=== PATIENT | male | born 1945 | race African-American/Black ===

== ENCOUNTER 2020-08-21 18:42 | Inpatient (IN) | payer MEDICARE, SELFPAY ==
[~2020-08-21] VITALS: Ht 188 cm; Wt 90.7 kg
[2020-08-21 18:42] VITALS: BP_SYST 164
[2020-08-21] MEDS ORDERED: ETOMIDATE 20 MG/ 10 ML VIAL (AMIDATE) IVP ONE (19:15)
[2020-08-21] MEDS ORDERED: INSULIN REGULAR, HUMAN 100 UNITS in NS 99 ML IV ONE ×2 (19:15)
[2020-08-21] MEDS ORDERED: SUCCINYLCHOLINE CHLORIDE 20 MG/ML(QUELICIN) IVP ONE (19:15)
[2020-08-21] MEDS ORDERED: VANCOMYCIN HCL 1,000 MG in NS 250 ML IV ONE (19:15)
[2020-08-21] MEDS ORDERED: PIPERACILLIN/TAZO 3.375 GM in NS 50 ML IV ONE (19:15)
[2020-08-21] MEDS ORDERED: NACL 0.9% 2,500 ML IV ONE (19:15)
[2020-08-21] MEDS ORDERED: PROPOFOL DRIP 100 ML IV ONE ×2 (19:45→23:05)
[2020-08-21] MEDS ORDERED: LORazepam 2 MG/ML VIAL ONE (20:21)
[2020-08-21] MEDS ORDERED: LORazepam 2 MG/ML VIAL IVP ONE (20:30)
[2020-08-21] MEDS ORDERED: INSULIN REGULAR, HUMAN 10 UNITS/0.1 ML INJ ONE (20:53)
[2020-08-21] MEDS ORDERED: PIPERACILLIN/TAZOBACTAM 3.375 GM/VIAL (ZOSYN) IV ONE (21:26)
[2020-08-21] MEDS ORDERED: VANCOMYCIN HCL 1000 MG/VIAL IV ONE (21:26)
[2020-08-21] MEDS ORDERED: PANTOPRAZOLE SODIUM 40 MG in NS 50 ML IV ONE (21:45)
[2020-08-21] MEDS ORDERED: PANTOPRAZOLE SODIUM 40 MG/VIAL (PROTONIX) ONE ×2 (22:02)
[2020-08-21 22:12] LABS: BASOPHILS # (AUTO) 0.1 K/uL (0.0-0.2); BASOPHILS % (AUTO) 0.3 % (0.0-2.0); HEMATOCRIT 28.6 % (36-54); HEMOGLOBIN 9.1 g/dL (14.0-18.0); LYMPHOCYTES # (AUTO) 0.4 K/uL (1.0-5.5); LYMPHOCYTES % (AUTO) 1.8 % (20.5-51.5); MEAN CORPUSCULAR HEMOGLOBIN 28 pg (27-31); MEAN CORPUSCULAR HGB CONC 32 % (32-36); MEAN CORPUSCULAR VOLUME 90 fL (79.0-98.0); MONOCYTES # (AUTO) 0.8 K/uL (0.0-1.0); MONOCYTES % (AUTO) 3.9 % (1.7-9.3); NEUTROPHILS # (AUTO) 20.5 K/uL (1.8-7.7); PLATELET COUNT (AUTO) 302 K/uL (130-430); RED CELL DISTRIBUTION WIDTH 15.1 % (9.0-15.0); WHITE BLOOD COUNT (AUTO) 21.8 K/uL (4.8-10.8)
[2020-08-21 22:25] LABS: C-REACTIVE PROTEIN QUANT 1.2 mg/dL (0-0.5)
[2020-08-21 22:27] LABS: ANION GAP 9 (5-15); CHLORIDE 101 mmol/L (98-107); CREATININE 4.62 mg/dL (0.55-1.30); POTASSIUM 5.2 mmol/L (3.5-5.1); SODIUM SERUM 132 mmol/L (136-145); UREA NITROGEN, BLOOD 64 mg/dL (8-21)
[2020-08-21 22:30] LABS: ALANINE AMINOTRANSFERASE 23 U/L (12-78); ALBUMIN 2.4 g/dL (3.4-4.8); ASPARTATE AMINOTRANSFERASE 15 U/L (10-37); TOTAL BILIRUBIN 0.2 mg/dL (0.0-1.0)
[2020-08-21 22:55] LABS: GLUCOSE 937 mg/dL (70-99)
[2020-08-21 23:23] LABS: ACETONE, SERUM SMALL (NEGATIVE)
[2020-08-21] MEDS ORDERED: INSU100V42 SQ (23:57)
[2020-08-22] VITALS (8 sets, daily range): BP systolic 120–141
[2020-08-22] MEDS ORDERED: MORPHINE 2 MG/ML INJ. SYRINGE IVP PRN (00:15)
[2020-08-22] MEDS ORDERED: PANTOPRAZOLE SODIUM 40 MG/VIAL (PROTONIX) IVP ONE (00:15)
[2020-08-22] MEDS ORDERED: LORazepam 2 MG/ML VIAL IVP PRN ×2 (00:15→07:45)
[2020-08-22 00:17] LABS: BILIRUBIN,URINE NEGATIVE (NEGATIVE); BLOOD, URINE 2+ (NEGATIVE); COLOR,URINE YELLOW (YELLOW); GLUCOSE,URINE 3+ (NEGATIVE); KETONES,URINE NEGATIVE (NEGATIVE); LEUKOCYTE ESTERASE ,URINE NEGATIVE (NEGATIVE); NITRITE, URINE NEGATIVE (NEGATIVE); PROTEIN URINE 3+ (NEGATIVE); UROBILINOGEN,URINE 0.2 (0.2-1.0)
[2020-08-22 00:22] LABS: CLARITY/URINE SLIGHTLY HAZY (CLEAR)
[2020-08-22] MEDS: NACL 0.9% 1,000 ML IV SCH ×2 (00:39→17:54)
[2020-08-22 00:54] LABS: BACTERIA,URINE FEW /HPF (None Seen); WBC,URINE 0-3 /HPF (0-3)
[2020-08-22 00:55] LABS: URINE AMORPHOUS URATE 1+ /HPF (None Seen)
[2020-08-22] MEDS ORDERED: PROPOFOL DRIP 100 ML IV ONE ×6 (00:59→15:12)
[2020-08-22 01:09] LABS: ACETONE, SERUM SMALL (NEGATIVE)
[2020-08-22] MEDS ORDERED: GLIP5TAB26 PO (01:31)
[2020-08-22] MEDS ORDERED: HYT1 PO (01:31)
[2020-08-22] MEDS ORDERED: FURO-150 PO (01:31)
[2020-08-22] MEDS ORDERED: CALC0.258 PO (01:31)
[2020-08-22 01:34] LABS: ALANINE AMINOTRANSFERASE 20 U/L (12-78); ALBUMIN 2.2 g/dL (3.4-4.8); ANION GAP 8 (5-15); ASPARTATE AMINOTRANSFERASE 14 U/L (10-37); CALCIUM 7.5 mg/dL (8.4-11.0); CHLORIDE 105 mmol/L (98-107); CREATININE 4.58 mg/dL (0.55-1.30); PHOSPHORUS 7.8 mg/dL (2.7-4.5); POTASSIUM 4.7 mmol/L (3.5-5.1); SODIUM SERUM 136 mmol/L (136-145); TOTAL BILIRUBIN 0.1 mg/dL (0.0-1.0); UREA NITROGEN, BLOOD 66 mg/dL (8-21)
[2020-08-22 01:35] LABS: GLUCOSE 730 mg/dL (70-99)
[2020-08-22] MEDS ORDERED: ASA81 PO (01:35)
[2020-08-22] MEDS ORDERED: ATOR10TA68 PO (01:35)
[2020-08-22] MEDS ORDERED: CLON0.1T PO (01:35)
[2020-08-22] MEDS ORDERED: FERR-69 PO (01:35)
[2020-08-22] MEDS ORDERED: TRAZ-250 PO (01:35)
[2020-08-22] MEDS ORDERED: INSU100V9 SQ (01:35)
[2020-08-22] MEDS ORDERED: METO200T3 PO (01:35)
[2020-08-22] MEDS ORDERED: HYDR100T25 PO (01:35)
[2020-08-22] MEDS ORDERED: DITXL5 PO (01:35)
[2020-08-22] MEDS ORDERED: ERGO500020 PO (01:35)
[2020-08-22] MEDS: INSULIN REGULAR, HUMAN 100 UNITS in NS 99 ML IV PRN ×2 (03:08)
[2020-08-22 07:57] LABS: BASOPHILS % (AUTO) 0.3 % (0.0-2.0); HEMOGLOBIN 8.3 g/dL (14.0-18.0); LYMPHOCYTES # (AUTO) 0.8 K/uL (1.0-5.5); LYMPHOCYTES % (AUTO) 5.6 % (20.5-51.5); MEAN CORPUSCULAR HEMOGLOBIN 28 pg (27-31); MEAN CORPUSCULAR HGB CONC 33 % (32-36); MEAN CORPUSCULAR VOLUME 86 fL (79.0-98.0); MONOCYTES # (AUTO) 0.8 K/uL (0.0-1.0); MONOCYTES % (AUTO) 5.1 % (1.7-9.3); NEUTROPHILS # (AUTO) 13.4 K/uL (1.8-7.7); PLATELET COUNT (AUTO) 224 K/uL (130-430); RED BLOOD CELL COUNT(AUTO) 2.92 MIL/uL (4.2-6.2); WHITE BLOOD COUNT (AUTO) 15.1 K/uL (4.8-10.8)
[2020-08-22 08:42] LABS: ANION GAP 11 (5-15); CALCIUM 7.8 mg/dL (8.4-11.0); CHLORIDE 107 mmol/L (98-107); CREATININE 4.47 mg/dL (0.55-1.30); POTASSIUM 4.4 mmol/L (3.5-5.1); SODIUM SERUM 139 mmol/L (136-145); UREA NITROGEN, BLOOD 65 mg/dL (8-21)
[2020-08-22 08:59] LABS: GLUCOSE 427 mg/dL (70-99)
[2020-08-22] MEDS ORDERED: FAMOTIDINE PF 20 MG/2 ML VIAL IVP SCH (09:00)
[2020-08-22] MEDS ORDERED: PIPERACILLIN/TAZO 3.375/DEX-IS 50 ML IV SCH (12:00)
[2020-08-22] MEDS ORDERED: SUCCINYLCHOLINE CHLORIDE 20 MG/ML(QUELICIN) IVP ONE (12:20)
[2020-08-22] MEDS ORDERED: ETOMIDATE 20 MG/ 10 ML VIAL (AMIDATE) IVP ONE (12:20)
[2020-08-22 12:21] LABS: ALANINE AMINOTRANSFERASE 20 U/L (12-78); ANION GAP 7 (5-15); ASPARTATE AMINOTRANSFERASE 20 U/L (10-37); CALCIUM 7.7 mg/dL (8.4-11.0); CHLORIDE 109 mmol/L (98-107); CREATININE 4.84 mg/dL (0.55-1.30); GLUCOSE 268 mg/dL (70-99); SODIUM SERUM 141 mmol/L (136-145); TOTAL BILIRUBIN 0.2 mg/dL (0.0-1.0); UREA NITROGEN, BLOOD 68 mg/dL (8-21)
[2020-08-22] MEDS: ALBUTEROL SULFATE 0.083% 2.5 MG/3 ML VIAL.NEB INH SCH (15:00)
[2020-08-22] MEDS: IPRATROPIUM BROM 0.5 MG/2.5 ML VIAL.NEB (ATROVENT) INH SCH (15:00)
[2020-08-22] MEDS: PROPOFOL DRIP 100 ML IV SCH (17:51)
[2020-08-22] MEDS: D5/0.45 NS 1,000 ML IV SCH (18:35)
[2020-08-22] MEDS: PANTOPRAZOLE SODIUM 40 MG/VIAL (PROTONIX) IVP SCH (21:31)
[2020-08-22] MEDS: levETIRAcetam 500 MG in NS 100 ML IV SCH (21:32)
[2020-08-23] VITALS (30 sets, daily range): BP systolic 111–221
[2020-08-23] MEDS: D5/0.45 NS 1,000 ML IV SCH ×2 (03:12→15:04)
[2020-08-23] MEDS ORDERED: hydrALAZINE HCL 20 MG/ML VIAL IVP PRN (03:30)
[2020-08-23] MEDS ORDERED: hydrALAZINE HCL 20 MG/ML VIAL ONE ×2 (03:39→09:27)
[2020-08-23] MEDS ORDERED: GLUCOSE (DEXTROSE) ORAL GEL -Adults PO PRN (03:45)
[2020-08-23] MEDS ORDERED: DEXTROSE 50% JECT 50 ML DISP.SYRIN IVP PRN (03:45)
[2020-08-23] MEDS ORDERED: D5W 1,000 ML IV PRN (03:45)
[2020-08-23] MEDS: PROPOFOL DRIP 100 ML IV SCH ×7 (03:50→22:04)
[2020-08-23] MEDS: hydrALAZINE HCL 20 MG/ML VIAL IVP PRN ×2 (03:51→09:29)
[2020-08-23] MEDS ORDERED: PROPOFOL DRIP 100 ML IV ONE ×2 (05:17→09:09)
[2020-08-23] MEDS: INSULIN REGULAR, HUMAN 100 UNITS/ML, 10 ML VIAL (humuLIN R) SUBCUT PRN ×4 (05:21→18:20)
[2020-08-23 06:49] LABS: ALANINE AMINOTRANSFERASE 20 U/L (12-78); ALBUMIN 2.1 g/dL (3.4-4.8); ANION GAP 12 (5-15); ASPARTATE AMINOTRANSFERASE 28 U/L (10-37); CHLORIDE 108 mmol/L (98-107); CREATININE 5.29 mg/dL (0.55-1.30); GLUCOSE 253 mg/dL (70-99); POTASSIUM 3.6 mmol/L (3.5-5.1); SODIUM SERUM 140 mmol/L (136-145); TOTAL BILIRUBIN 0.2 mg/dL (0.0-1.0); UREA NITROGEN, BLOOD 64 mg/dL (8-21)
[2020-08-23] MEDS: ALBUTEROL SULFATE 0.083% 2.5 MG/3 ML VIAL.NEB INH SCH ×3 (07:00→20:24)
[2020-08-23] MEDS: IPRATROPIUM BROM 0.5 MG/2.5 ML VIAL.NEB (ATROVENT) INH SCH ×3 (07:00→20:24)
[2020-08-23 07:51] LABS: BASOPHILS % (AUTO) 0.3 % (0.0-2.0); EOSINOPHILS % (AUTO) 0.1 % (0.0-4.0); HEMATOCRIT 25.7 % (36-54); HEMOGLOBIN 8.5 g/dL (14.0-18.0); LYMPHOCYTES # (AUTO) 1.2 K/uL (1.0-5.5); LYMPHOCYTES % (AUTO) 8.7 % (20.5-51.5); MEAN CORPUSCULAR HEMOGLOBIN 28 pg (27-31); MEAN CORPUSCULAR HGB CONC 33 % (32-36); MEAN CORPUSCULAR VOLUME 85 fL (79.0-98.0); MONOCYTES # (AUTO) 0.7 K/uL (0.0-1.0); MONOCYTES % (AUTO) 5.3 % (1.7-9.3); NEUTROPHILS # (AUTO) 11.6 K/uL (1.8-7.7); NEUTROPHILS % (AUTO) 85.6 % (40.0-70.0); PLATELET COUNT (AUTO) 236 K/uL (130-430); RED BLOOD CELL COUNT(AUTO) 3.01 MIL/uL (4.2-6.2); RED CELL DISTRIBUTION WIDTH 15.1 % (9.0-15.0); WHITE BLOOD COUNT (AUTO) 13.6 K/uL (4.8-10.8)
[2020-08-23 08:23] LABS: C-REACTIVE PROTEIN QUANT 14.5 mg/dL (0-0.5)
[2020-08-23] MEDS: levETIRAcetam 500 MG in NS 100 ML IV SCH ×2 (09:16→22:00)
[2020-08-23] MEDS: PANTOPRAZOLE SODIUM 40 MG/VIAL (PROTONIX) IVP SCH ×2 (09:17→22:00)
[2020-08-23 10:50] LABS: ERYTHROCYTE SEDIMENTATION RATE 72 MM/HR (0-15)
[2020-08-23 11:16] LABS: PROTHROMBIN TIME 9.8 SECS (9.5-12.5)
[2020-08-23] MEDS ORDERED: POTASSIUM CHLORIDE 40 MEQ in NS 250 ML IV ONE (14:30)
[2020-08-23] MEDS: METOPROLOL TARTRATE 5 MG/5 ML VIAL IVP SCH ×3 (15:04→23:49)
[2020-08-23] MEDS ORDERED: fentaNYL CITRATE/PF 100 MCG/2 ML AMP IVP PRN (18:15)
[2020-08-23] MEDS: MEROPENEM 500 MG in NS 50 ML IV SCH (22:00)
[2020-08-24] VITALS (28 sets, daily range): BP systolic 121–166
[2020-08-24] MEDS: IPRATROPIUM BROM 0.5 MG/2.5 ML VIAL.NEB (ATROVENT) INH SCH ×5 (00:07→19:00)
[2020-08-24] MEDS: ALBUTEROL SULFATE 0.083% 2.5 MG/3 ML VIAL.NEB INH SCH ×5 (00:07→19:00)
[2020-08-24] MEDS: D5/0.45 NS 1,000 ML IV SCH ×3 (01:24→20:30)
[2020-08-24] MEDS: INSULIN REGULAR, HUMAN 100 UNITS/ML, 10 ML VIAL (humuLIN R) SUBCUT PRN ×3 (01:25→19:10)
[2020-08-24] MEDS: PROPOFOL DRIP 100 ML IV SCH ×4 (03:54→19:51)
[2020-08-24] MEDS: METOPROLOL TARTRATE 5 MG/5 ML VIAL IVP SCH ×4 (05:48→23:45)
[2020-08-24 08:17] LABS: ALANINE AMINOTRANSFERASE 17 U/L (12-78); ALBUMIN 1.6 g/dL (3.4-4.8); ANION GAP 12 (5-15); CALCIUM 7.6 mg/dL (8.4-11.0); CHLORIDE 107 mmol/L (98-107); CREATININE 6.34 mg/dL (0.55-1.30); GLUCOSE 309 mg/dL (70-99); PHOSPHORUS 6.2 mg/dL (2.7-4.5); SODIUM SERUM 137 mmol/L (136-145); TOTAL BILIRUBIN 0.2 mg/dL (0.0-1.0); UREA NITROGEN, BLOOD 67 mg/dL (8-21)
[2020-08-24] MEDS: PANTOPRAZOLE SODIUM 40 MG/VIAL (PROTONIX) IVP SCH ×2 (08:49→21:00)
[2020-08-24] MEDS: levETIRAcetam 500 MG in NS 100 ML IV SCH ×2 (08:49→22:09)
[2020-08-24] MEDS: MEROPENEM 500 MG in NS 50 ML IV SCH ×2 (08:49→20:59)
[2020-08-24 09:07] LABS: HEMATOCRIT 23.8 % (36-54); MEAN CORPUSCULAR HEMOGLOBIN 29 pg (27-31); MEAN CORPUSCULAR HGB CONC 34 % (32-36); MEAN CORPUSCULAR VOLUME 86 fL (79.0-98.0); PLATELET COUNT (AUTO) 201 K/uL (130-430); RED BLOOD CELL COUNT(AUTO) 2.78 MIL/uL (4.2-6.2); RED CELL DISTRIBUTION WIDTH 16.1 % (9.0-15.0); WHITE BLOOD COUNT (AUTO) 8.8 K/uL (4.8-10.8)
[2020-08-24] MEDS ORDERED: PROPOFOL DRIP 100 ML IV ONE (09:52)
[2020-08-24 09:55] LABS: ASPARTATE AMINOTRANSFERASE 13 U/L (10-37)
[2020-08-24] MEDS ORDERED: HEPARIN SODIUM,PORCINE 5,000 UNITS/ML VIAL ONE (12:22)
[2020-08-24] MEDS ORDERED: HEPARIN SODIUM, PORCINE 10,000 UNITS/ 10 ML VIAL MC ONE (17:30)
[2020-08-25] VITALS (29 sets, daily range): BP systolic 122–169
[2020-08-25] MEDS: IPRATROPIUM BROM 0.5 MG/2.5 ML VIAL.NEB (ATROVENT) INH SCH ×7 (00:15→22:20)
[2020-08-25] MEDS: ALBUTEROL SULFATE 0.083% 2.5 MG/3 ML VIAL.NEB INH SCH ×7 (00:15→22:20)
[2020-08-25] MEDS: INSULIN REGULAR, HUMAN 100 UNITS/ML, 10 ML VIAL (humuLIN R) SUBCUT PRN ×4 (03:07→18:12)
[2020-08-25] MEDS: D5/0.45 NS 1,000 ML IV SCH (04:35)
[2020-08-25] MEDS: PROPOFOL DRIP 100 ML IV SCH ×4 (04:40→17:10)
[2020-08-25] MEDS: METOPROLOL TARTRATE 5 MG/5 ML VIAL IVP SCH ×3 (04:45→18:14)
[2020-08-25 07:00] LABS: BASOPHILS % (AUTO) 0.4 % (0.0-2.0); EOSINOPHILS # (AUTO) 0.3 K/uL (0.0-0.4); EOSINOPHILS % (AUTO) 3.5 % (0.0-4.0); LYMPHOCYTES # (AUTO) 0.8 K/uL (1.0-5.5); LYMPHOCYTES % (AUTO) 10.3 % (20.5-51.5); MEAN CORPUSCULAR HEMOGLOBIN 29 pg (27-31); MEAN CORPUSCULAR HGB CONC 34 % (32-36); MEAN CORPUSCULAR VOLUME 85 fL (79.0-98.0); MONOCYTES # (AUTO) 0.5 K/uL (0.0-1.0); NEUTROPHILS # (AUTO) 5.9 K/uL (1.8-7.7); NEUTROPHILS % (AUTO) 78.8 % (40.0-70.0); PLATELET COUNT (AUTO) 196 K/uL (130-430); RED CELL DISTRIBUTION WIDTH 15.4 % (9.0-15.0); WHITE BLOOD COUNT (AUTO) 7.5 K/uL (4.8-10.8)
[2020-08-25 07:09] LABS: ALANINE AMINOTRANSFERASE 17 U/L (12-78); ALBUMIN 1.7 g/dL (3.4-4.8); ANION GAP 12 (5-15); ASPARTATE AMINOTRANSFERASE 9 U/L (10-37); CALCIUM 7.3 mg/dL (8.4-11.0); CHLORIDE 102 mmol/L (98-107); CREATININE 5.35 mg/dL (0.55-1.30); GLUCOSE 383 mg/dL (70-99); PHOSPHORUS 6.3 mg/dL (2.7-4.5); POTASSIUM 3.8 mmol/L (3.5-5.1); SODIUM SERUM 136 mmol/L (136-145); TOTAL BILIRUBIN 0.2 mg/dL (0.0-1.0); UREA NITROGEN, BLOOD 48 mg/dL (8-21)
[2020-08-25 07:56] LABS: BAND % (MANUAL) 16 % (0-6)
[2020-08-25 07:57] LABS: BASOPHILS % (MANUAL) 0 % (0-2); EOSINOPHILS % (MANUAL) 4 % (0-7); LYMPHOCYTES % (MANUAL) 0 % (20-46); MONOCYTES % (MANUAL) 3 % (0-11)
[2020-08-25 08:05] LABS: C-REACTIVE PROTEIN QUANT 18.1 mg/dL (0-0.5)
[2020-08-25] MEDS: MEROPENEM 500 MG in NS 50 ML IV SCH ×2 (08:05→20:16)
[2020-08-25] MEDS: PANTOPRAZOLE SODIUM 40 MG/VIAL (PROTONIX) IVP SCH ×2 (08:05→20:16)
[2020-08-25] MEDS: levETIRAcetam 500 MG in NS 100 ML IV SCH ×2 (08:05→21:02)
[2020-08-25] MEDS: MORPHINE 4 MG/ML INJ. SYRINGE IVP PRN (08:20)
[2020-08-25] MEDS ORDERED: ACETAMINOPHEN 650 MG/20.3 ML UDC ONE (08:23)
[2020-08-25 09:54] LABS: HEMATOCRIT 21.2 % (36-54); HEMOGLOBIN 7.1 g/dL (14.0-18.0)
[2020-08-25 10:22] LABS: C-REACTIVE PROTEIN QUANT 21.6 mg/dL (0-0.5)
[2020-08-25 11:20] LABS: ERYTHROCYTE SEDIMENTATION RATE 90 MM/HR (0-15)
[2020-08-25] MEDS: ACETAMINOPHEN 650 MG/20.3 ML UDC GT PRN (11:48)
[2020-08-25] MEDS: 0.45% NACL 1,000 ML IV SCH (11:48)
[2020-08-25] MEDS ORDERED: INSULIN GLARGINE 100 UNITS/ML 10 ML VIAL SUBCUT ONE (12:00)
[2020-08-25] MEDS ORDERED: HEPARIN SODIUM,PORCINE 5,000 UNITS/ML VIAL ONE (14:22)
[2020-08-25] MEDS: DEXMEDETOMIDINE HCL 400 MCG in NS 96 ML IV PRN (20:18)
[2020-08-26] VITALS (20 sets, daily range): BP systolic 137–173
[2020-08-26] LABS: HEMOGLOBIN 7.3 g/dL (14.0-18.0)
[2020-08-26 00:02] LABS: HEMATOCRIT 21.6 % (36-54)
[2020-08-26] MEDS: METOPROLOL TARTRATE 5 MG/5 ML VIAL IVP SCH ×4 (00:05→17:45)
[2020-08-26] MEDS: INSULIN REGULAR, HUMAN 100 UNITS/ML, 10 ML VIAL (humuLIN R) SUBCUT PRN ×4 (00:24→18:32)
[2020-08-26] MEDS: ALBUTEROL SULFATE 0.083% 2.5 MG/3 ML VIAL.NEB INH SCH ×6 (02:20→23:00)
[2020-08-26] MEDS: IPRATROPIUM BROM 0.5 MG/2.5 ML VIAL.NEB (ATROVENT) INH SCH ×6 (02:20→23:00)
[2020-08-26] MEDS: MORPHINE 4 MG/ML INJ. SYRINGE IVP PRN ×2 (04:26→09:33)
[2020-08-26] MEDS: 0.45% NACL 1,000 ML IV SCH (05:47)
[2020-08-26 07:32] LABS: BASOPHILS # (AUTO) 0.1 K/uL (0.0-0.2); BASOPHILS % (AUTO) 0.6 % (0.0-2.0); EOSINOPHILS # (AUTO) 0.6 K/uL (0.0-0.4); EOSINOPHILS % (AUTO) 6.3 % (0.0-4.0); HEMATOCRIT 25.5 % (36-54); HEMOGLOBIN 8.6 g/dL (14.0-18.0); LYMPHOCYTES # (AUTO) 0.7 K/uL (1.0-5.5); LYMPHOCYTES % (AUTO) 8.5 % (20.5-51.5); MEAN CORPUSCULAR HEMOGLOBIN 29 pg (27-31); MEAN CORPUSCULAR HGB CONC 34 % (32-36); MEAN CORPUSCULAR VOLUME 85 fL (79.0-98.0); MONOCYTES # (AUTO) 0.7 K/uL (0.0-1.0); MONOCYTES % (AUTO) 7.6 % (1.7-9.3); NEUTROPHILS # (AUTO) 6.8 K/uL (1.8-7.7); PLATELET COUNT (AUTO) 201 K/uL (130-430); RED CELL DISTRIBUTION WIDTH 15.5 % (9.0-15.0); WHITE BLOOD COUNT (AUTO) 8.9 K/uL (4.8-10.8)
[2020-08-26 08:46] LABS: ERYTHROCYTE SEDIMENTATION RATE 92 MM/HR (0-15)
[2020-08-26] MEDS ORDERED: INSULIN GLARGINE 100 UNITS/ML 10 ML VIAL SUBCUT SCH (09:00)
[2020-08-26 09:02] LABS: ANION GAP 11 (5-15); CALCIUM 7.9 mg/dL (8.4-11.0); CHLORIDE 102 mmol/L (98-107); GLUCOSE 285 mg/dL (70-99); PHOSPHORUS 6.6 mg/dL (2.7-4.5); POTASSIUM 4.2 mmol/L (3.5-5.1); SODIUM SERUM 139 mmol/L (136-145); UREA NITROGEN, BLOOD 39 mg/dL (8-21)
[2020-08-26] MEDS: MEROPENEM 500 MG in NS 50 ML IV SCH ×3 (09:27→21:59)
[2020-08-26] MEDS: PANTOPRAZOLE SODIUM 40 MG/VIAL (PROTONIX) IVP SCH ×2 (09:27→21:59)
[2020-08-26] MEDS: levETIRAcetam 500 MG in NS 100 ML IV SCH ×2 (09:28→21:59)
[2020-08-26] MEDS: ACETAMINOPHEN 650 MG/20.3 ML UDC GT PRN (10:40)
[2020-08-26] MEDS ORDERED: OFLOXACIN 0.3% OPHTHALMIC DROPS 5 ML OP ONE (13:45)
[2020-08-26] MEDS ORDERED: DOCUSATE SODIUM 250 MG CAPSULE PO ONE (14:00)
[2020-08-26] MEDS ORDERED: POLYETHYLENE GLYCOL 3350, 17 GM/ POWD.PACK PO ONE (14:00)
[2020-08-26] MEDS ORDERED: SENNA 8.8 MG/5 ML UDC GT SCH ×2 (14:15→21:00)
[2020-08-26 14:19] LABS: C-REACTIVE PROTEIN QUANT 15.8 mg/dL (0-0.5)
[2020-08-26] MEDS ORDERED: SENNOSIDES 8.6 MG TABLET ONE (14:50)
[2020-08-26] MEDS ORDERED: FUROSEMIDE 40 MG/4 ML VIAL IVP ONE (15:00)
[2020-08-26] MEDS: SENNA 8.8 MG/5 ML UDC GT SCH (15:30)
[2020-08-26] MEDS ORDERED: INSULIN GLARGINE 100 UNITS/ML 10 ML VIAL SUBCUT ONE (16:30)
[2020-08-26] MEDS: OFLOXACIN 0.3% OPHTHALMIC DROPS 5 ML OP SCH ×2 (17:00→21:00)
[2020-08-26 18:10] LABS: BARBITURATE, URINE NEGATIVE (NEG <=200); METHAMPHETAMINES SCREEN,URINE NEGATIVE (NEG <=500); URINE AMPHETAMINE NEGATIVE (NEG <=500); URINE METHADONE NEGATIVE (NEG <=200)
[2020-08-26 18:11] LABS: BENZODIAZEPINE, URINE POSITIVE (NEG <=150); CANNABINOID, URINE NEGATIVE (NEG <=50); COCAINE, URINE NEGATIVE (NEG <=150); OPIATE, URINE POSITIVE (NEG <=100); PHENCYCLIDINE SCREEN,URINE NEGATIVE (NEG <=25); UR TRICYCLIC ANTIDEPRESSANTS NEGATIVE (NEG <=300); URINE OXYCODONE SCREEN NEGATIVE (NEG <=100); URINE PROPOXYPHENE SCREEN NEGATIVE (NEG <=300)
[2020-08-26] MEDS: DOCUSATE SODIUM 100 MG/10 ML UDC PO SCH (21:00)
[2020-08-26] MEDS ORDERED: DOCUSATE SODIUM 250 MG CAPSULE PO SCH (21:00)
[2020-08-26] MEDS: DEXMEDETOMIDINE HCL 400 MCG in NS 96 ML IV PRN (22:13)
[2020-08-27] VITALS (31 sets, daily range): BP systolic 123–188
[2020-08-27] MEDS: METOPROLOL TARTRATE 5 MG/5 ML VIAL IVP SCH ×5 (00:17→23:14)
[2020-08-27] MEDS: INSULIN REGULAR, HUMAN 100 UNITS/ML, 10 ML VIAL (humuLIN R) SUBCUT PRN ×5 (00:18→23:32)
[2020-08-27] MEDS: IPRATROPIUM BROM 0.5 MG/2.5 ML VIAL.NEB (ATROVENT) INH SCH ×6 (03:51→23:56)
[2020-08-27] MEDS: ALBUTEROL SULFATE 0.083% 2.5 MG/3 ML VIAL.NEB INH SCH ×6 (03:51→23:56)
[2020-08-27] MEDS ORDERED: METOPROLOL TARTRATE 5 MG/5 ML VIAL ONE (05:12)
[2020-08-27 06:44] LABS: BASOPHILS % (AUTO) 0.4 % (0.0-2.0); EOSINOPHILS # (AUTO) 0.6 K/uL (0.0-0.4); EOSINOPHILS % (AUTO) 7.2 % (0.0-4.0); HEMOGLOBIN 7.8 g/dL (14.0-18.0); LYMPHOCYTES # (AUTO) 0.8 K/uL (1.0-5.5); LYMPHOCYTES % (AUTO) 10.1 % (20.5-51.5); MEAN CORPUSCULAR HEMOGLOBIN 29 pg (27-31); MEAN CORPUSCULAR HGB CONC 34 % (32-36); MEAN CORPUSCULAR VOLUME 85 fL (79.0-98.0); MONOCYTES # (AUTO) 0.7 K/uL (0.0-1.0); MONOCYTES % (AUTO) 9.3 % (1.7-9.3); NEUTROPHILS # (AUTO) 5.6 K/uL (1.8-7.7); PLATELET COUNT (AUTO) 218 K/uL (130-430); RED BLOOD CELL COUNT(AUTO) 2.71 MIL/uL (4.2-6.2); RED CELL DISTRIBUTION WIDTH 15.2 % (9.0-15.0); WHITE BLOOD COUNT (AUTO) 7.7 K/uL (4.8-10.8)
[2020-08-27 07:40] LABS: ALANINE AMINOTRANSFERASE 18 U/L (12-78); ALBUMIN 1.7 g/dL (3.4-4.8); ASPARTATE AMINOTRANSFERASE 13 U/L (10-37); CALCIUM 8.3 mg/dL (8.4-11.0); CHLORIDE 103 mmol/L (98-107); CREATININE 5.62 mg/dL (0.55-1.30); GLUCOSE 193 mg/dL (70-99); PHOSPHORUS 7.8 mg/dL (2.7-4.5); POTASSIUM 4.7 mmol/L (3.5-5.1); SODIUM SERUM 139 mmol/L (136-145); TOTAL BILIRUBIN 0.3 mg/dL (0.0-1.0); UREA NITROGEN, BLOOD 56 mg/dL (8-21)
[2020-08-27] MEDS: PANTOPRAZOLE SODIUM 40 MG/VIAL (PROTONIX) IVP SCH ×2 (08:07→21:36)
[2020-08-27] MEDS: POLYETHYLENE GLYCOL 3350, 17 GM/ POWD.PACK PO SCH (08:07)
[2020-08-27] MEDS: DOCUSATE SODIUM 100 MG/10 ML UDC PO SCH ×2 (08:07→21:43)
[2020-08-27] MEDS: OFLOXACIN 0.3% OPHTHALMIC DROPS 5 ML OP SCH ×2 (08:07→09:00)
[2020-08-27] MEDS: MORPHINE 4 MG/ML INJ. SYRINGE IVP PRN ×2 (08:08→13:00)
[2020-08-27 08:10] LABS: ANION GAP 11 (5-15)
[2020-08-27 08:31] LABS: ERYTHROCYTE SEDIMENTATION RATE 95 MM/HR (0-15)
[2020-08-27] MEDS: SENNA 8.8 MG/5 ML UDC GT SCH (08:51)
[2020-08-27] MEDS: levETIRAcetam 500 MG in NS 100 ML IV SCH ×2 (08:52→21:36)
[2020-08-27] MEDS: INSULIN GLARGINE 100 UNITS/ML 10 ML VIAL SUBCUT SCH (08:53)
[2020-08-27] MEDS ORDERED: SENNOSIDES 8.6 MG TABLET PO SCH (09:00)
[2020-08-27] MEDS ORDERED: SENNA 8.8 MG/5 ML UDC GT SCH (09:00)
[2020-08-27] MEDS: MEROPENEM 500 MG in NS 50 ML IV SCH (09:00)
[2020-08-27] MEDS: CEFEPIME 1 GM in D5W 50 ML IV SCH (11:00)
[2020-08-27] MEDS: SULFACETAMIDE SODIUM 10% EYE DROPS 15 ML OP SCH ×4 (11:00→20:00)
[2020-08-27 11:52] LABS: C-REACTIVE PROTEIN QUANT 14.8 mg/dL (0-0.5)
[2020-08-27] MEDS: ACETAMINOPHEN 650 MG/20.3 ML UDC GT PRN ×2 (12:24→16:30)
[2020-08-27] MEDS: DEXMEDETOMIDINE HCL 400 MCG in NS 96 ML IV PRN (19:52)
[2020-08-28] VITALS (30 sets, daily range): BP systolic 132–210
[2020-08-28] MEDS: ALBUTEROL SULFATE 0.083% 2.5 MG/3 ML VIAL.NEB INH SCH ×5 (03:34→23:45)
[2020-08-28] MEDS: IPRATROPIUM BROM 0.5 MG/2.5 ML VIAL.NEB (ATROVENT) INH SCH ×5 (03:34→23:45)
[2020-08-28] MEDS: METOPROLOL TARTRATE 5 MG/5 ML VIAL IVP SCH ×4 (06:58→23:10)
[2020-08-28 07:29] LABS: EOSINOPHILS # (AUTO) 0.4 K/uL (0.0-0.4); HEMOGLOBIN 8.7 g/dL (14.0-18.0); LYMPHOCYTES # (AUTO) 1.1 K/uL (1.0-5.5); MONOCYTES # (AUTO) 1.1 K/uL (0.0-1.0); MONOCYTES % (AUTO) 12.5 % (1.7-9.3)
[2020-08-28 07:37] LABS: BASOPHILS % (AUTO) 0.5 % (0.0-2.0); EOSINOPHILS % (AUTO) 4.3 % (0.0-4.0); HEMATOCRIT 25.7 % (36-54); LYMPHOCYTES % (AUTO) 12.6 % (20.5-51.5); MEAN CORPUSCULAR HEMOGLOBIN 29 pg (27-31); MEAN CORPUSCULAR HGB CONC 34 % (32-36); MEAN CORPUSCULAR VOLUME 85 fL (79.0-98.0); NEUTROPHILS # (AUTO) 6.1 K/uL (1.8-7.7); NEUTROPHILS % (AUTO) 70.1 % (40.0-70.0); PLATELET COUNT (AUTO) 249 K/uL (130-430); RED CELL DISTRIBUTION WIDTH 15.2 % (9.0-15.0); WHITE BLOOD COUNT (AUTO) 8.7 K/uL (4.8-10.8)
[2020-08-28] MEDS: DEXMEDETOMIDINE HCL 400 MCG in NS 96 ML IV PRN (08:01)
[2020-08-28] MEDS: levETIRAcetam 500 MG in NS 100 ML IV SCH ×2 (08:25→21:11)
[2020-08-28] MEDS: POLYETHYLENE GLYCOL 3350, 17 GM/ POWD.PACK PO SCH (08:25)
[2020-08-28] MEDS: SENNA 8.8 MG/5 ML UDC GT SCH (08:25)
[2020-08-28] MEDS: PANTOPRAZOLE SODIUM 40 MG/VIAL (PROTONIX) IVP SCH ×2 (08:26→21:11)
[2020-08-28] MEDS: SULFACETAMIDE SODIUM 10% EYE DROPS 15 ML OP SCH ×5 (08:27→21:12)
[2020-08-28] MEDS: INSULIN GLARGINE 100 UNITS/ML 10 ML VIAL SUBCUT SCH (08:29)
[2020-08-28] MEDS: DOCUSATE SODIUM 100 MG/10 ML UDC PO SCH ×2 (09:02→21:11)
[2020-08-28] MEDS ORDERED: hydrALAZINE HCL 20 MG/ML VIAL ONE ×2 (09:11→18:57)
[2020-08-28] MEDS: hydrALAZINE HCL 20 MG/ML VIAL IVP PRN ×2 (09:13→19:00)
[2020-08-28 10:23] LABS: ANION GAP 16 (5-15); CALCIUM 8.9 mg/dL (8.4-11.0); CHLORIDE 104 mmol/L (98-107); CREATININE 6.64 mg/dL (0.55-1.30); GLUCOSE 136 mg/dL (70-99); SODIUM SERUM 141 mmol/L (136-145); UREA NITROGEN, BLOOD 72 mg/dL (8-21)
[2020-08-28] MEDS: CEFEPIME 1 GM in D5W 50 ML IV SCH (11:00)
[2020-08-28] MEDS ORDERED: METOPROLOL TARTRATE 50 MG TABLET PO ONE (11:45)
[2020-08-28] MEDS: INSULIN REGULAR, HUMAN 100 UNITS/ML, 10 ML VIAL (humuLIN R) SUBCUT PRN ×2 (12:27→23:17)
[2020-08-28 12:30] LABS: ERYTHROCYTE SEDIMENTATION RATE 112 MM/HR (0-15)
[2020-08-28] MEDS ORDERED: HEPARIN SODIUM,PORCINE 5,000 UNITS/ML VIAL ONE (13:14)
[2020-08-28 13:20] LABS: C-REACTIVE PROTEIN QUANT 15.7 mg/dL (0-0.5)
[2020-08-28] MEDS ORDERED: DEXMEDETOMIDINE HCL 400 MCG in NS 96 ML IV PRN (16:15)
[2020-08-28] MEDS: METOPROLOL TARTRATE 50 MG TABLET PO SCH (21:12)
[2020-08-29] VITALS (21 sets, daily range): BP systolic 130–189
[2020-08-29] MEDS: IPRATROPIUM BROM 0.5 MG/2.5 ML VIAL.NEB (ATROVENT) INH SCH ×6 (04:22→23:32)
[2020-08-29] MEDS: ALBUTEROL SULFATE 0.083% 2.5 MG/3 ML VIAL.NEB INH SCH ×6 (04:22→23:32)
[2020-08-29] MEDS ORDERED: hydrALAZINE HCL 20 MG/ML VIAL ONE ×2 (04:50→12:11)
[2020-08-29] MEDS: hydrALAZINE HCL 20 MG/ML VIAL IVP PRN ×2 (04:54→12:12)
[2020-08-29] MEDS: METOPROLOL TARTRATE 5 MG/5 ML VIAL IVP SCH ×3 (05:41→17:59)
[2020-08-29 06:34] LABS: BASOPHILS % (AUTO) 0.5 % (0.0-2.0); EOSINOPHILS # (AUTO) 0.1 K/uL (0.0-0.4); EOSINOPHILS % (AUTO) 0.8 % (0.0-4.0); HEMATOCRIT 23.9 % (36-54); HEMOGLOBIN 8.1 g/dL (14.0-18.0); LYMPHOCYTES # (AUTO) 0.8 K/uL (1.0-5.5); LYMPHOCYTES % (AUTO) 10.2 % (20.5-51.5); MEAN CORPUSCULAR HEMOGLOBIN 29 pg (27-31); MEAN CORPUSCULAR HGB CONC 34 % (32-36); MEAN CORPUSCULAR VOLUME 85 fL (79.0-98.0); MONOCYTES # (AUTO) 1.1 K/uL (0.0-1.0); MONOCYTES % (AUTO) 13.7 % (1.7-9.3); NEUTROPHILS # (AUTO) 6.2 K/uL (1.8-7.7); NEUTROPHILS % (AUTO) 74.8 % (40.0-70.0); PLATELET COUNT (AUTO) 257 K/uL (130-430); RED BLOOD CELL COUNT(AUTO) 2.81 MIL/uL (4.2-6.2); RED CELL DISTRIBUTION WIDTH 15.1 % (9.0-15.0); WHITE BLOOD COUNT (AUTO) 8.3 K/uL (4.8-10.8)
[2020-08-29 07:25] LABS: ALANINE AMINOTRANSFERASE 18 U/L (12-78); ALBUMIN 1.8 g/dL (3.4-4.8); ANION GAP 12 (5-15); CALCIUM 8.6 mg/dL (8.4-11.0); CHLORIDE 102 mmol/L (98-107); GLUCOSE 127 mg/dL (70-99); PHOSPHORUS 7.5 mg/dL (2.7-4.5); POTASSIUM 3.5 mmol/L (3.5-5.1); SODIUM SERUM 143 mmol/L (136-145); TOTAL BILIRUBIN 0.2 mg/dL (0.0-1.0); UREA NITROGEN, BLOOD 53 mg/dL (8-21)
[2020-08-29 08:09] LABS: ASPARTATE AMINOTRANSFERASE 22 U/L (10-37)
[2020-08-29 08:59] LABS: ERYTHROCYTE SEDIMENTATION RATE 115 MM/HR (0-15)
[2020-08-29] MEDS: POLYETHYLENE GLYCOL 3350, 17 GM/ POWD.PACK PO SCH (09:29)
[2020-08-29] MEDS: PANTOPRAZOLE SODIUM 40 MG/VIAL (PROTONIX) IVP SCH ×2 (09:30→20:10)
[2020-08-29] MEDS: INSULIN GLARGINE 100 UNITS/ML 10 ML VIAL SUBCUT SCH (09:30)
[2020-08-29] MEDS: METOPROLOL TARTRATE 50 MG TABLET PO SCH ×2 (09:32→20:11)
[2020-08-29] MEDS: levETIRAcetam 500 MG in NS 100 ML IV SCH (09:34)
[2020-08-29] MEDS: SENNA 8.8 MG/5 ML UDC GT SCH (09:34)
[2020-08-29] MEDS: SULFACETAMIDE SODIUM 10% EYE DROPS 15 ML OP SCH ×5 (09:35→20:41)
[2020-08-29] MEDS: DOCUSATE SODIUM 100 MG/10 ML UDC PO SCH ×2 (10:06→20:10)
[2020-08-29] MEDS: CEFEPIME 1 GM in D5W 50 ML IV SCH (10:07)
[2020-08-29 10:42] LABS: C-REACTIVE PROTEIN QUANT 19.8 mg/dL (0-0.5)
[2020-08-29] MEDS: INSULIN REGULAR, HUMAN 100 UNITS/ML, 10 ML VIAL (humuLIN R) SUBCUT PRN (18:07)
[2020-08-29] MEDS: TERAZOSIN HCL 1 MG CAPSULE (HYTRIN) PO SCH (20:10)
[2020-08-29] MEDS: traZODone HCL 50 MG TABLET (DESYREL) PO SCH (20:10)
[2020-08-29] MEDS: hydrALAZINE HCL 25 MG TABLET PO SCH (20:11)
[2020-08-30] VITALS: BP_SYST 157
[2020-08-30] MEDS: INSULIN REGULAR, HUMAN 100 UNITS/ML, 10 ML VIAL (humuLIN R) SUBCUT PRN ×2 (00:57→13:04)
[2020-08-30] MEDS: ALBUTEROL SULFATE 0.083% 2.5 MG/3 ML VIAL.NEB INH SCH ×6 (04:29→23:54)
[2020-08-30] MEDS: IPRATROPIUM BROM 0.5 MG/2.5 ML VIAL.NEB (ATROVENT) INH SCH ×6 (04:29→23:54)
[2020-08-30] MEDS ORDERED: NS IV ONE (06:00)
[2020-08-30] MEDS ORDERED: DAPTOMYCIN IV ONE (06:00)
[2020-08-30] MEDS: INSULIN GLARGINE 100 UNITS/ML 10 ML VIAL SQ SCH (06:44)
[2020-08-30 07:56] LABS: BASOPHILS # (AUTO) 0.1 K/uL (0.0-0.2); BASOPHILS % (AUTO) 0.8 % (0.0-2.0); EOSINOPHILS # (AUTO) 0.3 K/uL (0.0-0.4); EOSINOPHILS % (AUTO) 3.5 % (0.0-4.0); HEMATOCRIT 23.7 % (36-54); HEMOGLOBIN 7.9 g/dL (14.0-18.0); LYMPHOCYTES # (AUTO) 1.3 K/uL (1.0-5.5); LYMPHOCYTES % (AUTO) 14.9 % (20.5-51.5); MEAN CORPUSCULAR HEMOGLOBIN 29 pg (27-31); MEAN CORPUSCULAR HGB CONC 34 % (32-36); MEAN CORPUSCULAR VOLUME 85 fL (79.0-98.0); MONOCYTES # (AUTO) 0.8 K/uL (0.0-1.0); MONOCYTES % (AUTO) 9.3 % (1.7-9.3); NEUTROPHILS # (AUTO) 6.1 K/uL (1.8-7.7); NEUTROPHILS % (AUTO) 71.5 % (40.0-70.0); PLATELET COUNT (AUTO) 289 K/uL (130-430); RED BLOOD CELL COUNT(AUTO) 2.78 MIL/uL (4.2-6.2); RED CELL DISTRIBUTION WIDTH 14.5 % (9.0-15.0); WHITE BLOOD COUNT (AUTO) 8.6 K/uL (4.8-10.8)
[2020-08-30 08:00] VITALS: BP_SYST 146
[2020-08-30 08:27] LABS: ANION GAP 11 (5-15); CALCIUM 8.6 mg/dL (8.4-11.0); CHLORIDE 103 mmol/L (98-107); GLUCOSE 110 mg/dL (70-99); PHOSPHORUS 8.1 mg/dL (2.7-4.5); POTASSIUM 3.6 mmol/L (3.5-5.1); SODIUM SERUM 143 mmol/L (136-145); UREA NITROGEN, BLOOD 65 mg/dL (8-21)
[2020-08-30] MEDS: hydrALAZINE HCL 25 MG TABLET PO SCH ×2 (09:00→22:06)
[2020-08-30] MEDS: OXYBUTYNIN CHLORIDE 5 MG TABLET PO SCH ×2 (09:00→21:00)
[2020-08-30 09:36] LABS: C-REACTIVE PROTEIN QUANT 23.5 mg/dL (0-0.5)
[2020-08-30] MEDS ORDERED: HEPARIN SODIUM,PORCINE 5,000 UNITS/ML VIAL SUBCUT ONE ×3 (10:00→13:00)
[2020-08-30] MEDS: FERROUS SULFATE 325 MG TABLET.DR PO SCH (10:12)
[2020-08-30] MEDS: glipiZIDE XL 5 MG TAB ( GLUCOTROL XL) PO SCH (10:12)
[2020-08-30] MEDS: DOCUSATE SODIUM 100 MG/10 ML UDC PO SCH ×2 (10:12→22:05)
[2020-08-30] MEDS: POLYETHYLENE GLYCOL 3350, 17 GM/ POWD.PACK PO SCH (10:12)
[2020-08-30] MEDS: PANTOPRAZOLE SODIUM 40 MG/VIAL (PROTONIX) IVP SCH ×2 (10:12→22:07)
[2020-08-30] MEDS: SENNA 8.8 MG/5 ML UDC GT SCH (10:20)
[2020-08-30] MEDS: calcitrioL 0.25 MCG CAPSULE PO SCH (10:39)
[2020-08-30] MEDS: ATORVASTATIN 10 MG TABLET PO SCH (10:39)
[2020-08-30 11:47] LABS: ERYTHROCYTE SEDIMENTATION RATE 119 MM/HR (0-15)
[2020-08-30 12:15] VITALS: BP_SYST 165
[2020-08-30] MEDS: SULFACETAMIDE SODIUM 10% EYE DROPS 15 ML OP SCH ×4 (12:56→22:07)
[2020-08-30] MEDS: METOPROLOL SUCCINATE 50 MG TAB.SR.24H (TOPROL XL) PO SCH (14:54)
[2020-08-30 16:18] VITALS: BP_SYST 159
[2020-08-30] MEDS: CEFEPIME 1 GM in D5W 50 ML IV SCH (17:07)
[2020-08-30] MEDS: DAPTOmycin 600 MG in NS 50 ML IV SCH (17:50)
[2020-08-30 19:30] VITALS: BP_SYST 184
[2020-08-30] MEDS: TERAZOSIN HCL 1 MG CAPSULE (HYTRIN) PO SCH (22:06)
[2020-08-30] MEDS: traZODone HCL 50 MG TABLET (DESYREL) PO SCH (22:06)
[2020-08-30] MEDS: HEPARIN SODIUM,PORCINE 5,000 UNITS/ML VIAL SUBCUT SCH (22:15)
[2020-08-30 23:59] VITALS: BP_SYST 150
[2020-08-31] MEDS: INSULIN GLARGINE 100 UNITS/ML 10 ML VIAL SQ SCH (06:26)
[2020-08-31 08:00] VITALS: BP_SYST 130
[2020-08-31 08:22] LABS: BASOPHILS % (AUTO) 0.5 % (0.0-2.0); EOSINOPHILS # (AUTO) 0.4 K/uL (0.0-0.4); EOSINOPHILS % (AUTO) 5.5 % (0.0-4.0); HEMATOCRIT 22.9 % (36-54); HEMOGLOBIN 7.6 g/dL (14.0-18.0); LYMPHOCYTES # (AUTO) 1.3 K/uL (1.0-5.5); LYMPHOCYTES % (AUTO) 16.8 % (20.5-51.5); MEAN CORPUSCULAR HEMOGLOBIN 28 pg (27-31); MEAN CORPUSCULAR HGB CONC 33 % (32-36); MEAN CORPUSCULAR VOLUME 85 fL (79.0-98.0); MONOCYTES # (AUTO) 0.7 K/uL (0.0-1.0); MONOCYTES % (AUTO) 9.9 % (1.7-9.3); NEUTROPHILS % (AUTO) 67.3 % (40.0-70.0); PLATELET COUNT (AUTO) 311 K/uL (130-430); RED CELL DISTRIBUTION WIDTH 14.2 % (9.0-15.0); WHITE BLOOD COUNT (AUTO) 7.4 K/uL (4.8-10.8)
[2020-08-31 08:36] LABS: ALANINE AMINOTRANSFERASE 25 U/L (12-78); ALBUMIN 1.9 g/dL (3.4-4.8); ANION GAP 10 (5-15); ASPARTATE AMINOTRANSFERASE 27 U/L (10-37); CALCIUM 8.3 mg/dL (8.4-11.0); CHLORIDE 102 mmol/L (98-107); GLUCOSE 99 mg/dL (70-99); PHOSPHORUS 5.3 mg/dL (2.7-4.5); POTASSIUM 3.4 mmol/L (3.5-5.1); SODIUM SERUM 140 mmol/L (136-145); TOTAL BILIRUBIN 0.3 mg/dL (0.0-1.0); UREA NITROGEN, BLOOD 50 mg/dL (8-21)
[2020-08-31] MEDS: SULFACETAMIDE SODIUM 10% EYE DROPS 15 ML OP SCH ×5 (08:44→21:25)
[2020-08-31] MEDS: SENNA 8.8 MG/5 ML UDC GT SCH (08:45)
[2020-08-31] MEDS: calcitrioL 0.25 MCG CAPSULE PO SCH (08:45)
[2020-08-31] MEDS: METOPROLOL SUCCINATE 50 MG TAB.SR.24H (TOPROL XL) PO SCH (08:46)
[2020-08-31] MEDS: OXYBUTYNIN CHLORIDE 5 MG TABLET PO SCH ×2 (08:46→21:00)
[2020-08-31] MEDS: FERROUS SULFATE 325 MG TABLET.DR PO SCH (08:47)
[2020-08-31] MEDS: hydrALAZINE HCL 25 MG TABLET PO SCH ×2 (08:47→21:34)
[2020-08-31] MEDS: ATORVASTATIN 10 MG TABLET PO SCH (08:48)
[2020-08-31] MEDS: glipiZIDE XL 5 MG TAB ( GLUCOTROL XL) PO SCH (08:48)
[2020-08-31] MEDS: POLYETHYLENE GLYCOL 3350, 17 GM/ POWD.PACK PO SCH (08:48)
[2020-08-31] MEDS: DOCUSATE SODIUM 100 MG/10 ML UDC PO SCH ×2 (08:48→21:24)
[2020-08-31] MEDS: HEPARIN SODIUM,PORCINE 5,000 UNITS/ML VIAL SUBCUT SCH ×2 (08:50→21:43)
[2020-08-31] MEDS: PANTOPRAZOLE SODIUM 40 MG/VIAL (PROTONIX) IVP SCH ×2 (08:52→21:25)
[2020-08-31 09:35] LABS: C-REACTIVE PROTEIN QUANT 18.1 mg/dL (0-0.5)
[2020-08-31 10:09] LABS: ERYTHROCYTE SEDIMENTATION RATE 119 MM/HR (0-15)
[2020-08-31] MEDS: ALBUTEROL SULFATE 0.083% 2.5 MG/3 ML VIAL.NEB INH SCH ×5 (11:00→23:30)
[2020-08-31] MEDS: IPRATROPIUM BROM 0.5 MG/2.5 ML VIAL.NEB (ATROVENT) INH SCH ×5 (11:00→23:31)
[2020-08-31 11:26] VITALS: BP_SYST 135
[2020-08-31 11:54] VITALS: BP_SYST 135
[2020-08-31 16:15] VITALS: BP_SYST 148
[2020-08-31] MEDS: CEFEPIME 1 GM in D5W 50 ML IV SCH (16:21)
[2020-08-31] MEDS: DEXTROSE 50% JECT 50 ML DISP.SYRIN IVP PRN (17:28)
[2020-08-31] MEDS: traZODone HCL 50 MG TABLET (DESYREL) PO SCH (21:25)
[2020-08-31] MEDS: TERAZOSIN HCL 1 MG CAPSULE (HYTRIN) PO SCH (21:52)
[2020-09-01 00:58] VITALS: BP_SYST 161
[2020-09-01] MEDS: DEXTROSE 50% JECT 50 ML DISP.SYRIN IVP PRN ×2 (01:05→06:39)
[2020-09-01] MEDS: ALBUTEROL SULFATE 0.083% 2.5 MG/3 ML VIAL.NEB INH SCH ×6 (03:00→23:51)
[2020-09-01] MEDS: IPRATROPIUM BROM 0.5 MG/2.5 ML VIAL.NEB (ATROVENT) INH SCH ×6 (03:00→23:51)
[2020-09-01] MEDS: INSULIN GLARGINE 100 UNITS/ML 10 ML VIAL SQ SCH (06:38)
[2020-09-01] MEDS: D5NS 1,000 ML IV SCH ×2 (07:02→17:59)
[2020-09-01 08:00] VITALS: BP_SYST 164
[2020-09-01] MEDS: SULFACETAMIDE SODIUM 10% EYE DROPS 15 ML OP SCH ×5 (08:00→21:12)
[2020-09-01 10:23] LABS: BASOPHILS % (AUTO) 0.6 % (0.0-2.0); EOSINOPHILS # (AUTO) 0.4 K/uL (0.0-0.4); EOSINOPHILS % (AUTO) 5.7 % (0.0-4.0); HEMATOCRIT 23.4 % (36-54); HEMOGLOBIN 7.8 g/dL (14.0-18.0); LYMPHOCYTES % (AUTO) 14.5 % (20.5-51.5); MEAN CORPUSCULAR HEMOGLOBIN 28 pg (27-31); MEAN CORPUSCULAR HGB CONC 33 % (32-36); MEAN CORPUSCULAR VOLUME 84 fL (79.0-98.0); MONOCYTES # (AUTO) 0.4 K/uL (0.0-1.0); MONOCYTES % (AUTO) 5.6 % (1.7-9.3); NEUTROPHILS % (AUTO) 73.6 % (40.0-70.0); PLATELET COUNT (AUTO) 355 K/uL (130-430); RED BLOOD CELL COUNT(AUTO) 2.77 MIL/uL (4.2-6.2); RED CELL DISTRIBUTION WIDTH 14.5 % (9.0-15.0); WHITE BLOOD COUNT (AUTO) 6.9 K/uL (4.8-10.8)
[2020-09-01 10:46] LABS: ANION GAP 12 (5-15); CALCIUM 8.4 mg/dL (8.4-11.0); CHLORIDE 100 mmol/L (98-107); CREATININE 7.25 mg/dL (0.55-1.30); GLUCOSE 142 mg/dL (70-99); PHOSPHORUS 7.1 mg/dL (2.7-4.5); POTASSIUM 3.7 mmol/L (3.5-5.1); SODIUM SERUM 138 mmol/L (136-145); UREA NITROGEN, BLOOD 62 mg/dL (8-21)
[2020-09-01] MEDS: SENNA 8.8 MG/5 ML UDC GT SCH (11:00)
[2020-09-01 11:16] LABS: ERYTHROCYTE SEDIMENTATION RATE 123 MM/HR (0-15)
[2020-09-01 11:40] LABS: TOTAL IRON BIND. CAPACITY 160 ug/dL (250-450)
[2020-09-01 11:46] LABS: C-REACTIVE PROTEIN QUANT 20.6 mg/dL (0-0.5)
[2020-09-01] MEDS: POLYETHYLENE GLYCOL 3350, 17 GM/ POWD.PACK PO SCH (12:03)
[2020-09-01] MEDS: DOCUSATE SODIUM 100 MG/10 ML UDC PO SCH ×2 (12:03→21:14)
[2020-09-01] MEDS: PANTOPRAZOLE SODIUM 40 MG/VIAL (PROTONIX) IVP SCH ×2 (12:04→21:12)
[2020-09-01] MEDS: glipiZIDE XL 5 MG TAB ( GLUCOTROL XL) PO SCH (12:04)
[2020-09-01] MEDS: ATORVASTATIN 10 MG TABLET PO SCH (12:05)
[2020-09-01] MEDS: FERROUS SULFATE 325 MG TABLET.DR PO SCH (12:06)
[2020-09-01] MEDS ORDERED: HEPARIN SODIUM,PORCINE 5,000 UNITS/ML VIAL ONE (12:45)
[2020-09-01] MEDS: HEPARIN SODIUM,PORCINE 5,000 UNITS/ML VIAL SUBCUT SCH ×2 (12:52→21:52)
[2020-09-01] MEDS: hydrALAZINE HCL 25 MG TABLET PO SCH ×2 (12:55→21:13)
[2020-09-01] MEDS: METOPROLOL SUCCINATE 50 MG TAB.SR.24H (TOPROL XL) PO SCH (12:56)
[2020-09-01] MEDS: OXYBUTYNIN CHLORIDE 5 MG TABLET PO SCH ×2 (16:00→21:00)
[2020-09-01] MEDS: calcitrioL 0.25 MCG CAPSULE PO SCH (16:00)
[2020-09-01] MEDS: CEFEPIME 1 GM in D5W 50 ML IV SCH (17:53)
[2020-09-01] MEDS: DAPTOmycin 600 MG in NS 50 ML IV SCH (17:54)
[2020-09-01] MEDS: INSULIN REGULAR, HUMAN 100 UNITS/ML, 10 ML VIAL (humuLIN R) SUBCUT PRN (17:58)
[2020-09-01 20:30] VITALS: BP_SYST 183
[2020-09-01] MEDS: traZODone HCL 50 MG TABLET (DESYREL) PO SCH (21:14)
[2020-09-01] MEDS: TERAZOSIN HCL 1 MG CAPSULE (HYTRIN) PO SCH (21:46)
[2020-09-02 00:13] VITALS: BP_SYST 131; BP_SYST 162
[2020-09-02] MEDS: INSULIN REGULAR, HUMAN 100 UNITS/ML, 10 ML VIAL (humuLIN R) SUBCUT PRN ×2 (00:34→17:58)
[2020-09-02] MEDS: SULFACETAMIDE SODIUM 10% EYE DROPS 15 ML OP SCH ×5 (01:52→20:28)
[2020-09-02] MEDS: IPRATROPIUM BROM 0.5 MG/2.5 ML VIAL.NEB (ATROVENT) INH SCH ×5 (03:00→19:50)
[2020-09-02] MEDS: ALBUTEROL SULFATE 0.083% 2.5 MG/3 ML VIAL.NEB INH SCH ×5 (03:00→19:50)
[2020-09-02] MEDS: D5NS 1,000 ML IV SCH ×2 (04:36→13:00)
[2020-09-02 07:06] LABS: FERRITIN 304 ng/mL (30-400); FOLATE (FOLIC ACID) 4.9 ng/mL (>3.0)
[2020-09-02] MEDS: INSULIN GLARGINE 100 UNITS/ML 10 ML VIAL SQ SCH (07:50)
[2020-09-02 08:53] LABS: BASOPHILS % (AUTO) 0.6 % (0.0-2.0); EOSINOPHILS # (AUTO) 0.5 K/uL (0.0-0.4); EOSINOPHILS % (AUTO) 7.1 % (0.0-4.0); HEMATOCRIT 20.7 % (36-54); HEMOGLOBIN 7.1 g/dL (14.0-18.0); LYMPHOCYTES # (AUTO) 1.2 K/uL (1.0-5.5); LYMPHOCYTES % (AUTO) 16.8 % (20.5-51.5); MEAN CORPUSCULAR HEMOGLOBIN 29 pg (27-31); MEAN CORPUSCULAR HGB CONC 34 % (32-36); MEAN CORPUSCULAR VOLUME 85 fL (79.0-98.0); MONOCYTES # (AUTO) 0.6 K/uL (0.0-1.0); MONOCYTES % (AUTO) 7.8 % (1.7-9.3); NEUTROPHILS # (AUTO) 4.9 K/uL (1.8-7.7); NEUTROPHILS % (AUTO) 67.7 % (40.0-70.0); PLATELET COUNT (AUTO) 322 K/uL (130-430); RED BLOOD CELL COUNT(AUTO) 2.44 MIL/uL (4.2-6.2); RED CELL DISTRIBUTION WIDTH 14.2 % (9.0-15.0); WHITE BLOOD COUNT (AUTO) 7.2 K/uL (4.8-10.8)
[2020-09-02] MEDS: PANTOPRAZOLE SODIUM 40 MG/VIAL (PROTONIX) IVP SCH ×2 (09:00→20:48)
[2020-09-02] MEDS: glipiZIDE XL 5 MG TAB ( GLUCOTROL XL) PO SCH (09:00)
[2020-09-02] MEDS: METOPROLOL SUCCINATE 50 MG TAB.SR.24H (TOPROL XL) PO SCH (09:00)
[2020-09-02] MEDS: SENNA 8.8 MG/5 ML UDC GT SCH (09:00)
[2020-09-02] MEDS: OXYBUTYNIN CHLORIDE 5 MG TABLET PO SCH ×2 (09:00→20:49)
[2020-09-02] MEDS: POLYETHYLENE GLYCOL 3350, 17 GM/ POWD.PACK PO SCH (09:00)
[2020-09-02] MEDS: FERROUS SULFATE 325 MG TABLET.DR PO SCH (09:00)
[2020-09-02] MEDS: calcitrioL 0.25 MCG CAPSULE PO SCH (09:00)
[2020-09-02] MEDS: hydrALAZINE HCL 25 MG TABLET PO SCH ×2 (09:00→20:44)
[2020-09-02] MEDS: ATORVASTATIN 10 MG TABLET PO SCH (09:00)
[2020-09-02] MEDS: DOCUSATE SODIUM 100 MG/10 ML UDC PO SCH ×2 (09:00→20:32)
[2020-09-02 09:40] VITALS: BP_SYST 147
[2020-09-02 10:03] LABS: ANION GAP 12 (5-15); CHLORIDE 104 mmol/L (98-107); CREATININE 5.77 mg/dL (0.55-1.30); GLUCOSE 122 mg/dL (70-99); POTASSIUM 3.7 mmol/L (3.5-5.1); SODIUM SERUM 141 mmol/L (136-145); UREA NITROGEN, BLOOD 39 mg/dL (8-21)
[2020-09-02] MEDS: HEPARIN SODIUM,PORCINE 5,000 UNITS/ML VIAL SUBCUT SCH ×2 (10:08→21:01)
[2020-09-02 12:04] LABS: C-REACTIVE PROTEIN QUANT 8.7 mg/dL (0-0.5)
[2020-09-02] MEDS ORDERED: FLUTICASONE PROPIONATE 50 mCg/SPRAY 16 GM NS ONE (12:15)
[2020-09-02] MEDS: CEFEPIME 1 GM in D5W 50 ML IV SCH (17:37)
[2020-09-02] MEDS: INSULIN REGULAR, HUMAN 100 UNITS in NS 99 ML IV PRN ×2 (17:43)
[2020-09-02 19:18] LABS: ERYTHROCYTE SEDIMENTATION RATE 80 MM/HR (0-15)
[2020-09-02 20:15] VITALS: BP_SYST 185
[2020-09-02] MEDS: traZODone HCL 50 MG TABLET (DESYREL) PO SCH (20:27)
[2020-09-02] MEDS: FLUTICASONE PROPIONATE 50 mCg/SPRAY 16 GM NS SCH (20:28)
[2020-09-02] MEDS: TERAZOSIN HCL 1 MG CAPSULE (HYTRIN) PO SCH (20:49)
[2020-09-03] MEDS: D5NS 1,000 ML IV SCH ×3 (00:02→21:23)
[2020-09-03] MEDS: INSULIN REGULAR, HUMAN 100 UNITS/ML, 10 ML VIAL (humuLIN R) SUBCUT PRN ×2 (00:09→06:28)
[2020-09-03] MEDS: SULFACETAMIDE SODIUM 10% EYE DROPS 15 ML OP SCH ×5 (00:15→21:22)
[2020-09-03] MEDS: ALBUTEROL SULFATE 0.083% 2.5 MG/3 ML VIAL.NEB INH SCH ×7 (00:22→23:00)
[2020-09-03] MEDS: IPRATROPIUM BROM 0.5 MG/2.5 ML VIAL.NEB (ATROVENT) INH SCH ×7 (00:22→23:00)
[2020-09-03 01:00] VITALS: BP_SYST 175
[2020-09-03] MEDS: INSULIN GLARGINE 100 UNITS/ML 10 ML VIAL SQ SCH (07:41)
[2020-09-03 08:00] VITALS: BP_SYST 174
[2020-09-03 08:35] LABS: BASOPHILS # (AUTO) 0.1 K/uL (0.0-0.2); EOSINOPHILS # (AUTO) 0.5 K/uL (0.0-0.4); EOSINOPHILS % (AUTO) 6.1 % (0.0-4.0); HEMOGLOBIN 7.4 g/dL (14.0-18.0); LYMPHOCYTES # (AUTO) 1.2 K/uL (1.0-5.5); LYMPHOCYTES % (AUTO) 14.6 % (20.5-51.5); MEAN CORPUSCULAR HEMOGLOBIN 29 pg (27-31); MEAN CORPUSCULAR HGB CONC 34 % (32-36); MEAN CORPUSCULAR VOLUME 84 fL (79.0-98.0); MONOCYTES # (AUTO) 0.5 K/uL (0.0-1.0); MONOCYTES % (AUTO) 6.1 % (1.7-9.3); NEUTROPHILS # (AUTO) 6.2 K/uL (1.8-7.7); NEUTROPHILS % (AUTO) 72.2 % (40.0-70.0); PLATELET COUNT (AUTO) 364 K/uL (130-430); RED BLOOD CELL COUNT(AUTO) 2.61 MIL/uL (4.2-6.2); RED CELL DISTRIBUTION WIDTH 14.3 % (9.0-15.0); WHITE BLOOD COUNT (AUTO) 8.5 K/uL (4.8-10.8)
[2020-09-03 08:46] LABS: ALANINE AMINOTRANSFERASE 19 U/L (12-78); ANION GAP 14 (5-15); ASPARTATE AMINOTRANSFERASE 24 U/L (10-37); CALCIUM 8.4 mg/dL (8.4-11.0); CHLORIDE 105 mmol/L (98-107); CREATININE 7.16 mg/dL (0.55-1.30); GLUCOSE 155 mg/dL (70-99); PHOSPHORUS 5.3 mg/dL (2.7-4.5); POTASSIUM 3.9 mmol/L (3.5-5.1); SODIUM SERUM 142 mmol/L (136-145); TOTAL BILIRUBIN 0.2 mg/dL (0.0-1.0); UREA NITROGEN, BLOOD 46 mg/dL (8-21)
[2020-09-03] MEDS: POLYETHYLENE GLYCOL 3350, 17 GM/ POWD.PACK PO SCH (09:00)
[2020-09-03] MEDS: glipiZIDE XL 5 MG TAB ( GLUCOTROL XL) PO SCH (10:41)
[2020-09-03] MEDS: METOPROLOL SUCCINATE 50 MG TAB.SR.24H (TOPROL XL) PO SCH (10:43)
[2020-09-03] MEDS: hydrALAZINE HCL 25 MG TABLET PO SCH ×2 (10:43→21:22)
[2020-09-03] MEDS: DOCUSATE SODIUM 100 MG/10 ML UDC PO SCH ×2 (10:44→21:23)
[2020-09-03] MEDS: ATORVASTATIN 10 MG TABLET PO SCH (10:44)
[2020-09-03] MEDS ORDERED: OXYBUTYNIN CHLORIDE 5 MG TABLET PO ONE (10:45)
[2020-09-03] MEDS: FLUTICASONE PROPIONATE 50 mCg/SPRAY 16 GM NS SCH ×2 (10:46→21:23)
[2020-09-03] MEDS: FERROUS SULFATE 325 MG TABLET.DR PO SCH (10:46)
[2020-09-03] MEDS: PANTOPRAZOLE SODIUM 40 MG/VIAL (PROTONIX) IVP SCH ×2 (10:46→21:21)
[2020-09-03] MEDS: SENNA 8.8 MG/5 ML UDC GT SCH (10:47)
[2020-09-03] MEDS: calcitrioL 0.25 MCG CAPSULE PO SCH (10:47)
[2020-09-03] MEDS: HEPARIN SODIUM,PORCINE 5,000 UNITS/ML VIAL SUBCUT SCH ×2 (10:49→21:28)
[2020-09-03 12:17] VITALS: BP_SYST 193
[2020-09-03 12:24] LABS: C-REACTIVE PROTEIN QUANT 7.2 mg/dL (0-0.5)
[2020-09-03] MEDS ORDERED: HEPARIN SODIUM,PORCINE 5,000 UNITS/ML VIAL IVP ONE (13:45)
[2020-09-03 16:18] VITALS: BP_SYST 148
[2020-09-03] MEDS: CEFEPIME 1 GM in D5W 50 ML IV SCH (17:32)
[2020-09-03] MEDS: DAPTOmycin 600 MG in NS 50 ML IV SCH (18:35)
[2020-09-03 20:00] VITALS: BP_SYST 158
[2020-09-03] MEDS: OXYBUTYNIN CHLORIDE 5 MG TABLET PO SCH (21:21)
[2020-09-03] MEDS: traZODone HCL 50 MG TABLET (DESYREL) PO SCH (21:22)
[2020-09-03] MEDS: TERAZOSIN HCL 1 MG CAPSULE (HYTRIN) PO SCH (21:28)
[2020-09-04 00:04] LABS: ERYTHROCYTE SEDIMENTATION RATE 90 MM/HR (0-15)
[2020-09-04] MEDS: INSULIN REGULAR, HUMAN 100 UNITS/ML, 10 ML VIAL (humuLIN R) SUBCUT PRN ×2 (00:11→05:52)
[2020-09-04 01:37] VITALS: BP_SYST 174
[2020-09-04] MEDS: IPRATROPIUM BROM 0.5 MG/2.5 ML VIAL.NEB (ATROVENT) INH SCH ×6 (03:15→23:00)
[2020-09-04] MEDS: ALBUTEROL SULFATE 0.083% 2.5 MG/3 ML VIAL.NEB INH SCH ×6 (03:15→23:00)
[2020-09-04] MEDS: D5NS 1,000 ML IV SCH ×2 (05:47→18:07)
[2020-09-04] MEDS: INSULIN GLARGINE 100 UNITS/ML 10 ML VIAL SQ SCH (06:37)
[2020-09-04 07:45] LABS: BASOPHILS # (AUTO) 0.1 K/uL (0.0-0.2); EOSINOPHILS # (AUTO) 0.5 K/uL (0.0-0.4); EOSINOPHILS % (AUTO) 5.8 % (0.0-4.0); HEMOGLOBIN 7.2 g/dL (14.0-18.0); LYMPHOCYTES # (AUTO) 1.1 K/uL (1.0-5.5); LYMPHOCYTES % (AUTO) 13.7 % (20.5-51.5); MEAN CORPUSCULAR HEMOGLOBIN 29 pg (27-31); MEAN CORPUSCULAR HGB CONC 34 % (32-36); MEAN CORPUSCULAR VOLUME 84 fL (79.0-98.0); MONOCYTES # (AUTO) 0.6 K/uL (0.0-1.0); MONOCYTES % (AUTO) 7.3 % (1.7-9.3); NEUTROPHILS # (AUTO) 6.1 K/uL (1.8-7.7); NEUTROPHILS % (AUTO) 72.2 % (40.0-70.0); PLATELET COUNT (AUTO) 345 K/uL (130-430); RED BLOOD CELL COUNT(AUTO) 2.51 MIL/uL (4.2-6.2); RED CELL DISTRIBUTION WIDTH 14.5 % (9.0-15.0); WHITE BLOOD COUNT (AUTO) 8.4 K/uL (4.8-10.8)
[2020-09-04 07:55] LABS: ANION GAP 11 (5-15); CALCIUM 8.3 mg/dL (8.4-11.0); CHLORIDE 106 mmol/L (98-107); CREATININE 5.42 mg/dL (0.55-1.30); GLUCOSE 156 mg/dL (70-99); PHOSPHORUS 4.6 mg/dL (2.7-4.5); POTASSIUM 3.5 mmol/L (3.5-5.1); SODIUM SERUM 143 mmol/L (136-145); UREA NITROGEN, BLOOD 35 mg/dL (8-21)
[2020-09-04 08:00] VITALS: BP_SYST 162
[2020-09-04 09:21] LABS: HEMATOCRIT 21.1 % (36-54)
[2020-09-04 10:46] LABS: C-REACTIVE PROTEIN QUANT 1.6 mg/dL (0-0.5)
[2020-09-04] MEDS: PANTOPRAZOLE SODIUM 40 MG/VIAL (PROTONIX) IVP SCH ×2 (10:46→22:23)
[2020-09-04] MEDS: POLYETHYLENE GLYCOL 3350, 17 GM/ POWD.PACK PO SCH (10:47)
[2020-09-04] MEDS: DOCUSATE SODIUM 100 MG/10 ML UDC PO SCH ×2 (10:47→22:28)
[2020-09-04] MEDS: hydrALAZINE HCL 25 MG TABLET PO SCH ×2 (10:48→22:27)
[2020-09-04] MEDS: METOPROLOL SUCCINATE 50 MG TAB.SR.24H (TOPROL XL) PO SCH (10:48)
[2020-09-04] MEDS: glipiZIDE XL 5 MG TAB ( GLUCOTROL XL) PO SCH (10:48)
[2020-09-04] MEDS: ATORVASTATIN 10 MG TABLET PO SCH (10:49)
[2020-09-04] MEDS: FERROUS SULFATE 325 MG TABLET.DR PO SCH (10:49)
[2020-09-04] MEDS: OXYBUTYNIN CHLORIDE 5 MG TABLET PO SCH ×2 (10:49→22:28)
[2020-09-04] MEDS: FLUTICASONE PROPIONATE 50 mCg/SPRAY 16 GM NS SCH ×2 (10:50→22:26)
[2020-09-04] MEDS: HEPARIN SODIUM,PORCINE 5,000 UNITS/ML VIAL SUBCUT SCH ×2 (10:57→22:35)
[2020-09-04] MEDS: calcitrioL 0.25 MCG CAPSULE PO SCH (10:57)
[2020-09-04] MEDS: SENNA 8.8 MG/5 ML UDC GT SCH (10:57)
[2020-09-04] MEDS: SULFACETAMIDE SODIUM 10% EYE DROPS 15 ML OP SCH ×5 (10:58→20:00)
[2020-09-04 11:58] VITALS: BP_SYST 148
[2020-09-04 13:28] LABS: ERYTHROCYTE SEDIMENTATION RATE 107 MM/HR (0-15)
[2020-09-04 16:28] VITALS: BP_SYST 190
[2020-09-04] MEDS ORDERED: PRO40 PO (17:45)
[2020-09-04] MEDS ORDERED: DOXY100C PO (17:45)
[2020-09-04] MEDS: DEXTROSE 50% JECT 50 ML DISP.SYRIN IVP PRN (18:09)
[2020-09-04 20:00] VITALS: BP_SYST 193
[2020-09-04] MEDS: traZODone HCL 50 MG TABLET (DESYREL) PO SCH (22:28)
[2020-09-04] MEDS: TERAZOSIN HCL 1 MG CAPSULE (HYTRIN) PO SCH (22:58)
[2020-09-05] VITALS: BP_SYST 167
[2020-09-05] MEDS: cloNIDine HCL 0.1 MG TABLET PO SCH ×2 (01:48→06:59)
[2020-09-05] MEDS: D5NS 1,000 ML IV SCH (01:59)
[2020-09-05] MEDS: ALBUTEROL SULFATE 0.083% 2.5 MG/3 ML VIAL.NEB INH SCH ×6 (03:00→23:00)
[2020-09-05] MEDS: IPRATROPIUM BROM 0.5 MG/2.5 ML VIAL.NEB (ATROVENT) INH SCH ×6 (03:00→23:00)
[2020-09-05] MEDS: INSULIN GLARGINE 100 UNITS/ML 10 ML VIAL SQ SCH (07:00)
[2020-09-05 08:00] VITALS: BP_SYST 157
[2020-09-05] MEDS: SENNA 8.8 MG/5 ML UDC GT SCH (09:00)
[2020-09-05] MEDS: POLYETHYLENE GLYCOL 3350, 17 GM/ POWD.PACK PO SCH (09:00)
[2020-09-05] MEDS: DOCUSATE SODIUM 100 MG/10 ML UDC PO SCH ×2 (09:00→23:21)
[2020-09-05] MEDS: SULFACETAMIDE SODIUM 10% EYE DROPS 15 ML OP SCH ×5 (09:22→23:33)
[2020-09-05] MEDS: PANTOPRAZOLE SODIUM 40 MG/VIAL (PROTONIX) IVP SCH ×2 (09:25→23:24)
[2020-09-05] MEDS: hydrALAZINE HCL 25 MG TABLET PO SCH ×2 (09:26→23:25)
[2020-09-05] MEDS: ATORVASTATIN 10 MG TABLET PO SCH (09:26)
[2020-09-05] MEDS: glipiZIDE XL 5 MG TAB ( GLUCOTROL XL) PO SCH (09:28)
[2020-09-05] MEDS: METOPROLOL SUCCINATE 50 MG TAB.SR.24H (TOPROL XL) PO SCH (09:28)
[2020-09-05] MEDS: OXYBUTYNIN CHLORIDE 5 MG TABLET PO SCH ×2 (09:28→23:25)
[2020-09-05] MEDS: HEPARIN SODIUM,PORCINE 5,000 UNITS/ML VIAL SUBCUT SCH ×2 (09:39→23:27)
[2020-09-05] MEDS: FERROUS SULFATE 325 MG TABLET.DR PO SCH (09:47)
[2020-09-05] MEDS: FLUTICASONE PROPIONATE 50 mCg/SPRAY 16 GM NS SCH ×2 (09:47→23:34)
[2020-09-05] MEDS: calcitrioL 0.25 MCG CAPSULE PO SCH (09:47)
[2020-09-05 16:00] VITALS: BP_SYST 139
[2020-09-05 20:00] VITALS: BP_SYST 160
[2020-09-05] MEDS: DAPTOmycin 600 MG in NS 50 ML IV SCH (23:23)
[2020-09-05] MEDS: traZODone HCL 50 MG TABLET (DESYREL) PO SCH (23:25)
[2020-09-05] MEDS: TERAZOSIN HCL 1 MG CAPSULE (HYTRIN) PO SCH (23:34)
[2020-09-06] MEDS: cloNIDine HCL 0.1 MG TABLET PO SCH ×4 (00:02→22:22)
[2020-09-06 02:44] VITALS: BP_SYST 153
[2020-09-06] MEDS: INSULIN GLARGINE 100 UNITS/ML 10 ML VIAL SQ SCH (07:00)
[2020-09-06] MEDS: ALBUTEROL SULFATE 0.083% 2.5 MG/3 ML VIAL.NEB INH SCH ×5 (07:55→23:00)
[2020-09-06] MEDS: IPRATROPIUM BROM 0.5 MG/2.5 ML VIAL.NEB (ATROVENT) INH SCH ×5 (07:55→23:00)
[2020-09-06 08:00] VITALS: BP_SYST 153
[2020-09-06 08:29] LABS: BASOPHILS # (AUTO) 0.1 K/uL (0.0-0.2); BASOPHILS % (AUTO) 1.3 % (0.0-2.0); EOSINOPHILS # (AUTO) 0.4 K/uL (0.0-0.4); EOSINOPHILS % (AUTO) 5.7 % (0.0-4.0); LYMPHOCYTES % (AUTO) 14.7 % (20.5-51.5); MEAN CORPUSCULAR HEMOGLOBIN 29 pg (27-31); MEAN CORPUSCULAR HGB CONC 34 % (32-36); MEAN CORPUSCULAR VOLUME 85 fL (79.0-98.0); MONOCYTES # (AUTO) 0.6 K/uL (0.0-1.0); MONOCYTES % (AUTO) 9.7 % (1.7-9.3); NEUTROPHILS # (AUTO) 4.6 K/uL (1.8-7.7); NEUTROPHILS % (AUTO) 68.6 % (40.0-70.0); PLATELET COUNT (AUTO) 328 K/uL (130-430); RED BLOOD CELL COUNT(AUTO) 2.35 MIL/uL (4.2-6.2); RED CELL DISTRIBUTION WIDTH 14.4 % (9.0-15.0); WHITE BLOOD COUNT (AUTO) 6.7 K/uL (4.8-10.8)
[2020-09-06 08:53] LABS: ANION GAP 10 (5-15); CALCIUM 8.5 mg/dL (8.4-11.0); CHLORIDE 105 mmol/L (98-107); CREATININE 4.87 mg/dL (0.55-1.30); GLUCOSE 74 mg/dL (70-99); PHOSPHORUS 4.1 mg/dL (2.7-4.5); POTASSIUM 3.8 mmol/L (3.5-5.1); SODIUM SERUM 142 mmol/L (136-145); UREA NITROGEN, BLOOD 28 mg/dL (8-21)
[2020-09-06] MEDS: PANTOPRAZOLE SODIUM 40 MG/VIAL (PROTONIX) IVP SCH ×2 (08:55→22:10)
[2020-09-06] MEDS: DOCUSATE SODIUM 100 MG/10 ML UDC PO SCH ×2 (08:56→22:10)
[2020-09-06] MEDS: SULFACETAMIDE SODIUM 10% EYE DROPS 15 ML OP SCH ×5 (08:56→22:10)
[2020-09-06] MEDS: POLYETHYLENE GLYCOL 3350, 17 GM/ POWD.PACK PO SCH (08:57)
[2020-09-06] MEDS: FLUTICASONE PROPIONATE 50 mCg/SPRAY 16 GM NS SCH ×2 (08:57→22:10)
[2020-09-06] MEDS: ATORVASTATIN 10 MG TABLET PO SCH (08:58)
[2020-09-06] MEDS: OXYBUTYNIN CHLORIDE 5 MG TABLET PO SCH ×2 (08:58→22:11)
[2020-09-06] MEDS: FERROUS SULFATE 325 MG TABLET.DR PO SCH (08:58)
[2020-09-06] MEDS: METOPROLOL SUCCINATE 50 MG TAB.SR.24H (TOPROL XL) PO SCH (08:59)
[2020-09-06] MEDS: glipiZIDE XL 5 MG TAB ( GLUCOTROL XL) PO SCH (08:59)
[2020-09-06] MEDS: hydrALAZINE HCL 25 MG TABLET PO SCH ×2 (09:00→22:22)
[2020-09-06] MEDS: HEPARIN SODIUM,PORCINE 5,000 UNITS/ML VIAL SUBCUT SCH (09:01)
[2020-09-06 09:09] LABS: HEMATOCRIT 19.9 % (36-54); HEMOGLOBIN 6.8 g/dL (14.0-18.0)
[2020-09-06 09:18] LABS: ERYTHROCYTE SEDIMENTATION RATE 122 MM/HR (0-15)
[2020-09-06] MEDS: calcitrioL 0.25 MCG CAPSULE PO SCH (09:59)
[2020-09-06] MEDS: SENNA 8.8 MG/5 ML UDC GT SCH (10:00)
[2020-09-06 10:06] LABS: C-REACTIVE PROTEIN QUANT 6.6 mg/dL (0-0.5)
[2020-09-06] MEDS ORDERED: *HEPARIN PER PHARMACY XX ONE (15:30)
[2020-09-06 16:00] VITALS: BP_SYST 163
[2020-09-06 20:55] VITALS: BP_SYST 188
[2020-09-06] MEDS: traZODone HCL 50 MG TABLET (DESYREL) PO SCH (22:10)
[2020-09-06] MEDS: APIXABAN 2.5 MG TABLET PO SCH (22:11)
[2020-09-06] MEDS: TERAZOSIN HCL 1 MG CAPSULE (HYTRIN) PO SCH (22:22)
[2020-09-06] MEDS: ACETAMINOPHEN 650 MG/20.3 ML UDC GT PRN (22:25)
[2020-09-06] MEDS: ALBUTEROL MDI INHALATION 8 GM INH INH SCH (23:00)
[2020-09-07] VITALS: BP_SYST 155
[2020-09-07] MEDS: ALBUTEROL MDI INHALATION 8 GM INH INH SCH ×3 (03:00→23:45)
[2020-09-07] MEDS: cloNIDine HCL 0.1 MG TABLET PO SCH ×2 (05:25→14:57)
[2020-09-07] MEDS: INSULIN GLARGINE 100 UNITS/ML 10 ML VIAL SQ SCH (05:46)
[2020-09-07 07:06] LABS: HEPATITIS A AB, IgM Negative (Negative); HEPATITIS B CORE AB, IgM Negative (Negative); HEPATITIS B SURFACE AG Negative (Negative)
[2020-09-07 08:00] VITALS: BP_SYST 155
[2020-09-07 09:33] LABS: BASOPHILS % (AUTO) 0.5 % (0.0-2.0); EOSINOPHILS # (AUTO) 0.2 K/uL (0.0-0.4); EOSINOPHILS % (AUTO) 4.2 % (0.0-4.0); HEMOGLOBIN 7.8 g/dL (14.0-18.0); LYMPHOCYTES # (AUTO) 0.9 K/uL (1.0-5.5); LYMPHOCYTES % (AUTO) 15.1 % (20.5-51.5); MEAN CORPUSCULAR HEMOGLOBIN 29 pg (27-31); MEAN CORPUSCULAR HGB CONC 34 % (32-36); MEAN CORPUSCULAR VOLUME 86 fL (79.0-98.0); MONOCYTES # (AUTO) 0.8 K/uL (0.0-1.0); MONOCYTES % (AUTO) 12.9 % (1.7-9.3); NEUTROPHILS % (AUTO) 67.3 % (40.0-70.0); PLATELET COUNT (AUTO) 299 K/uL (130-430); RED BLOOD CELL COUNT(AUTO) 2.67 MIL/uL (4.2-6.2); RED CELL DISTRIBUTION WIDTH 14.8 % (9.0-15.0); WHITE BLOOD COUNT (AUTO) 5.9 K/uL (4.8-10.8)
[2020-09-07 09:39] LABS: ALANINE AMINOTRANSFERASE 20 U/L (12-78); ANION GAP 13 (5-15); ASPARTATE AMINOTRANSFERASE 27 U/L (10-37); CALCIUM 8.6 mg/dL (8.4-11.0); CHLORIDE 103 mmol/L (98-107); CREATININE 6.24 mg/dL (0.55-1.30); GLUCOSE 92 mg/dL (70-99); PHOSPHORUS 5.6 mg/dL (2.7-4.5); POTASSIUM 4.3 mmol/L (3.5-5.1); SODIUM SERUM 139 mmol/L (136-145); TOTAL BILIRUBIN 0.3 mg/dL (0.0-1.0); UREA NITROGEN, BLOOD 40 mg/dL (8-21)
[2020-09-07] MEDS: APIXABAN 2.5 MG TABLET PO SCH ×2 (10:18)
[2020-09-07 10:19] LABS: ERYTHROCYTE SEDIMENTATION RATE 106 MM/HR (0-15)
[2020-09-07 10:20] LABS: C-REACTIVE PROTEIN QUANT 7.5 mg/dL (0-0.5)
[2020-09-07] MEDS: SULFACETAMIDE SODIUM 10% EYE DROPS 15 ML OP SCH ×4 (10:20→17:08)
[2020-09-07] MEDS: hydrALAZINE HCL 25 MG TABLET PO SCH (10:25)
[2020-09-07] MEDS: FLUTICASONE PROPIONATE 50 mCg/SPRAY 16 GM NS SCH ×2 (10:25→21:00)
[2020-09-07] MEDS: OXYBUTYNIN CHLORIDE 5 MG TABLET PO SCH (10:26)
[2020-09-07] MEDS: SENNA 8.8 MG/5 ML UDC GT SCH (10:26)
[2020-09-07] MEDS: DOCUSATE SODIUM 100 MG/10 ML UDC PO SCH ×2 (10:26→21:00)
[2020-09-07] MEDS: PANTOPRAZOLE SODIUM 40 MG/VIAL (PROTONIX) IVP SCH (10:26)
[2020-09-07] MEDS: ATORVASTATIN 10 MG TABLET PO SCH (10:27)
[2020-09-07] MEDS: calcitrioL 0.25 MCG CAPSULE PO SCH (10:27)
[2020-09-07] MEDS: METOPROLOL SUCCINATE 50 MG TAB.SR.24H (TOPROL XL) PO SCH (10:27)
[2020-09-07] MEDS: glipiZIDE XL 5 MG TAB ( GLUCOTROL XL) PO SCH (10:27)
[2020-09-07] MEDS: POLYETHYLENE GLYCOL 3350, 17 GM/ POWD.PACK PO SCH (10:27)
[2020-09-07] MEDS: FERROUS SULFATE 325 MG TABLET.DR PO SCH (10:27)
[2020-09-07 12:00] VITALS: BP_SYST 193
[2020-09-07 20:00] VITALS: BP_SYST 152
[2020-09-07] MEDS ORDERED: HEPARIN SODIUM,PORCINE 5,000 UNITS/ML VIAL ONE (20:46)
[2020-09-08] VITALS: BP_SYST 191
[2020-09-08] MEDS: ALBUTEROL MDI INHALATION 8 GM INH INH SCH ×3 (04:09→23:23)
[2020-09-08] MEDS: cloNIDine HCL 0.1 MG TABLET PO SCH ×4 (05:20→18:37)
[2020-09-08] MEDS: INSULIN GLARGINE 100 UNITS/ML 10 ML VIAL SQ SCH (05:36)
[2020-09-08 06:40] LABS: BASOPHILS # (AUTO) 0.1 K/uL (0.0-0.2); BASOPHILS % (AUTO) 1.9 % (0.0-2.0); EOSINOPHILS # (AUTO) 0.2 K/uL (0.0-0.4); EOSINOPHILS % (AUTO) 3.9 % (0.0-4.0); HEMATOCRIT 24.5 % (36-54); HEMOGLOBIN 8.4 g/dL (14.0-18.0); LYMPHOCYTES # (AUTO) 0.9 K/uL (1.0-5.5); LYMPHOCYTES % (AUTO) 17.1 % (20.5-51.5); MEAN CORPUSCULAR HEMOGLOBIN 30 pg (27-31); MEAN CORPUSCULAR HGB CONC 34 % (32-36); MEAN CORPUSCULAR VOLUME 86 fL (79.0-98.0); MONOCYTES # (AUTO) 0.8 K/uL (0.0-1.0); MONOCYTES % (AUTO) 14.3 % (1.7-9.3); NEUTROPHILS # (AUTO) 3.4 K/uL (1.8-7.7); NEUTROPHILS % (AUTO) 62.8 % (40.0-70.0); PLATELET COUNT (AUTO) 288 K/uL (130-430); RED BLOOD CELL COUNT(AUTO) 2.85 MIL/uL (4.2-6.2); RED CELL DISTRIBUTION WIDTH 14.7 % (9.0-15.0); WHITE BLOOD COUNT (AUTO) 5.3 K/uL (4.8-10.8)
[2020-09-08 06:53] LABS: ANION GAP 9 (5-15); CALCIUM 8.8 mg/dL (8.4-11.0); CHLORIDE 103 mmol/L (98-107); CREATININE 5.48 mg/dL (0.55-1.30); GLUCOSE 105 mg/dL (70-99); PHOSPHORUS 4.6 mg/dL (2.7-4.5); POTASSIUM 4.1 mmol/L (3.5-5.1); SODIUM SERUM 140 mmol/L (136-145); UREA NITROGEN, BLOOD 36 mg/dL (8-21)
[2020-09-08] MEDS: SULFACETAMIDE SODIUM 10% EYE DROPS 15 ML OP SCH ×6 (08:00→20:00)
[2020-09-08] MEDS: POLYETHYLENE GLYCOL 3350, 17 GM/ POWD.PACK PO SCH (09:00)
[2020-09-08] MEDS: FLUTICASONE PROPIONATE 50 mCg/SPRAY 16 GM NS SCH ×2 (09:00→21:00)
[2020-09-08 10:20] VITALS: BP_SYST 175
[2020-09-08] MEDS: SENNA 8.8 MG/5 ML UDC GT SCH (10:26)
[2020-09-08] MEDS: DOCUSATE SODIUM 100 MG/10 ML UDC PO SCH ×2 (10:27→21:00)
[2020-09-08] MEDS: hydrALAZINE HCL 25 MG TABLET PO SCH ×3 (10:27→21:00)
[2020-09-08] MEDS: [UNRECOGNIZED DRUG - OTHER] SCH ×3 (10:27→21:00)
[2020-09-08] MEDS: PANTOPRAZOLE SODIUM 40 MG/VIAL (PROTONIX) IVP SCH ×3 (10:27→21:00)
[2020-09-08] MEDS: FERROUS SULFATE 325 MG TABLET.DR PO SCH (10:28)
[2020-09-08] MEDS: glipiZIDE XL 5 MG TAB ( GLUCOTROL XL) PO SCH (10:28)
[2020-09-08] MEDS: OXYBUTYNIN CHLORIDE 5 MG TABLET PO SCH ×3 (10:28→21:00)
[2020-09-08] MEDS: APIXABAN 2.5 MG TABLET PO SCH ×2 (10:28→21:00)
[2020-09-08] MEDS: calcitrioL 0.25 MCG CAPSULE PO SCH (10:28)
[2020-09-08] MEDS: ATORVASTATIN 10 MG TABLET PO SCH (10:28)
[2020-09-08] MEDS: METOPROLOL SUCCINATE 50 MG TAB.SR.24H (TOPROL XL) PO SCH (10:29)
[2020-09-08 11:00] VITALS: BP_SYST 169
[2020-09-08 15:52] VITALS: BP_SYST 202
[2020-09-08] MEDS ORDERED: HYDROCHLOROTHIAZIDE 25 MG TABLET (HCTZ) PO ONE (17:00)
[2020-09-08] MEDS ORDERED: cloNIDine HCL 0.1 MG TABLET ONE (18:11)
[2020-09-08 20:00] VITALS: BP_SYST 211
[2020-09-08] MEDS: traZODone HCL 50 MG TABLET (DESYREL) PO SCH ×2 (21:00)
[2020-09-08] MEDS: TERAZOSIN HCL 1 MG CAPSULE (HYTRIN) PO SCH ×2 (21:00)
[2020-09-08] MEDS: ACETAMINOPHEN 650 MG/20.3 ML UDC GT PRN (23:45)
[2020-09-09] VITALS (7 sets, daily range): BP systolic 164–189
[2020-09-09] MEDS: INSULIN REGULAR, HUMAN 100 UNITS/ML, 10 ML VIAL (humuLIN R) SUBCUT PRN
[2020-09-09] MEDS: ALBUTEROL MDI INHALATION 8 GM INH INH SCH ×2 (03:21→20:30)
[2020-09-09] MEDS ORDERED: cloNIDine HCL 0.1 MG TABLET ONE ×4 (05:16→18:34)
[2020-09-09] MEDS: cloNIDine HCL 0.1 MG TABLET PO SCH ×4 (06:00→18:34)
[2020-09-09] MEDS: INSULIN GLARGINE 100 UNITS/ML 10 ML VIAL SQ SCH (07:01)
[2020-09-09] MEDS: SULFACETAMIDE SODIUM 10% EYE DROPS 15 ML OP SCH ×4 (08:00→17:00)
[2020-09-09 08:21] LABS: BASOPHILS % (AUTO) 0.1 % (0.0-2.0); EOSINOPHILS # (AUTO) 0.1 K/uL (0.0-0.4); EOSINOPHILS % (AUTO) 2.8 % (0.0-4.0); HEMATOCRIT 25.5 % (36-54); HEMOGLOBIN 8.6 g/dL (14.0-18.0); LYMPHOCYTES # (AUTO) 1.3 K/uL (1.0-5.5); LYMPHOCYTES % (AUTO) 24.8 % (20.5-51.5); MEAN CORPUSCULAR HEMOGLOBIN 29 pg (27-31); MEAN CORPUSCULAR HGB CONC 34 % (32-36); MEAN CORPUSCULAR VOLUME 87 fL (79.0-98.0); MONOCYTES # (AUTO) 0.6 K/uL (0.0-1.0); MONOCYTES % (AUTO) 11.2 % (1.7-9.3); NEUTROPHILS # (AUTO) 3.1 K/uL (1.8-7.7); NEUTROPHILS % (AUTO) 61.1 % (40.0-70.0); PLATELET COUNT (AUTO) 270 K/uL (130-430); RED BLOOD CELL COUNT(AUTO) 2.95 MIL/uL (4.2-6.2); WHITE BLOOD COUNT (AUTO) 5.1 K/uL (4.8-10.8)
[2020-09-09 08:33] LABS: ALANINE AMINOTRANSFERASE 23 U/L (12-78); ALBUMIN 2.1 g/dL (3.4-4.8); ANION GAP 8 (5-15); ASPARTATE AMINOTRANSFERASE 19 U/L (10-37); CALCIUM 8.8 mg/dL (8.4-11.0); CHLORIDE 103 mmol/L (98-107); GLUCOSE 123 mg/dL (70-99); POTASSIUM 4.4 mmol/L (3.5-5.1); SODIUM SERUM 139 mmol/L (136-145); TOTAL BILIRUBIN 0.1 mg/dL (0.0-1.0); UREA NITROGEN, BLOOD 51 mg/dL (8-21)
[2020-09-09] MEDS ORDERED: HYDROCHLOROTHIAZIDE 25 MG TABLET (HCTZ) PO SCH (09:00)
[2020-09-09] MEDS: hydrALAZINE HCL 25 MG TABLET PO SCH ×2 (09:00→21:00)
[2020-09-09] MEDS: METOPROLOL SUCCINATE 50 MG TAB.SR.24H (TOPROL XL) PO SCH (09:00)
[2020-09-09] MEDS: SENNA 8.8 MG/5 ML UDC GT SCH (09:33)
[2020-09-09] MEDS: DOCUSATE SODIUM 100 MG/10 ML UDC PO SCH ×2 (09:33→21:00)
[2020-09-09] MEDS: PANTOPRAZOLE SODIUM 40 MG/VIAL (PROTONIX) IVP SCH ×2 (09:33→21:00)
[2020-09-09] MEDS: FLUTICASONE PROPIONATE 50 mCg/SPRAY 16 GM NS SCH ×2 (09:34→21:00)
[2020-09-09] MEDS: APIXABAN 2.5 MG TABLET PO SCH ×2 (09:34→21:00)
[2020-09-09] MEDS: [UNRECOGNIZED DRUG - OTHER] SCH ×3 (09:34→21:00)
[2020-09-09] MEDS: FERROUS SULFATE 325 MG TABLET.DR PO SCH (09:35)
[2020-09-09] MEDS: POLYETHYLENE GLYCOL 3350, 17 GM/ POWD.PACK PO SCH (09:35)
[2020-09-09] MEDS: ATORVASTATIN 10 MG TABLET PO SCH (09:35)
[2020-09-09] MEDS: OXYBUTYNIN CHLORIDE 5 MG TABLET PO SCH ×2 (09:35→21:00)
[2020-09-09] MEDS: calcitrioL 0.25 MCG CAPSULE PO SCH (09:35)
[2020-09-09] MEDS: glipiZIDE XL 5 MG TAB ( GLUCOTROL XL) PO SCH (09:36)
[2020-09-09] MEDS ORDERED: amLODIPine BESYLATE 10 MG TABLET PO ONE (16:15)
[2020-09-09] MEDS: traZODone HCL 50 MG TABLET (DESYREL) PO SCH (21:00)
[2020-09-09] MEDS: TERAZOSIN HCL 1 MG CAPSULE (HYTRIN) PO SCH (21:00)
[2020-09-09] MEDS: METOPROLOL TARTRATE 25 MG TABLET PO SCH (21:00)
[2020-09-09] MEDS: ACETAMINOPHEN 650 MG/20.3 ML UDC GT PRN (23:30)
[2020-09-10] VITALS (7 sets, daily range): BP systolic 167–185
[2020-09-10] MEDS: ALBUTEROL MDI INHALATION 8 GM INH INH SCH ×6 (00:15→23:40)
[2020-09-10] MEDS: cloNIDine HCL 0.1 MG TABLET PO SCH ×4 (06:00→17:25)
[2020-09-10] MEDS: INSULIN GLARGINE 100 UNITS/ML 10 ML VIAL SQ SCH (06:54)
[2020-09-10 06:58] LABS: BASOPHILS # (AUTO) 0.1 K/uL (0.0-0.2); BASOPHILS % (AUTO) 1.9 % (0.0-2.0); EOSINOPHILS # (AUTO) 0.2 K/uL (0.0-0.4); EOSINOPHILS % (AUTO) 3.1 % (0.0-4.0); HEMATOCRIT 26.2 % (36-54); HEMOGLOBIN 8.7 g/dL (14.0-18.0); LYMPHOCYTES # (AUTO) 0.9 K/uL (1.0-5.5); LYMPHOCYTES % (AUTO) 15.8 % (20.5-51.5); MEAN CORPUSCULAR HEMOGLOBIN 29 pg (27-31); MEAN CORPUSCULAR HGB CONC 33 % (32-36); MEAN CORPUSCULAR VOLUME 86 fL (79.0-98.0); MONOCYTES # (AUTO) 0.4 K/uL (0.0-1.0); MONOCYTES % (AUTO) 7.2 % (1.7-9.3); PLATELET COUNT (AUTO) 302 K/uL (130-430); RED BLOOD CELL COUNT(AUTO) 3.06 MIL/uL (4.2-6.2); WHITE BLOOD COUNT (AUTO) 5.6 K/uL (4.8-10.8)
[2020-09-10 07:17] LABS: ALANINE AMINOTRANSFERASE 23 U/L (12-78); ALBUMIN 2.1 g/dL (3.4-4.8); ANION GAP 10 (5-15); ASPARTATE AMINOTRANSFERASE 17 U/L (10-37); CALCIUM 8.6 mg/dL (8.4-11.0); CHLORIDE 104 mmol/L (98-107); CREATININE 7.07 mg/dL (0.55-1.30); GLUCOSE 97 mg/dL (70-99); PHOSPHORUS 6.4 mg/dL (2.7-4.5); POTASSIUM 4.2 mmol/L (3.5-5.1); SODIUM SERUM 140 mmol/L (136-145); TOTAL BILIRUBIN 0.2 mg/dL (0.0-1.0); UREA NITROGEN, BLOOD 58 mg/dL (8-21)
[2020-09-10] MEDS: METOPROLOL TARTRATE 25 MG TABLET PO SCH ×2 (09:00→21:00)
[2020-09-10] MEDS: hydrALAZINE HCL 25 MG TABLET PO SCH ×2 (09:00→21:00)
[2020-09-10] MEDS: amLODIPine BESYLATE 10 MG TABLET PO SCH (09:00)
[2020-09-10] MEDS: [UNRECOGNIZED DRUG - OTHER] SCH ×3 (10:50→21:00)
[2020-09-10] MEDS: FLUTICASONE PROPIONATE 50 mCg/SPRAY 16 GM NS SCH ×2 (10:50→21:00)
[2020-09-10] MEDS: APIXABAN 2.5 MG TABLET PO SCH ×2 (10:51→21:00)
[2020-09-10] MEDS: DOCUSATE SODIUM 100 MG/10 ML UDC PO SCH ×2 (10:52→21:00)
[2020-09-10] MEDS: PANTOPRAZOLE SODIUM 40 MG/VIAL (PROTONIX) IVP SCH ×2 (10:54→21:00)
[2020-09-10] MEDS: SENNA 8.8 MG/5 ML UDC GT SCH (10:54)
[2020-09-10] MEDS: OXYBUTYNIN CHLORIDE 5 MG TABLET PO SCH ×2 (10:54→21:00)
[2020-09-10] MEDS: POLYETHYLENE GLYCOL 3350, 17 GM/ POWD.PACK PO SCH (10:55)
[2020-09-10] MEDS: ATORVASTATIN 10 MG TABLET PO SCH (10:55)
[2020-09-10] MEDS: calcitrioL 0.25 MCG CAPSULE PO SCH (10:55)
[2020-09-10] MEDS: FERROUS SULFATE 325 MG TABLET.DR PO SCH (10:55)
[2020-09-10] MEDS: glipiZIDE XL 5 MG TAB ( GLUCOTROL XL) PO SCH (10:58)
[2020-09-10] MEDS ORDERED: SPIRONOLACTONE 25 MG TABLET (ALDACTONE) PO ONE (11:21)
[2020-09-10] MEDS: ACETAMINOPHEN 650 MG/20.3 ML UDC GT PRN ×2 (11:30→15:54)
[2020-09-10] MEDS ORDERED: HEPARIN SODIUM, PORCINE 10,000 UNITS/ 10 ML VIAL MC ONE ×2 (13:15)
[2020-09-10] MEDS: INSULIN REGULAR, HUMAN 100 UNITS/ML, 10 ML VIAL (humuLIN R) SUBCUT PRN (17:40)
[2020-09-10] MEDS ORDERED: cloNIDine HCL 0.1 MG TABLET ONE (17:43)
[2020-09-10] MEDS: TERAZOSIN HCL 1 MG CAPSULE (HYTRIN) PO SCH (21:00)
[2020-09-10] MEDS: traZODone HCL 50 MG TABLET (DESYREL) PO SCH (21:00)
[2020-09-11] VITALS: BP_SYST 198
[2020-09-11] MEDS ORDERED: cloNIDine HCL 0.1 MG TABLET ONE ×2 (01:38→06:20)
[2020-09-11] MEDS: ALBUTEROL MDI INHALATION 8 GM INH INH SCH ×6 (03:30→23:29)
[2020-09-11] MEDS: cloNIDine HCL 0.1 MG TABLET PO SCH ×4 (06:48→18:36)
[2020-09-11] MEDS: INSULIN GLARGINE 100 UNITS/ML 10 ML VIAL SQ SCH (06:49)
[2020-09-11 07:48] VITALS: BP_SYST 160
[2020-09-11 08:06] LABS: BASOPHILS % (AUTO) 0.9 % (0.0-2.0); EOSINOPHILS % (AUTO) 0.5 % (0.0-4.0); LYMPHOCYTES # (AUTO) 0.6 K/uL (1.0-5.5); LYMPHOCYTES % (AUTO) 12.7 % (20.5-51.5); MEAN CORPUSCULAR HEMOGLOBIN 30 pg (27-31); MEAN CORPUSCULAR HGB CONC 35 % (32-36); MEAN CORPUSCULAR VOLUME 86 fL (79.0-98.0); MONOCYTES # (AUTO) 0.6 K/uL (0.0-1.0); MONOCYTES % (AUTO) 11.4 % (1.7-9.3); NEUTROPHILS # (AUTO) 3.7 K/uL (1.8-7.7); NEUTROPHILS % (AUTO) 74.5 % (40.0-70.0); PLATELET COUNT (AUTO) 278 K/uL (130-430); RED BLOOD CELL COUNT(AUTO) 3.04 MIL/uL (4.2-6.2); RED CELL DISTRIBUTION WIDTH 15.1 % (9.0-15.0); WHITE BLOOD COUNT (AUTO) 4.9 K/uL (4.8-10.8)
[2020-09-11 08:36] LABS: ANION GAP 11 (5-15); CALCIUM 8.5 mg/dL (8.4-11.0); CHLORIDE 103 mmol/L (98-107); CREATININE 6.07 mg/dL (0.55-1.30); GLUCOSE 94 mg/dL (70-99); PHOSPHORUS 4.6 mg/dL (2.7-4.5); POTASSIUM 4.3 mmol/L (3.5-5.1); SODIUM SERUM 140 mmol/L (136-145); UREA NITROGEN, BLOOD 42 mg/dL (8-21)
[2020-09-11] MEDS: hydrALAZINE HCL 25 MG TABLET PO SCH ×2 (09:00→21:00)
[2020-09-11] MEDS: [UNRECOGNIZED DRUG - OTHER] SCH ×3 (09:00→21:00)
[2020-09-11] MEDS: FLUTICASONE PROPIONATE 50 mCg/SPRAY 16 GM NS SCH ×2 (11:06→21:00)
[2020-09-11] MEDS: SENNA 8.8 MG/5 ML UDC GT SCH (11:07)
[2020-09-11] MEDS: DOCUSATE SODIUM 100 MG/10 ML UDC PO SCH ×2 (11:08→21:00)
[2020-09-11] MEDS: POLYETHYLENE GLYCOL 3350, 17 GM/ POWD.PACK PO SCH (11:08)
[2020-09-11] MEDS: glipiZIDE XL 5 MG TAB ( GLUCOTROL XL) PO SCH (11:09)
[2020-09-11] MEDS: calcitrioL 0.25 MCG CAPSULE PO SCH (11:09)
[2020-09-11] MEDS: METOPROLOL TARTRATE 25 MG TABLET PO SCH ×2 (11:10→21:00)
[2020-09-11] MEDS: amLODIPine BESYLATE 10 MG TABLET PO SCH (11:10)
[2020-09-11] MEDS: PANTOPRAZOLE SODIUM 40 MG/VIAL (PROTONIX) IVP SCH ×2 (11:10→21:00)
[2020-09-11] MEDS: ATORVASTATIN 10 MG TABLET PO SCH (11:11)
[2020-09-11] MEDS: OXYBUTYNIN CHLORIDE 5 MG TABLET PO SCH ×2 (11:11→21:00)
[2020-09-11] MEDS: FERROUS SULFATE 325 MG TABLET.DR PO SCH (11:12)
[2020-09-11] MEDS: APIXABAN 2.5 MG TABLET PO SCH ×2 (11:14→21:00)
[2020-09-11] MEDS: SPIRONOLACTONE 25 MG TABLET (ALDACTONE) PO SCH (11:21)
[2020-09-11 12:09] VITALS: BP_SYST 174
[2020-09-11 12:20] VITALS: BP_SYST 159
[2020-09-11 16:00] VITALS: BP_SYST 160
[2020-09-11 20:00] VITALS: BP_SYST 161
[2020-09-11] MEDS ORDERED: NIFEdipine 30 MG TAB.ER.24 PO ONE (20:36)
[2020-09-11] MEDS: traZODone HCL 50 MG TABLET (DESYREL) PO SCH (21:00)
[2020-09-11] MEDS: TERAZOSIN HCL 1 MG CAPSULE (HYTRIN) PO SCH (21:00)
[2020-09-11] MEDS: NIFEdipine 30 MG TAB.ER.24 PO SCH (21:00)
[2020-09-12] VITALS: BP_SYST 145
[2020-09-12] MEDS ORDERED: D5NS 1,000 ML IV SCH (01:45)
[2020-09-12] MEDS: ALBUTEROL MDI INHALATION 8 GM INH INH SCH ×5 (03:42→21:06)
[2020-09-12] MEDS: cloNIDine HCL 0.1 MG TABLET PO SCH ×4 (06:00→18:56)
[2020-09-12] MEDS: INSULIN GLARGINE 100 UNITS/ML 10 ML VIAL SQ SCH (07:00)
[2020-09-12 07:45] VITALS: BP_SYST 138
[2020-09-12 08:20] LABS: BASOPHILS % (AUTO) 1.1 % (0.0-2.0); EOSINOPHILS % (AUTO) 0.2 % (0.0-4.0); HEMATOCRIT 25.1 % (36-54); HEMOGLOBIN 8.6 g/dL (14.0-18.0); LYMPHOCYTES % (AUTO) 24.5 % (20.5-51.5); MEAN CORPUSCULAR HEMOGLOBIN 29 pg (27-31); MEAN CORPUSCULAR HGB CONC 34 % (32-36); MEAN CORPUSCULAR VOLUME 86 fL (79.0-98.0); MONOCYTES # (AUTO) 0.5 K/uL (0.0-1.0); NEUTROPHILS # (AUTO) 2.6 K/uL (1.8-7.7); NEUTROPHILS % (AUTO) 62.2 % (40.0-70.0); PLATELET COUNT (AUTO) 248 K/uL (130-430); RED BLOOD CELL COUNT(AUTO) 2.93 MIL/uL (4.2-6.2); RED CELL DISTRIBUTION WIDTH 15.2 % (9.0-15.0); WHITE BLOOD COUNT (AUTO) 4.1 K/uL (4.8-10.8)
[2020-09-12 08:49] LABS: ANION GAP 12 (5-15); CALCIUM 8.4 mg/dL (8.4-11.0); CHLORIDE 103 mmol/L (98-107); CREATININE 6.92 mg/dL (0.55-1.30); GLUCOSE 140 mg/dL (70-99); PHOSPHORUS 6.2 mg/dL (2.7-4.5); POTASSIUM 4.8 mmol/L (3.5-5.1); SODIUM SERUM 139 mmol/L (136-145); UREA NITROGEN, BLOOD 51 mg/dL (8-21)
[2020-09-12] MEDS: glipiZIDE XL 5 MG TAB ( GLUCOTROL XL) PO SCH (09:00)
[2020-09-12] MEDS: SENNA 8.8 MG/5 ML UDC GT SCH (09:20)
[2020-09-12] MEDS: FLUTICASONE PROPIONATE 50 mCg/SPRAY 16 GM NS SCH ×2 (09:21→21:05)
[2020-09-12] MEDS: [UNRECOGNIZED DRUG - OTHER] SCH ×3 (09:21→21:05)
[2020-09-12] MEDS: PANTOPRAZOLE SODIUM 40 MG/VIAL (PROTONIX) IVP SCH ×2 (09:21→21:05)
[2020-09-12] MEDS: DOCUSATE SODIUM 100 MG/10 ML UDC PO SCH ×2 (09:22→21:05)
[2020-09-12] MEDS: FERROUS SULFATE 325 MG TABLET.DR PO SCH (09:23)
[2020-09-12] MEDS: calcitrioL 0.25 MCG CAPSULE PO SCH (09:26)
[2020-09-12] MEDS: POLYETHYLENE GLYCOL 3350, 17 GM/ POWD.PACK PO SCH (09:26)
[2020-09-12] MEDS: hydrALAZINE HCL 25 MG TABLET PO SCH ×2 (09:27→21:05)
[2020-09-12] MEDS: METOPROLOL TARTRATE 25 MG TABLET PO SCH ×2 (09:30→21:06)
[2020-09-12] MEDS: OXYBUTYNIN CHLORIDE 5 MG TABLET PO SCH ×2 (09:31→21:06)
[2020-09-12] MEDS: ATORVASTATIN 10 MG TABLET PO SCH (09:32)
[2020-09-12] MEDS: APIXABAN 2.5 MG TABLET PO SCH ×2 (09:33→21:05)
[2020-09-12] MEDS ORDERED: NIFEdipine 30 MG TAB.ER.24 PO ONE (09:54)
[2020-09-12] MEDS: SPIRONOLACTONE 25 MG TABLET (ALDACTONE) PO SCH (09:55)
[2020-09-12] MEDS: NIFEdipine 30 MG TAB.ER.24 PO SCH ×2 (09:55→21:00)
[2020-09-12] MEDS: INSULIN REGULAR, HUMAN 100 UNITS/ML, 10 ML VIAL (humuLIN R) SUBCUT PRN (12:36)
[2020-09-12] MEDS ORDERED: HEPARIN SODIUM, PORCINE 10,000 UNITS/ 10 ML VIAL MC ONE (13:00)
[2020-09-12 15:50] VITALS: BP_SYST 158
[2020-09-12] MEDS ORDERED: cloNIDine HCL 0.1 MG TABLET ONE (18:55)
[2020-09-12] MEDS: traZODone HCL 50 MG TABLET (DESYREL) PO SCH (21:05)
[2020-09-12] MEDS: TERAZOSIN HCL 1 MG CAPSULE (HYTRIN) PO SCH (21:06)
[2020-09-12 21:07] VITALS: BP_SYST 142
[2020-09-13] MEDS: ALBUTEROL MDI INHALATION 8 GM INH INH SCH ×5 (00:48→15:21)
[2020-09-13 02:00] VITALS: BP_SYST 125
[2020-09-13] MEDS: cloNIDine HCL 0.1 MG TABLET PO SCH ×4 (06:00→17:53)
[2020-09-13] MEDS: INSULIN GLARGINE 100 UNITS/ML 10 ML VIAL SQ SCH (06:59)
[2020-09-13] MEDS ORDERED: MEPERIDINE HCL/PF 100 MG/ML AMP ONE (07:33)
[2020-09-13] MEDS ORDERED: MIDAZOLAM HCL 5 MG/5 ML VIAL ONE (07:34)
[2020-09-13] MEDS ORDERED: SIMETHICONE 40 MG/0.6 ML ML ONE (07:34)
[2020-09-13 07:41] LABS: BASOPHILS % (AUTO) 1.2 % (0.0-2.0); EOSINOPHILS % (AUTO) 0.1 % (0.0-4.0); HEMATOCRIT 24.5 % (36-54); HEMOGLOBIN 8.2 g/dL (14.0-18.0); LYMPHOCYTES % (AUTO) 28.6 % (20.5-51.5); MEAN CORPUSCULAR HEMOGLOBIN 29 pg (27-31); MEAN CORPUSCULAR HGB CONC 34 % (32-36); MEAN CORPUSCULAR VOLUME 86 fL (79.0-98.0); MONOCYTES # (AUTO) 0.4 K/uL (0.0-1.0); MONOCYTES % (AUTO) 12.1 % (1.7-9.3); NEUTROPHILS # (AUTO) 2.1 K/uL (1.8-7.7); PLATELET COUNT (AUTO) 232 K/uL (130-430); RED BLOOD CELL COUNT(AUTO) 2.84 MIL/uL (4.2-6.2); RED CELL DISTRIBUTION WIDTH 14.9 % (9.0-15.0); WHITE BLOOD COUNT (AUTO) 3.7 K/uL (4.8-10.8)
[2020-09-13 08:21] LABS: ANION GAP 9 (5-15); CHLORIDE 103 mmol/L (98-107); GLUCOSE 201 mg/dL (70-99); PHOSPHORUS 5.4 mg/dL (2.7-4.5); POTASSIUM 4.4 mmol/L (3.5-5.1); SODIUM SERUM 138 mmol/L (136-145); UREA NITROGEN, BLOOD 40 mg/dL (8-21)
[2020-09-13 08:42] LABS: INR 1.1 (0.80-1.20); PROTHROMBIN TIME 11.5 SECS (9.5-12.5)
[2020-09-13] MEDS: FLUTICASONE PROPIONATE 50 mCg/SPRAY 16 GM NS SCH ×2 (09:00→20:44)
[2020-09-13] MEDS: DOCUSATE SODIUM 100 MG/10 ML UDC PO SCH ×2 (09:00→20:44)
[2020-09-13] MEDS: NIFEdipine 30 MG TAB.ER.24 PO SCH ×2 (09:00→20:45)
[2020-09-13] MEDS: hydrALAZINE HCL 25 MG TABLET PO SCH ×2 (09:00→20:44)
[2020-09-13] MEDS: glipiZIDE XL 5 MG TAB ( GLUCOTROL XL) PO SCH (09:00)
[2020-09-13] MEDS: APIXABAN 2.5 MG TABLET PO SCH ×2 (09:00→20:44)
[2020-09-13] MEDS: calcitrioL 0.25 MCG CAPSULE PO SCH (09:00)
[2020-09-13] MEDS: [UNRECOGNIZED DRUG - OTHER] SCH ×3 (09:00→20:43)
[2020-09-13] MEDS: POLYETHYLENE GLYCOL 3350, 17 GM/ POWD.PACK PO SCH (09:00)
[2020-09-13] MEDS: SENNA 8.8 MG/5 ML UDC GT SCH (09:00)
[2020-09-13] MEDS: OXYBUTYNIN CHLORIDE 5 MG TABLET PO SCH ×2 (09:00→20:44)
[2020-09-13] MEDS: METOPROLOL TARTRATE 25 MG TABLET PO SCH ×2 (09:00→20:45)
[2020-09-13] MEDS: ATORVASTATIN 10 MG TABLET PO SCH (09:00)
[2020-09-13] MEDS: FERROUS SULFATE 325 MG TABLET.DR PO SCH (09:00)
[2020-09-13] MEDS: SPIRONOLACTONE 25 MG TABLET (ALDACTONE) PO SCH (09:00)
[2020-09-13 10:43] VITALS: BP_SYST 148
[2020-09-13] MEDS: METOCLOPRAMIDE HCL 10 MG/2 ML VIAL IVP SCH ×2 (11:30→17:47)
[2020-09-13] MEDS: PANTOPRAZOLE SODIUM 40 MG/VIAL (PROTONIX) IVP SCH ×2 (11:59→20:43)
[2020-09-13] MEDS: ACETAMINOPHEN 650 MG/20.3 ML UDC GT PRN (14:30)
[2020-09-13 16:24] VITALS: BP_SYST 127
[2020-09-13] MEDS ORDERED: cloNIDine HCL 0.1 MG TABLET ONE (17:53)
[2020-09-13] MEDS: INSULIN REGULAR, HUMAN 100 UNITS/ML, 10 ML VIAL (humuLIN R) SUBCUT PRN (17:53)
[2020-09-13] MEDS: traZODone HCL 50 MG TABLET (DESYREL) PO SCH (20:44)
[2020-09-13 20:45] VITALS: BP_SYST 127
[2020-09-13] MEDS: TERAZOSIN HCL 1 MG CAPSULE (HYTRIN) PO SCH (20:45)
[2020-09-14] VITALS (7 sets, daily range): BP systolic 143–172
[2020-09-14] MEDS ORDERED: cloNIDine HCL 0.1 MG TABLET ONE ×2 (00:14→06:36)
[2020-09-14] MEDS: cloNIDine HCL 0.1 MG TABLET PO SCH ×5 (00:28→23:50)
[2020-09-14] MEDS: ALBUTEROL MDI INHALATION 8 GM INH INH SCH ×7 (01:04→23:09)
[2020-09-14] MEDS: METOCLOPRAMIDE HCL 10 MG/2 ML VIAL IVP SCH ×3 (06:34→17:45)
[2020-09-14] MEDS: INSULIN GLARGINE 100 UNITS/ML 10 ML VIAL SQ SCH (06:34)
[2020-09-14] MEDS: ACETAMINOPHEN 650 MG/20.3 ML UDC GT PRN (06:36)
[2020-09-14 07:40] LABS: EOSINOPHILS % (AUTO) 1.1 % (0.0-4.0); HEMATOCRIT 26.1 % (36-54); HEMOGLOBIN 8.7 g/dL (14.0-18.0); LYMPHOCYTES # (AUTO) 0.9 K/uL (1.0-5.5); MEAN CORPUSCULAR HEMOGLOBIN 29 pg (27-31); MEAN CORPUSCULAR HGB CONC 33 % (32-36); MEAN CORPUSCULAR VOLUME 86 fL (79.0-98.0); MONOCYTES # (AUTO) 0.4 K/uL (0.0-1.0); MONOCYTES % (AUTO) 8.7 % (1.7-9.3); NEUTROPHILS # (AUTO) 2.9 K/uL (1.8-7.7); NEUTROPHILS % (AUTO) 67.2 % (40.0-70.0); PLATELET COUNT (AUTO) 217 K/uL (130-430); RED BLOOD CELL COUNT(AUTO) 3.03 MIL/uL (4.2-6.2); RED CELL DISTRIBUTION WIDTH 14.9 % (9.0-15.0); WHITE BLOOD COUNT (AUTO) 4.3 K/uL (4.8-10.8)
[2020-09-14 08:12] LABS: ALANINE AMINOTRANSFERASE 17 U/L (12-78); ALBUMIN 1.8 g/dL (3.4-4.8); ANION GAP 9 (5-15); ASPARTATE AMINOTRANSFERASE 28 U/L (10-37); CALCIUM 8.1 mg/dL (8.4-11.0); CHLORIDE 101 mmol/L (98-107); CREATININE 6.37 mg/dL (0.55-1.30); GLUCOSE 122 mg/dL (70-99); POTASSIUM 5.1 mmol/L (3.5-5.1); SODIUM SERUM 131 mmol/L (136-145); TOTAL BILIRUBIN 0.4 mg/dL (0.0-1.0); UREA NITROGEN, BLOOD 45 mg/dL (8-21)
[2020-09-14] MEDS: SPIRONOLACTONE 25 MG TABLET (ALDACTONE) PO SCH (08:45)
[2020-09-14] MEDS: NIFEdipine 30 MG TAB.ER.24 PO SCH ×2 (08:45→22:23)
[2020-09-14] MEDS: hydrALAZINE HCL 25 MG TABLET PO SCH ×2 (09:30→22:22)
[2020-09-14] MEDS: POLYETHYLENE GLYCOL 3350, 17 GM/ POWD.PACK PO SCH (09:30)
[2020-09-14] MEDS: ATORVASTATIN 10 MG TABLET PO SCH (09:30)
[2020-09-14] MEDS: OXYBUTYNIN CHLORIDE 5 MG TABLET PO SCH ×2 (09:30→22:23)
[2020-09-14] MEDS: FLUTICASONE PROPIONATE 50 mCg/SPRAY 16 GM NS SCH ×2 (09:30→22:22)
[2020-09-14] MEDS: PANTOPRAZOLE SODIUM 40 MG/VIAL (PROTONIX) IVP SCH ×2 (09:30→22:22)
[2020-09-14] MEDS: calcitrioL 0.25 MCG CAPSULE PO SCH (09:30)
[2020-09-14] MEDS: SENNA 8.8 MG/5 ML UDC GT SCH (09:30)
[2020-09-14] MEDS: METOPROLOL TARTRATE 25 MG TABLET PO SCH ×2 (09:30→22:23)
[2020-09-14] MEDS: DOCUSATE SODIUM 100 MG/10 ML UDC PO SCH ×2 (09:30→22:23)
[2020-09-14] MEDS: [UNRECOGNIZED DRUG - OTHER] SCH ×3 (09:30→22:22)
[2020-09-14] MEDS: APIXABAN 2.5 MG TABLET PO SCH ×2 (09:30→22:07)
[2020-09-14] MEDS: glipiZIDE XL 5 MG TAB ( GLUCOTROL XL) PO SCH (09:30)
[2020-09-14] MEDS: FERROUS SULFATE 325 MG TABLET.DR PO SCH (09:30)
[2020-09-14] MEDS ORDERED: NIFEdipine 30 MG TAB.ER.24 PO ONE (21:53)
[2020-09-14] MEDS: traZODone HCL 50 MG TABLET (DESYREL) PO SCH (22:23)
[2020-09-14] MEDS: TERAZOSIN HCL 1 MG CAPSULE (HYTRIN) PO SCH (22:23)
[2020-09-14] MEDS: DEXTROSE 50% JECT 50 ML DISP.SYRIN IVP PRN (23:53)
[2020-09-15] VITALS: BP_SYST 158
[2020-09-15] MEDS: ALBUTEROL MDI INHALATION 8 GM INH INH SCH ×3 (03:29→21:06)
[2020-09-15] MEDS: cloNIDine HCL 0.1 MG TABLET PO SCH ×3 (06:02→17:37)
[2020-09-15] MEDS: METOCLOPRAMIDE HCL 10 MG/2 ML VIAL IVP SCH ×3 (06:03→17:37)
[2020-09-15] MEDS: INSULIN GLARGINE 100 UNITS/ML 10 ML VIAL SQ SCH (06:03)
[2020-09-15 08:17] LABS: BASOPHILS % (AUTO) 0.4 % (0.0-2.0); EOSINOPHILS % (AUTO) 0.9 % (0.0-4.0); HEMATOCRIT 26.9 % (36-54); HEMOGLOBIN 8.9 g/dL (14.0-18.0); LYMPHOCYTES # (AUTO) 0.8 K/uL (1.0-5.5); LYMPHOCYTES % (AUTO) 25.8 % (20.5-51.5); MEAN CORPUSCULAR HEMOGLOBIN 29 pg (27-31); MEAN CORPUSCULAR HGB CONC 33 % (32-36); MEAN CORPUSCULAR VOLUME 86 fL (79.0-98.0); MONOCYTES # (AUTO) 0.3 K/uL (0.0-1.0); MONOCYTES % (AUTO) 9.8 % (1.7-9.3); NEUTROPHILS % (AUTO) 63.1 % (40.0-70.0); PLATELET COUNT (AUTO) 201 K/uL (130-430); RED BLOOD CELL COUNT(AUTO) 3.13 MIL/uL (4.2-6.2); RED CELL DISTRIBUTION WIDTH 15.1 % (9.0-15.0); WHITE BLOOD COUNT (AUTO) 3.2 K/uL (4.8-10.8)
[2020-09-15 08:51] LABS: ANION GAP 9 (5-15); CALCIUM 8.3 mg/dL (8.4-11.0); CHLORIDE 101 mmol/L (98-107); CREATININE 5.49 mg/dL (0.55-1.30); GLUCOSE 101 mg/dL (70-99); SODIUM SERUM 138 mmol/L (136-145); UREA NITROGEN, BLOOD 40 mg/dL (8-21)
[2020-09-15] MEDS ORDERED: SPIRONOLACTONE 25 MG TABLET (ALDACTONE) ONE (09:49)
[2020-09-15] MEDS ORDERED: NIFEdipine 30 MG TAB.ER.24 PO ONE ×2 (09:49→21:07)
[2020-09-15] MEDS: [UNRECOGNIZED DRUG - OTHER] SCH ×3 (10:24→21:00)
[2020-09-15] MEDS: FLUTICASONE PROPIONATE 50 mCg/SPRAY 16 GM NS SCH ×2 (10:24→21:00)
[2020-09-15] MEDS: PANTOPRAZOLE SODIUM 40 MG/VIAL (PROTONIX) IVP SCH ×2 (10:24→21:00)
[2020-09-15] MEDS: SENNA 8.8 MG/5 ML UDC GT SCH (10:24)
[2020-09-15] MEDS: hydrALAZINE HCL 25 MG TABLET PO SCH ×2 (10:25→21:00)
[2020-09-15] MEDS: OXYBUTYNIN CHLORIDE 5 MG TABLET PO SCH ×2 (10:25→21:00)
[2020-09-15] MEDS: DOCUSATE SODIUM 100 MG/10 ML UDC PO SCH ×2 (10:25→21:00)
[2020-09-15] MEDS: SPIRONOLACTONE 25 MG TABLET (ALDACTONE) PO SCH (10:25)
[2020-09-15] MEDS: glipiZIDE XL 5 MG TAB ( GLUCOTROL XL) PO SCH (10:26)
[2020-09-15] MEDS: FERROUS SULFATE 325 MG TABLET.DR PO SCH (10:26)
[2020-09-15] MEDS: APIXABAN 2.5 MG TABLET PO SCH ×2 (10:26→21:00)
[2020-09-15] MEDS: ATORVASTATIN 10 MG TABLET PO SCH (10:26)
[2020-09-15] MEDS: METOPROLOL TARTRATE 25 MG TABLET PO SCH ×2 (10:26→21:00)
[2020-09-15] MEDS: POLYETHYLENE GLYCOL 3350, 17 GM/ POWD.PACK PO SCH (10:26)
[2020-09-15] MEDS: calcitrioL 0.25 MCG CAPSULE PO SCH (10:27)
[2020-09-15] MEDS: NIFEdipine 30 MG TAB.ER.24 PO SCH ×2 (10:27→21:00)
[2020-09-15 12:00] VITALS: BP_SYST 147
[2020-09-15] MEDS: INSULIN REGULAR, HUMAN 100 UNITS/ML, 10 ML VIAL (humuLIN R) SUBCUT PRN ×2 (12:00→17:37)
[2020-09-15 16:24] VITALS: BP_SYST 157
[2020-09-15 20:00] VITALS: BP_SYST 160
[2020-09-15] MEDS: traZODone HCL 50 MG TABLET (DESYREL) PO SCH (21:00)
[2020-09-15] MEDS: TERAZOSIN HCL 1 MG CAPSULE (HYTRIN) PO SCH (21:00)
[2020-09-16] VITALS: BP_SYST 148
[2020-09-16] MEDS: ACETAMINOPHEN 650 MG/20.3 ML UDC GT PRN
[2020-09-16] MEDS: INSULIN GLARGINE 100 UNITS/ML 10 ML VIAL SQ SCH (06:00)
[2020-09-16] MEDS: METOCLOPRAMIDE HCL 10 MG/2 ML VIAL IVP SCH (06:00)
[2020-09-16] MEDS: cloNIDine HCL 0.1 MG TABLET PO SCH ×4 (06:00→18:47)
[2020-09-16 08:00] VITALS: BP_SYST 125
[2020-09-16] MEDS ORDERED: SPIRONOLACTONE 25 MG TABLET (ALDACTONE) ONE (09:30)
[2020-09-16] MEDS ORDERED: NIFEdipine 30 MG TAB.ER.24 PO ONE ×2 (09:32→21:40)
[2020-09-16 09:50] LABS: BASOPHILS % (AUTO) 0.8 % (0.0-2.0); EOSINOPHILS # (AUTO) 0.1 K/uL (0.0-0.4); EOSINOPHILS % (AUTO) 3.5 % (0.0-4.0); HEMATOCRIT 26.8 % (36-54); LYMPHOCYTES # (AUTO) 0.8 K/uL (1.0-5.5); LYMPHOCYTES % (AUTO) 23.8 % (20.5-51.5); MEAN CORPUSCULAR HEMOGLOBIN 29 pg (27-31); MEAN CORPUSCULAR HGB CONC 34 % (32-36); MEAN CORPUSCULAR VOLUME 85 fL (79.0-98.0); MONOCYTES # (AUTO) 0.2 K/uL (0.0-1.0); MONOCYTES % (AUTO) 6.4 % (1.7-9.3); NEUTROPHILS # (AUTO) 2.2 K/uL (1.8-7.7); NEUTROPHILS % (AUTO) 65.5 % (40.0-70.0); PLATELET COUNT (AUTO) 190 K/uL (130-430); RED BLOOD CELL COUNT(AUTO) 3.14 MIL/uL (4.2-6.2); RED CELL DISTRIBUTION WIDTH 14.7 % (9.0-15.0); WHITE BLOOD COUNT (AUTO) 3.3 K/uL (4.8-10.8)
[2020-09-16 09:53] LABS: ANION GAP 8 (5-15); CALCIUM 8.1 mg/dL (8.4-11.0); CHLORIDE 102 mmol/L (98-107); CREATININE 6.78 mg/dL (0.55-1.30); GLUCOSE 178 mg/dL (70-99); PHOSPHORUS 5.2 mg/dL (2.7-4.5); SODIUM SERUM 138 mmol/L (136-145); UREA NITROGEN, BLOOD 52 mg/dL (8-21)
[2020-09-16] MEDS: SENNA 8.8 MG/5 ML UDC GT SCH (09:54)
[2020-09-16] MEDS: OXYBUTYNIN CHLORIDE 5 MG TABLET PO SCH ×2 (09:54→21:00)
[2020-09-16] MEDS: hydrALAZINE HCL 25 MG TABLET PO SCH ×2 (09:54→21:00)
[2020-09-16] MEDS: FLUTICASONE PROPIONATE 50 mCg/SPRAY 16 GM NS SCH ×2 (09:54→21:00)
[2020-09-16] MEDS: SPIRONOLACTONE 25 MG TABLET (ALDACTONE) PO SCH (09:54)
[2020-09-16] MEDS: [UNRECOGNIZED DRUG - OTHER] SCH ×3 (09:54→21:00)
[2020-09-16] MEDS: DOCUSATE SODIUM 100 MG/10 ML UDC PO SCH ×2 (09:54→21:00)
[2020-09-16] MEDS: PANTOPRAZOLE SODIUM 40 MG/VIAL (PROTONIX) IVP SCH ×2 (09:54→21:00)
[2020-09-16] MEDS: FERROUS SULFATE 325 MG TABLET.DR PO SCH (09:55)
[2020-09-16] MEDS: calcitrioL 0.25 MCG CAPSULE PO SCH (09:55)
[2020-09-16] MEDS: NIFEdipine 30 MG TAB.ER.24 PO SCH ×2 (09:55→21:00)
[2020-09-16] MEDS: POLYETHYLENE GLYCOL 3350, 17 GM/ POWD.PACK PO SCH (09:55)
[2020-09-16] MEDS: ATORVASTATIN 10 MG TABLET PO SCH (09:55)
[2020-09-16] MEDS: glipiZIDE XL 5 MG TAB ( GLUCOTROL XL) PO SCH (09:55)
[2020-09-16] MEDS: APIXABAN 2.5 MG TABLET PO SCH ×2 (09:55→21:00)
[2020-09-16] MEDS: METOPROLOL TARTRATE 25 MG TABLET PO SCH ×2 (09:55→21:00)
[2020-09-16] MEDS: ALBUTEROL MDI INHALATION 8 GM INH INH SCH ×3 (11:30→18:49)
[2020-09-16 12:17] VITALS: BP_SYST 145
[2020-09-16] MEDS: INSULIN REGULAR, HUMAN 100 UNITS/ML, 10 ML VIAL (humuLIN R) SUBCUT PRN ×2 (12:18)
[2020-09-16 16:46] VITALS: BP_SYST 152
[2020-09-16 20:00] VITALS: BP_SYST 135
[2020-09-16] MEDS: TERAZOSIN HCL 1 MG CAPSULE (HYTRIN) PO SCH (21:00)
[2020-09-16] MEDS: traZODone HCL 50 MG TABLET (DESYREL) PO SCH (21:00)
[2020-09-17] VITALS: BP_SYST 132
[2020-09-17] MEDS: cloNIDine HCL 0.1 MG TABLET PO SCH ×4 (06:00→18:11)
[2020-09-17] MEDS: INSULIN GLARGINE 100 UNITS/ML 10 ML VIAL SQ SCH (06:47)
[2020-09-17] MEDS: ALBUTEROL MDI INHALATION 8 GM INH INH SCH ×5 (07:47→23:26)
[2020-09-17 07:59] LABS: BASOPHILS % (AUTO) 0.4 % (0.0-2.0); EOSINOPHILS # (AUTO) 0.1 K/uL (0.0-0.4); EOSINOPHILS % (AUTO) 2.1 % (0.0-4.0); HEMATOCRIT 25.8 % (36-54); HEMOGLOBIN 8.7 g/dL (14.0-18.0); LYMPHOCYTES # (AUTO) 0.9 K/uL (1.0-5.5); LYMPHOCYTES % (AUTO) 22.2 % (20.5-51.5); MEAN CORPUSCULAR HEMOGLOBIN 29 pg (27-31); MEAN CORPUSCULAR HGB CONC 34 % (32-36); MEAN CORPUSCULAR VOLUME 85 fL (79.0-98.0); MONOCYTES # (AUTO) 0.3 K/uL (0.0-1.0); MONOCYTES % (AUTO) 7.7 % (1.7-9.3); NEUTROPHILS # (AUTO) 2.6 K/uL (1.8-7.7); NEUTROPHILS % (AUTO) 67.6 % (40.0-70.0); PLATELET COUNT (AUTO) 199 K/uL (130-430); RED BLOOD CELL COUNT(AUTO) 3.02 MIL/uL (4.2-6.2); RED CELL DISTRIBUTION WIDTH 14.8 % (9.0-15.0); RETICULOCYTE COUNT 0.3 % (0.5-1.5); WHITE BLOOD COUNT (AUTO) 3.8 K/uL (4.8-10.8)
[2020-09-17 08:00] VITALS: BP_SYST 122
[2020-09-17 08:12] LABS: ALANINE AMINOTRANSFERASE 24 U/L (12-78); ALBUMIN 2.1 g/dL (3.4-4.8); ANION GAP 8 (5-15); ASPARTATE AMINOTRANSFERASE 23 U/L (10-37); CALCIUM 8.3 mg/dL (8.4-11.0); CHLORIDE 103 mmol/L (98-107); CREATININE 6.83 mg/dL (0.55-1.30); GLUCOSE 136 mg/dL (70-99); PHOSPHORUS 5.2 mg/dL (2.7-4.5); POTASSIUM 4.1 mmol/L (3.5-5.1); SODIUM SERUM 138 mmol/L (136-145); TOTAL BILIRUBIN 0.6 mg/dL (0.0-1.0); UREA NITROGEN, BLOOD 61 mg/dL (8-21)
[2020-09-17] MEDS ORDERED: SPIRONOLACTONE 25 MG TABLET (ALDACTONE) ONE (09:25)
[2020-09-17] MEDS ORDERED: NIFEdipine 30 MG TAB.ER.24 PO ONE (09:25)
[2020-09-17] MEDS: SENNA 8.8 MG/5 ML UDC GT SCH (09:36)
[2020-09-17] MEDS: PANTOPRAZOLE SODIUM 40 MG/VIAL (PROTONIX) IVP SCH ×2 (09:36→21:00)
[2020-09-17] MEDS: FLUTICASONE PROPIONATE 50 mCg/SPRAY 16 GM NS SCH ×2 (09:36→21:00)
[2020-09-17] MEDS: [UNRECOGNIZED DRUG - OTHER] SCH ×3 (09:36→21:00)
[2020-09-17] MEDS: calcitrioL 0.25 MCG CAPSULE PO SCH (09:37)
[2020-09-17] MEDS: POLYETHYLENE GLYCOL 3350, 17 GM/ POWD.PACK PO SCH (09:37)
[2020-09-17] MEDS: hydrALAZINE HCL 25 MG TABLET PO SCH ×2 (09:37→21:00)
[2020-09-17] MEDS: OXYBUTYNIN CHLORIDE 5 MG TABLET PO SCH ×2 (09:37→21:00)
[2020-09-17] MEDS: FERROUS SULFATE 325 MG TABLET.DR PO SCH (09:37)
[2020-09-17] MEDS: ATORVASTATIN 10 MG TABLET PO SCH (09:37)
[2020-09-17] MEDS: DOCUSATE SODIUM 100 MG/10 ML UDC PO SCH ×2 (09:37→21:00)
[2020-09-17] MEDS: glipiZIDE XL 5 MG TAB ( GLUCOTROL XL) PO SCH (09:37)
[2020-09-17] MEDS: SPIRONOLACTONE 25 MG TABLET (ALDACTONE) PO SCH (09:37)
[2020-09-17] MEDS: NIFEdipine 30 MG TAB.ER.24 PO SCH ×2 (09:38→21:00)
[2020-09-17] MEDS: APIXABAN 2.5 MG TABLET PO SCH ×2 (09:39→21:00)
[2020-09-17] MEDS: METOPROLOL TARTRATE 25 MG TABLET PO SCH ×2 (09:39→21:00)
[2020-09-17 10:49] VITALS: BP_SYST 122
[2020-09-17] MEDS: INSULIN REGULAR, HUMAN 100 UNITS/ML, 10 ML VIAL (humuLIN R) SUBCUT PRN ×2 (11:43→18:12)
[2020-09-17 12:32] VITALS: BP_SYST 139
[2020-09-17] MEDS ORDERED: HEPARIN SODIUM, PORCINE 10,000 UNITS/ 10 ML VIAL MC ONE ×2 (14:00)
[2020-09-17 16:00] VITALS: BP_SYST 127
[2020-09-17 20:00] VITALS: BP_SYST 121
[2020-09-17] MEDS: traZODone HCL 50 MG TABLET (DESYREL) PO SCH (21:00)
[2020-09-17] MEDS: TERAZOSIN HCL 1 MG CAPSULE (HYTRIN) PO SCH (21:00)
[2020-09-18] VITALS: BP_SYST 121
[2020-09-18] MEDS: cloNIDine HCL 0.1 MG TABLET PO SCH ×4 (01:40→17:43)
[2020-09-18] MEDS: INSULIN REGULAR, HUMAN 100 UNITS/ML, 10 ML VIAL (humuLIN R) SUBCUT PRN ×2 (01:42→17:16)
[2020-09-18] MEDS: ALBUTEROL MDI INHALATION 8 GM INH INH SCH ×5 (03:00→23:34)
[2020-09-18 07:10] LABS: FOLATE (FOLIC ACID) 8.4 ng/mL (>3.0)
[2020-09-18 07:14] LABS: EOSINOPHILS # (AUTO) 0.1 K/uL (0.0-0.4); EOSINOPHILS % (AUTO) 2.4 % (0.0-4.0); HEMATOCRIT 25.4 % (36-54); HEMOGLOBIN 8.5 g/dL (14.0-18.0); LYMPHOCYTES # (AUTO) 0.9 K/uL (1.0-5.5); LYMPHOCYTES % (AUTO) 20.9 % (20.5-51.5); MEAN CORPUSCULAR HEMOGLOBIN 29 pg (27-31); MEAN CORPUSCULAR HGB CONC 34 % (32-36); MEAN CORPUSCULAR VOLUME 85 fL (79.0-98.0); MONOCYTES # (AUTO) 0.5 K/uL (0.0-1.0); NEUTROPHILS # (AUTO) 2.8 K/uL (1.8-7.7); NEUTROPHILS % (AUTO) 64.7 % (40.0-70.0); PLATELET COUNT (AUTO) 206 K/uL (130-430); RED BLOOD CELL COUNT(AUTO) 2.99 MIL/uL (4.2-6.2); RED CELL DISTRIBUTION WIDTH 14.6 % (9.0-15.0); WHITE BLOOD COUNT (AUTO) 4.4 K/uL (4.8-10.8)
[2020-09-18] MEDS: INSULIN GLARGINE 100 UNITS/ML 10 ML VIAL SQ SCH (07:40)
[2020-09-18 07:45] LABS: ANION GAP 9 (5-15); CALCIUM 8.3 mg/dL (8.4-11.0); CHLORIDE 100 mmol/L (98-107); GLUCOSE 137 mg/dL (70-99); PHOSPHORUS 4.4 mg/dL (2.7-4.5); POTASSIUM 3.9 mmol/L (3.5-5.1); SODIUM SERUM 135 mmol/L (136-145); UREA NITROGEN, BLOOD 44 mg/dL (8-21)
[2020-09-18 08:00] VITALS: BP_SYST 111
[2020-09-18 08:06] LABS: FREE PSA <0.02 ng/mL; PROSTATE SPECIFIC AG TOTAL <0.1 ng/mL (0.0-4.0)
[2020-09-18] MEDS ORDERED: SPIRONOLACTONE 50 MG TABLET (ALDACTONE) ONE (09:14)
[2020-09-18] MEDS ORDERED: NIFEdipine 30 MG TAB.ER.24 PO ONE (09:21)
[2020-09-18] MEDS ORDERED: SPIRONOLACTONE 25 MG TABLET (ALDACTONE) ONE (09:23)
[2020-09-18] MEDS: SENNA 8.8 MG/5 ML UDC GT SCH (09:39)
[2020-09-18] MEDS: PANTOPRAZOLE SODIUM 40 MG/VIAL (PROTONIX) IVP SCH ×2 (09:39→22:08)
[2020-09-18] MEDS: SPIRONOLACTONE 25 MG TABLET (ALDACTONE) PO SCH (09:40)
[2020-09-18] MEDS: FLUTICASONE PROPIONATE 50 mCg/SPRAY 16 GM NS SCH ×2 (09:40→22:08)
[2020-09-18] MEDS: [UNRECOGNIZED DRUG - OTHER] SCH ×3 (09:40→22:08)
[2020-09-18] MEDS: OXYBUTYNIN CHLORIDE 5 MG TABLET PO SCH ×2 (09:41→22:09)
[2020-09-18] MEDS: DOCUSATE SODIUM 100 MG/10 ML UDC PO SCH ×2 (09:41→22:08)
[2020-09-18] MEDS: hydrALAZINE HCL 25 MG TABLET PO SCH ×2 (09:41→22:08)
[2020-09-18] MEDS: APIXABAN 2.5 MG TABLET PO SCH ×2 (09:42→21:00)
[2020-09-18] MEDS: ATORVASTATIN 10 MG TABLET PO SCH (09:43)
[2020-09-18] MEDS: NIFEdipine 30 MG TAB.ER.24 PO SCH ×2 (09:43→22:10)
[2020-09-18] MEDS: glipiZIDE XL 5 MG TAB ( GLUCOTROL XL) PO SCH (09:43)
[2020-09-18] MEDS: FERROUS SULFATE 325 MG TABLET.DR PO SCH (09:43)
[2020-09-18] MEDS: METOPROLOL TARTRATE 25 MG TABLET PO SCH ×2 (09:43→22:09)
[2020-09-18] MEDS: POLYETHYLENE GLYCOL 3350, 17 GM/ POWD.PACK PO SCH (09:43)
[2020-09-18] MEDS: calcitrioL 0.25 MCG CAPSULE PO SCH (09:44)
[2020-09-18 11:07] LABS: ANTI NUCLEAR AB WITH REFLEX Negative (Negative)
[2020-09-18 11:41] VITALS: BP_SYST 116
[2020-09-18 12:00] LABS: FERRITIN 502 ng/mL (30-400)
[2020-09-18 12:10] VITALS: BP_SYST 127
[2020-09-18 16:19] VITALS: BP_SYST 106
[2020-09-18 20:00] VITALS: BP_SYST 134
[2020-09-18] MEDS: TERAZOSIN HCL 1 MG CAPSULE (HYTRIN) PO SCH (22:09)
[2020-09-18] MEDS: traZODone HCL 50 MG TABLET (DESYREL) PO SCH (22:09)
[2020-09-19] VITALS (7 sets, daily range): BP systolic 106–154
[2020-09-19] MEDS: ALBUTEROL MDI INHALATION 8 GM INH INH SCH ×5 (03:00→20:42)
[2020-09-19] MEDS: ACETAMINOPHEN 650 MG/20.3 ML UDC GT PRN (03:40)
[2020-09-19] MEDS: cloNIDine HCL 0.1 MG TABLET PO SCH ×4 (06:27→17:47)
[2020-09-19] MEDS: INSULIN GLARGINE 100 UNITS/ML 10 ML VIAL SQ SCH (07:10)
[2020-09-19 07:51] LABS: BASOPHILS % (AUTO) 0.7 % (0.0-2.0); EOSINOPHILS # (AUTO) 0.2 K/uL (0.0-0.4); EOSINOPHILS % (AUTO) 3.5 % (0.0-4.0); HEMATOCRIT 25.5 % (36-54); HEMOGLOBIN 8.6 g/dL (14.0-18.0); LYMPHOCYTES % (AUTO) 19.6 % (20.5-51.5); MEAN CORPUSCULAR HEMOGLOBIN 29 pg (27-31); MEAN CORPUSCULAR HGB CONC 34 % (32-36); MEAN CORPUSCULAR VOLUME 85 fL (79.0-98.0); MONOCYTES # (AUTO) 0.6 K/uL (0.0-1.0); MONOCYTES % (AUTO) 11.8 % (1.7-9.3); NEUTROPHILS # (AUTO) 3.2 K/uL (1.8-7.7); NEUTROPHILS % (AUTO) 64.4 % (40.0-70.0); PLATELET COUNT (AUTO) 230 K/uL (130-430); RED CELL DISTRIBUTION WIDTH 14.7 % (9.0-15.0)
[2020-09-19 07:53] LABS: ALANINE AMINOTRANSFERASE 21 U/L (12-78); ALBUMIN 2.1 g/dL (3.4-4.8); ANION GAP 9 (5-15); ASPARTATE AMINOTRANSFERASE 19 U/L (10-37); CALCIUM 8.8 mg/dL (8.4-11.0); CHLORIDE 104 mmol/L (98-107); CREATININE 6.53 mg/dL (0.55-1.30); GLUCOSE 94 mg/dL (70-99); PHOSPHORUS 4.6 mg/dL (2.7-4.5); POTASSIUM 3.9 mmol/L (3.5-5.1); SODIUM SERUM 140 mmol/L (136-145); TOTAL BILIRUBIN 0.2 mg/dL (0.0-1.0); UREA NITROGEN, BLOOD 55 mg/dL (8-21)
[2020-09-19] MEDS ORDERED: SPIRONOLACTONE 25 MG TABLET (ALDACTONE) ONE (08:16)
[2020-09-19] MEDS ORDERED: NIFEdipine 30 MG TAB.ER.24 PO ONE (08:21)
[2020-09-19] MEDS: SENNA 8.8 MG/5 ML UDC GT SCH (08:38)
[2020-09-19] MEDS: NIFEdipine 30 MG TAB.ER.24 PO SCH ×2 (08:39→22:19)
[2020-09-19] MEDS: hydrALAZINE HCL 25 MG TABLET PO SCH ×2 (08:39→22:18)
[2020-09-19] MEDS: DOCUSATE SODIUM 100 MG/10 ML UDC PO SCH ×2 (08:39→22:18)
[2020-09-19] MEDS: ATORVASTATIN 10 MG TABLET PO SCH (08:40)
[2020-09-19] MEDS: SPIRONOLACTONE 25 MG TABLET (ALDACTONE) PO SCH (08:40)
[2020-09-19] MEDS: glipiZIDE XL 5 MG TAB ( GLUCOTROL XL) PO SCH (08:40)
[2020-09-19] MEDS: OXYBUTYNIN CHLORIDE 5 MG TABLET PO SCH ×2 (08:40→22:18)
[2020-09-19] MEDS: calcitrioL 0.25 MCG CAPSULE PO SCH (08:40)
[2020-09-19] MEDS: FLUTICASONE PROPIONATE 50 mCg/SPRAY 16 GM NS SCH ×2 (08:41→22:17)
[2020-09-19] MEDS: PANTOPRAZOLE SODIUM 40 MG/VIAL (PROTONIX) IVP SCH ×2 (08:41→22:17)
[2020-09-19] MEDS: FERROUS SULFATE 325 MG TABLET.DR PO SCH (08:41)
[2020-09-19] MEDS: METOPROLOL TARTRATE 25 MG TABLET PO SCH ×2 (08:41→22:19)
[2020-09-19] MEDS: [UNRECOGNIZED DRUG - OTHER] SCH ×3 (08:42→22:17)
[2020-09-19] MEDS: POLYETHYLENE GLYCOL 3350, 17 GM/ POWD.PACK PO SCH (08:44)
[2020-09-19] MEDS: APIXABAN 2.5 MG TABLET PO SCH ×2 (08:56→22:23)
[2020-09-19] MEDS ORDERED: COMMUNICATION ORDER XX ONE (12:00)
[2020-09-19] MEDS ORDERED: HEPARIN SODIUM,PORCINE 5,000 UNITS/ML VIAL MC ONE (12:15)
[2020-09-19] MEDS: TERAZOSIN HCL 1 MG CAPSULE (HYTRIN) PO SCH (22:18)
[2020-09-19] MEDS: traZODone HCL 50 MG TABLET (DESYREL) PO SCH (22:18)
[2020-09-20] VITALS: BP_SYST 146
[2020-09-20] MEDS: ALBUTEROL MDI INHALATION 8 GM INH INH SCH ×6 (00:08→19:18)
[2020-09-20] MEDS: cloNIDine HCL 0.1 MG TABLET PO SCH ×4 (01:26→17:31)
[2020-09-20] MEDS: INSULIN GLARGINE 100 UNITS/ML 10 ML VIAL SQ SCH (07:00)
[2020-09-20 07:23] LABS: BASOPHILS # (AUTO) 0.1 K/uL (0.0-0.2); BASOPHILS % (AUTO) 1.2 % (0.0-2.0); EOSINOPHILS # (AUTO) 0.2 K/uL (0.0-0.4); EOSINOPHILS % (AUTO) 4.7 % (0.0-4.0); HEMATOCRIT 26.1 % (36-54); HEMOGLOBIN 8.8 g/dL (14.0-18.0); LYMPHOCYTES # (AUTO) 0.9 K/uL (1.0-5.5); LYMPHOCYTES % (AUTO) 20.6 % (20.5-51.5); MEAN CORPUSCULAR HEMOGLOBIN 29 pg (27-31); MEAN CORPUSCULAR HGB CONC 34 % (32-36); MEAN CORPUSCULAR VOLUME 85 fL (79.0-98.0); MONOCYTES # (AUTO) 0.5 K/uL (0.0-1.0); MONOCYTES % (AUTO) 10.8 % (1.7-9.3); NEUTROPHILS # (AUTO) 2.8 K/uL (1.8-7.7); NEUTROPHILS % (AUTO) 62.7 % (40.0-70.0); PLATELET COUNT (AUTO) 231 K/uL (130-430); RED BLOOD CELL COUNT(AUTO) 3.07 MIL/uL (4.2-6.2); RED CELL DISTRIBUTION WIDTH 14.9 % (9.0-15.0); WHITE BLOOD COUNT (AUTO) 4.4 K/uL (4.8-10.8)
[2020-09-20 07:34] LABS: ANION GAP 12 (5-15); CALCIUM 8.6 mg/dL (8.4-11.0); CHLORIDE 102 mmol/L (98-107); CREATININE 5.58 mg/dL (0.55-1.30); GLUCOSE 97 mg/dL (70-99); PHOSPHORUS 3.7 mg/dL (2.7-4.5); POTASSIUM 3.6 mmol/L (3.5-5.1); SODIUM SERUM 140 mmol/L (136-145); UREA NITROGEN, BLOOD 40 mg/dL (8-21)
[2020-09-20 07:55] VITALS: BP_SYST 135
[2020-09-20] MEDS: glipiZIDE XL 5 MG TAB ( GLUCOTROL XL) PO SCH (09:00)
[2020-09-20] MEDS: METOPROLOL TARTRATE 25 MG TABLET PO SCH ×2 (09:00→21:00)
[2020-09-20] MEDS: FERROUS SULFATE 325 MG TABLET.DR PO SCH (09:53)
[2020-09-20] MEDS: POLYETHYLENE GLYCOL 3350, 17 GM/ POWD.PACK PO SCH (09:53)
[2020-09-20] MEDS: DOCUSATE SODIUM 100 MG/10 ML UDC PO SCH ×2 (09:54→21:07)
[2020-09-20] MEDS: SENNA 8.8 MG/5 ML UDC GT SCH (09:54)
[2020-09-20] MEDS: PANTOPRAZOLE SODIUM 40 MG/VIAL (PROTONIX) IVP SCH ×2 (09:54→21:07)
[2020-09-20] MEDS: FLUTICASONE PROPIONATE 50 mCg/SPRAY 16 GM NS SCH ×2 (09:54→21:07)
[2020-09-20] MEDS: [UNRECOGNIZED DRUG - OTHER] SCH ×3 (09:54→21:07)
[2020-09-20] MEDS: OXYBUTYNIN CHLORIDE 5 MG TABLET PO SCH ×2 (09:54→21:07)
[2020-09-20] MEDS: calcitrioL 0.25 MCG CAPSULE PO SCH (09:55)
[2020-09-20] MEDS: APIXABAN 2.5 MG TABLET PO SCH ×2 (09:57→21:08)
[2020-09-20] MEDS: ATORVASTATIN 10 MG TABLET PO SCH (09:58)
[2020-09-20] MEDS: hydrALAZINE HCL 25 MG TABLET PO SCH ×2 (10:03→21:07)
[2020-09-20] MEDS: NIFEdipine 30 MG TAB.ER.24 PO SCH ×2 (10:06→21:08)
[2020-09-20] MEDS ORDERED: SPIRONOLACTONE 25 MG TABLET (ALDACTONE) PO ONE (10:15)
[2020-09-20 11:02] VITALS: BP_SYST 149
[2020-09-20 12:34] VITALS: BP_SYST 148
[2020-09-20] MEDS: INSULIN REGULAR, HUMAN 100 UNITS/ML, 10 ML VIAL (humuLIN R) SUBCUT PRN ×2 (12:34→17:33)
[2020-09-20 17:09] VITALS: BP_SYST 156
[2020-09-20 20:00] VITALS: BP_SYST 154
[2020-09-20] MEDS: traZODone HCL 50 MG TABLET (DESYREL) PO SCH (21:07)
[2020-09-20] MEDS: TERAZOSIN HCL 1 MG CAPSULE (HYTRIN) PO SCH (21:07)
[2020-09-21] VITALS: BP_SYST 146
[2020-09-21] MEDS: cloNIDine HCL 0.1 MG TABLET PO SCH ×6 (00:19→23:30)
[2020-09-21] MEDS: INSULIN GLARGINE 100 UNITS/ML 10 ML VIAL SQ SCH (06:54)
[2020-09-21] MEDS: ALBUTEROL MDI INHALATION 8 GM INH INH SCH (07:00)
[2020-09-21 07:48] LABS: BASOPHILS % (AUTO) 0.8 % (0.0-2.0); EOSINOPHILS # (AUTO) 0.2 K/uL (0.0-0.4); EOSINOPHILS % (AUTO) 4.3 % (0.0-4.0); HEMATOCRIT 27.2 % (36-54); HEMOGLOBIN 9.1 g/dL (14.0-18.0); LYMPHOCYTES # (AUTO) 1.1 K/uL (1.0-5.5); LYMPHOCYTES % (AUTO) 22.4 % (20.5-51.5); MEAN CORPUSCULAR HEMOGLOBIN 28 pg (27-31); MEAN CORPUSCULAR HGB CONC 33 % (32-36); MEAN CORPUSCULAR VOLUME 85 fL (79.0-98.0); MONOCYTES # (AUTO) 0.5 K/uL (0.0-1.0); MONOCYTES % (AUTO) 10.6 % (1.7-9.3); NEUTROPHILS # (AUTO) 3.2 K/uL (1.8-7.7); NEUTROPHILS % (AUTO) 61.9 % (40.0-70.0); PLATELET COUNT (AUTO) 263 K/uL (130-430); RED BLOOD CELL COUNT(AUTO) 3.21 MIL/uL (4.2-6.2); RED CELL DISTRIBUTION WIDTH 14.8 % (9.0-15.0); WHITE BLOOD COUNT (AUTO) 5.1 K/uL (4.8-10.8)
[2020-09-21 08:10] LABS: ALANINE AMINOTRANSFERASE 17 U/L (12-78); ALBUMIN 2.2 g/dL (3.4-4.8); ANION GAP 12 (5-15); ASPARTATE AMINOTRANSFERASE 17 U/L (10-37); CHLORIDE 101 mmol/L (98-107); CREATININE 5.96 mg/dL (0.55-1.30); GLUCOSE 108 mg/dL (70-99); SODIUM SERUM 138 mmol/L (136-145); TOTAL BILIRUBIN 0.3 mg/dL (0.0-1.0); UREA NITROGEN, BLOOD 46 mg/dL (8-21)
[2020-09-21] MEDS ORDERED: SPIRONOLACTONE 25 MG TABLET (ALDACTONE) PO SCH (09:00)
[2020-09-21 09:50] VITALS: BP_SYST 134
[2020-09-21] MEDS: [UNRECOGNIZED DRUG - OTHER] SCH ×3 (10:01→21:15)
[2020-09-21] MEDS: SENNA 8.8 MG/5 ML UDC GT SCH (10:01)
[2020-09-21] MEDS: PANTOPRAZOLE SODIUM 40 MG/VIAL (PROTONIX) IVP SCH ×2 (10:01→21:15)
[2020-09-21] MEDS: FLUTICASONE PROPIONATE 50 mCg/SPRAY 16 GM NS SCH ×2 (10:01→21:15)
[2020-09-21] MEDS: hydrALAZINE HCL 25 MG TABLET PO SCH ×2 (10:02→21:15)
[2020-09-21] MEDS: DOCUSATE SODIUM 100 MG/10 ML UDC PO SCH ×2 (10:03→21:15)
[2020-09-21] MEDS: FERROUS SULFATE 325 MG TABLET.DR PO SCH (10:03)
[2020-09-21] MEDS: OXYBUTYNIN CHLORIDE 5 MG TABLET PO SCH ×2 (10:03→21:15)
[2020-09-21] MEDS: ATORVASTATIN 10 MG TABLET PO SCH (10:03)
[2020-09-21] MEDS: glipiZIDE XL 5 MG TAB ( GLUCOTROL XL) PO SCH (10:03)
[2020-09-21] MEDS: POLYETHYLENE GLYCOL 3350, 17 GM/ POWD.PACK PO SCH (10:04)
[2020-09-21] MEDS: NIFEdipine 30 MG TAB.ER.24 PO SCH ×2 (10:04→21:15)
[2020-09-21] MEDS: APIXABAN 2.5 MG TABLET PO SCH ×2 (10:04→21:15)
[2020-09-21] MEDS: METOPROLOL TARTRATE 25 MG TABLET PO SCH ×2 (10:04→21:15)
[2020-09-21] MEDS: calcitrioL 0.25 MCG CAPSULE PO SCH (10:04)
[2020-09-21 12:17] VITALS: BP_SYST 120
[2020-09-21] MEDS: INSULIN REGULAR, HUMAN 100 UNITS/ML, 10 ML VIAL (humuLIN R) SUBCUT PRN (12:17)
[2020-09-21] MEDS ORDERED: HEPARIN SODIUM,PORCINE 5,000 UNITS/ML VIAL MC ONE (13:00)
[2020-09-21] MEDS ORDERED: HEPARIN SODIUM,PORCINE 5,000 UNITS/ML VIAL MC PRN (13:15)
[2020-09-21] MEDS ORDERED: HEPARIN SODIUM,PORCINE 5,000 UNITS/ML VIAL ONE (13:55)
[2020-09-21 16:17] VITALS: BP_SYST 128
[2020-09-21 18:29] VITALS: BP_SYST 150
[2020-09-21 20:00] VITALS: BP_SYST 161
[2020-09-21] MEDS: TERAZOSIN HCL 1 MG CAPSULE (HYTRIN) PO SCH (21:15)
[2020-09-21] MEDS: traZODone HCL 50 MG TABLET (DESYREL) PO SCH (21:15)
[2020-09-22] VITALS: BP_SYST 130
[2020-09-22] MEDS: INSULIN GLARGINE 100 UNITS/ML 10 ML VIAL SQ SCH (06:32)
[2020-09-22] MEDS: cloNIDine HCL 0.1 MG TABLET PO SCH ×3 (06:33→17:13)
[2020-09-22] MEDS: ALBUTEROL MDI INHALATION 8 GM INH INH SCH ×4 (08:14→20:22)
[2020-09-22 08:27] VITALS: BP_SYST 131
[2020-09-22 08:28] LABS: BASOPHILS % (AUTO) 0.8 % (0.0-2.0); EOSINOPHILS # (AUTO) 0.1 K/uL (0.0-0.4); HEMATOCRIT 27.5 % (36-54); HEMOGLOBIN 9.4 g/dL (14.0-18.0); LYMPHOCYTES # (AUTO) 1.4 K/uL (1.0-5.5); LYMPHOCYTES % (AUTO) 23.5 % (20.5-51.5); MEAN CORPUSCULAR HEMOGLOBIN 29 pg (27-31); MEAN CORPUSCULAR HGB CONC 34 % (32-36); MEAN CORPUSCULAR VOLUME 85 fL (79.0-98.0); MONOCYTES # (AUTO) 0.6 K/uL (0.0-1.0); MONOCYTES % (AUTO) 11.1 % (1.7-9.3); NEUTROPHILS # (AUTO) 3.7 K/uL (1.8-7.7); NEUTROPHILS % (AUTO) 62.6 % (40.0-70.0); PLATELET COUNT (AUTO) 284 K/uL (130-430); RED BLOOD CELL COUNT(AUTO) 3.26 MIL/uL (4.2-6.2); RED CELL DISTRIBUTION WIDTH 14.9 % (9.0-15.0); WHITE BLOOD COUNT (AUTO) 5.8 K/uL (4.8-10.8)
[2020-09-22 08:32] LABS: ANION GAP 11 (5-15); CALCIUM 8.9 mg/dL (8.4-11.0); CHLORIDE 100 mmol/L (98-107); CREATININE 5.36 mg/dL (0.55-1.30); GLUCOSE 143 mg/dL (70-99); POTASSIUM 3.9 mmol/L (3.5-5.1); SODIUM SERUM 138 mmol/L (136-145); UREA NITROGEN, BLOOD 36 mg/dL (8-21)
[2020-09-22] MEDS: PANTOPRAZOLE SODIUM 40 MG/VIAL (PROTONIX) IVP SCH ×2 (08:52→21:30)
[2020-09-22] MEDS: OXYBUTYNIN CHLORIDE 5 MG TABLET PO SCH ×2 (08:54→21:30)
[2020-09-22] MEDS: DOCUSATE SODIUM 100 MG/10 ML UDC PO SCH ×2 (08:54→21:30)
[2020-09-22] MEDS: hydrALAZINE HCL 25 MG TABLET PO SCH ×2 (08:54→21:30)
[2020-09-22] MEDS: APIXABAN 2.5 MG TABLET PO SCH ×2 (08:55→21:30)
[2020-09-22] MEDS: FERROUS SULFATE 325 MG TABLET.DR PO SCH (08:55)
[2020-09-22] MEDS: glipiZIDE XL 5 MG TAB ( GLUCOTROL XL) PO SCH (08:55)
[2020-09-22] MEDS: POLYETHYLENE GLYCOL 3350, 17 GM/ POWD.PACK PO SCH (08:56)
[2020-09-22] MEDS: METOPROLOL TARTRATE 25 MG TABLET PO SCH ×2 (08:56→21:30)
[2020-09-22] MEDS: ATORVASTATIN 10 MG TABLET PO SCH (08:56)
[2020-09-22] MEDS: NIFEdipine 30 MG TAB.ER.24 PO SCH ×2 (08:56→21:30)
[2020-09-22] MEDS: calcitrioL 0.25 MCG CAPSULE PO SCH (08:57)
[2020-09-22] MEDS: SENNA 8.8 MG/5 ML UDC GT SCH (08:57)
[2020-09-22] MEDS: FLUTICASONE PROPIONATE 50 mCg/SPRAY 16 GM NS SCH ×2 (09:59→21:30)
[2020-09-22] MEDS: [UNRECOGNIZED DRUG - OTHER] SCH ×3 (09:59→21:30)
[2020-09-22] MEDS: INSULIN REGULAR, HUMAN 100 UNITS/ML, 10 ML VIAL (humuLIN R) SUBCUT PRN ×2 (11:38→17:17)
[2020-09-22] MEDS: ONDANSETRON HCL 4 MG/2 ML VIAL IVP PRN (11:45)
[2020-09-22 13:03] VITALS: BP_SYST 157
[2020-09-22 16:27] VITALS: BP_SYST 127
[2020-09-22 20:00] VITALS: BP_SYST 130
[2020-09-22] MEDS: traZODone HCL 50 MG TABLET (DESYREL) PO SCH (21:30)
[2020-09-22] MEDS: TERAZOSIN HCL 1 MG CAPSULE (HYTRIN) PO SCH (21:30)
[2020-09-23] VITALS (8 sets, daily range): BP systolic 105–156
[2020-09-23] MEDS: ALBUTEROL MDI INHALATION 8 GM INH INH SCH ×5 (00:16→23:43)
[2020-09-23] MEDS: cloNIDine HCL 0.1 MG TABLET PO SCH ×4 (00:30→18:23)
[2020-09-23] MEDS: INSULIN GLARGINE 100 UNITS/ML 10 ML VIAL SQ SCH (06:06)
[2020-09-23 07:46] LABS: BASOPHILS % (AUTO) 0.6 % (0.0-2.0); EOSINOPHILS # (AUTO) 0.2 K/uL (0.0-0.4); EOSINOPHILS % (AUTO) 2.9 % (0.0-4.0); HEMATOCRIT 24.8 % (36-54); HEMOGLOBIN 8.5 g/dL (14.0-18.0); LYMPHOCYTES # (AUTO) 1.3 K/uL (1.0-5.5); LYMPHOCYTES % (AUTO) 19.2 % (20.5-51.5); MEAN CORPUSCULAR HEMOGLOBIN 29 pg (27-31); MEAN CORPUSCULAR HGB CONC 34 % (32-36); MEAN CORPUSCULAR VOLUME 85 fL (79.0-98.0); MONOCYTES # (AUTO) 0.7 K/uL (0.0-1.0); MONOCYTES % (AUTO) 10.3 % (1.7-9.3); NEUTROPHILS # (AUTO) 4.6 K/uL (1.8-7.7); PLATELET COUNT (AUTO) 285 K/uL (130-430); RED BLOOD CELL COUNT(AUTO) 2.93 MIL/uL (4.2-6.2); RED CELL DISTRIBUTION WIDTH 14.8 % (9.0-15.0); WHITE BLOOD COUNT (AUTO) 6.8 K/uL (4.8-10.8)
[2020-09-23 08:57] LABS: ANION GAP 10 (5-15); CALCIUM 9.1 mg/dL (8.4-11.0); CHLORIDE 100 mmol/L (98-107); CREATININE 6.43 mg/dL (0.55-1.30); GLUCOSE 106 mg/dL (70-99); PHOSPHORUS 4.4 mg/dL (2.7-4.5); SODIUM SERUM 137 mmol/L (136-145); UREA NITROGEN, BLOOD 48 mg/dL (8-21)
[2020-09-23] MEDS: METOPROLOL TARTRATE 25 MG TABLET PO SCH ×2 (09:00→22:46)
[2020-09-23] MEDS: DOCUSATE SODIUM 100 MG/10 ML UDC PO SCH ×2 (09:00→21:00)
[2020-09-23] MEDS: SENNA 8.8 MG/5 ML UDC GT SCH (09:00)
[2020-09-23] MEDS: hydrALAZINE HCL 25 MG TABLET PO SCH ×2 (09:00→22:48)
[2020-09-23] MEDS: NIFEdipine 30 MG TAB.ER.24 PO SCH ×2 (09:00→22:47)
[2020-09-23] MEDS: POLYETHYLENE GLYCOL 3350, 17 GM/ POWD.PACK PO SCH (09:00)
[2020-09-23] MEDS: OXYBUTYNIN CHLORIDE 5 MG TABLET PO SCH ×2 (10:13→22:45)
[2020-09-23] MEDS: APIXABAN 2.5 MG TABLET PO SCH ×2 (10:13→22:49)
[2020-09-23] MEDS: [UNRECOGNIZED DRUG - OTHER] SCH ×3 (10:13→22:42)
[2020-09-23] MEDS: FLUTICASONE PROPIONATE 50 mCg/SPRAY 16 GM NS SCH ×2 (10:13→22:42)
[2020-09-23] MEDS: PANTOPRAZOLE SODIUM 40 MG/VIAL (PROTONIX) IVP SCH ×2 (10:13→22:42)
[2020-09-23] MEDS: glipiZIDE XL 5 MG TAB ( GLUCOTROL XL) PO SCH (10:14)
[2020-09-23] MEDS: calcitrioL 0.25 MCG CAPSULE PO SCH (10:14)
[2020-09-23] MEDS: FERROUS SULFATE 325 MG TABLET.DR PO SCH (10:14)
[2020-09-23] MEDS: ATORVASTATIN 10 MG TABLET PO SCH (10:14)
[2020-09-23] MEDS ORDERED: cloNIDine HCL 0.1 MG TABLET ONE ×2 (11:04→17:09)
[2020-09-23] MEDS: INSULIN REGULAR, HUMAN 100 UNITS/ML, 10 ML VIAL (humuLIN R) SUBCUT PRN (11:30)
[2020-09-23 14:04] LABS: HAPTOGLOBIN 430 mg/dL (34-355)
[2020-09-23] MEDS: traZODone HCL 50 MG TABLET (DESYREL) PO SCH (22:45)
[2020-09-23] MEDS: TERAZOSIN HCL 1 MG CAPSULE (HYTRIN) PO SCH (22:46)
[2020-09-24] MEDS: ALBUTEROL MDI INHALATION 8 GM INH INH SCH ×4 (02:40→16:22)
[2020-09-24 05:45] VITALS: BP_SYST 147
[2020-09-24] MEDS: cloNIDine HCL 0.1 MG TABLET PO SCH ×4 (05:46→17:00)
[2020-09-24] MEDS: INSULIN GLARGINE 100 UNITS/ML 10 ML VIAL SQ SCH (06:46)
[2020-09-24 08:00] VITALS: BP_SYST 137
[2020-09-24 08:42] LABS: BASOPHILS % (AUTO) 0.4 % (0.0-2.0); EOSINOPHILS # (AUTO) 0.2 K/uL (0.0-0.4); EOSINOPHILS % (AUTO) 3.5 % (0.0-4.0); LYMPHOCYTES # (AUTO) 1.3 K/uL (1.0-5.5); LYMPHOCYTES % (AUTO) 19.5 % (20.5-51.5); MEAN CORPUSCULAR HEMOGLOBIN 29 pg (27-31); MEAN CORPUSCULAR HGB CONC 35 % (32-36); MEAN CORPUSCULAR VOLUME 84 fL (79.0-98.0); MONOCYTES # (AUTO) 0.6 K/uL (0.0-1.0); NEUTROPHILS # (AUTO) 4.6 K/uL (1.8-7.7); NEUTROPHILS % (AUTO) 67.6 % (40.0-70.0); PLATELET COUNT (AUTO) 307 K/uL (130-430); RED BLOOD CELL COUNT(AUTO) 3.08 MIL/uL (4.2-6.2); RED CELL DISTRIBUTION WIDTH 14.5 % (9.0-15.0); WHITE BLOOD COUNT (AUTO) 6.8 K/uL (4.8-10.8)
[2020-09-24] MEDS: NIFEdipine 30 MG TAB.ER.24 PO SCH ×2 (09:00→21:45)
[2020-09-24] MEDS: POLYETHYLENE GLYCOL 3350, 17 GM/ POWD.PACK PO SCH (09:00)
[2020-09-24] MEDS: SENNA 8.8 MG/5 ML UDC GT SCH (09:00)
[2020-09-24] MEDS: DOCUSATE SODIUM 100 MG/10 ML UDC PO SCH ×2 (09:00→21:43)
[2020-09-24] MEDS: hydrALAZINE HCL 25 MG TABLET PO SCH ×2 (09:00→21:43)
[2020-09-24 09:20] LABS: ALANINE AMINOTRANSFERASE 15 U/L (12-78); ALBUMIN 2.3 g/dL (3.4-4.8); ANION GAP 10 (5-15); ASPARTATE AMINOTRANSFERASE 18 U/L (10-37); CALCIUM 9.1 mg/dL (8.4-11.0); CHLORIDE 101 mmol/L (98-107); CREATININE 7.15 mg/dL (0.55-1.30); GLUCOSE 102 mg/dL (70-99); PHOSPHORUS 4.8 mg/dL (2.7-4.5); POTASSIUM 4.2 mmol/L (3.5-5.1); SODIUM SERUM 138 mmol/L (136-145); TOTAL BILIRUBIN 0.3 mg/dL (0.0-1.0); UREA NITROGEN, BLOOD 55 mg/dL (8-21)
[2020-09-24] MEDS: glipiZIDE XL 5 MG TAB ( GLUCOTROL XL) PO SCH (09:28)
[2020-09-24] MEDS: FLUTICASONE PROPIONATE 50 mCg/SPRAY 16 GM NS SCH ×2 (09:28→21:43)
[2020-09-24] MEDS: calcitrioL 0.25 MCG CAPSULE PO SCH (09:28)
[2020-09-24] MEDS: OXYBUTYNIN CHLORIDE 5 MG TABLET PO SCH ×2 (09:28→21:43)
[2020-09-24] MEDS: FERROUS SULFATE 325 MG TABLET.DR PO SCH (09:28)
[2020-09-24] MEDS: PANTOPRAZOLE SODIUM 40 MG/VIAL (PROTONIX) IVP SCH ×2 (09:28→21:42)
[2020-09-24] MEDS: APIXABAN 2.5 MG TABLET PO SCH ×2 (09:28→21:46)
[2020-09-24] MEDS: [UNRECOGNIZED DRUG - OTHER] SCH ×3 (09:28→21:42)
[2020-09-24] MEDS: ATORVASTATIN 10 MG TABLET PO SCH (09:28)
[2020-09-24] MEDS: METOPROLOL TARTRATE 25 MG TABLET PO SCH ×2 (09:29→21:44)
[2020-09-24 12:00] VITALS: BP_SYST 147
[2020-09-24 16:00] VITALS: BP_SYST 161
[2020-09-24 20:00] VITALS: BP_SYST 151
[2020-09-24] MEDS: TERAZOSIN HCL 1 MG CAPSULE (HYTRIN) PO SCH (21:43)
[2020-09-24] MEDS: traZODone HCL 50 MG TABLET (DESYREL) PO SCH (21:43)
[2020-09-25 06:52] LABS: BASOPHILS # (AUTO) 0.1 K/uL (0.0-0.2); BASOPHILS % (AUTO) 0.8 % (0.0-2.0); EOSINOPHILS # (AUTO) 0.2 K/uL (0.0-0.4); EOSINOPHILS % (AUTO) 2.2 % (0.0-4.0); HEMATOCRIT 26.6 % (36-54); HEMOGLOBIN 9.1 g/dL (14.0-18.0); LYMPHOCYTES # (AUTO) 1.3 K/uL (1.0-5.5); LYMPHOCYTES % (AUTO) 16.1 % (20.5-51.5); MEAN CORPUSCULAR HEMOGLOBIN 29 pg (27-31); MEAN CORPUSCULAR HGB CONC 34 % (32-36); MEAN CORPUSCULAR VOLUME 84 fL (79.0-98.0); MONOCYTES # (AUTO) 0.9 K/uL (0.0-1.0); MONOCYTES % (AUTO) 10.2 % (1.7-9.3); NEUTROPHILS # (AUTO) 5.9 K/uL (1.8-7.7); NEUTROPHILS % (AUTO) 70.7 % (40.0-70.0); PLATELET COUNT (AUTO) 316 K/uL (130-430); RED BLOOD CELL COUNT(AUTO) 3.17 MIL/uL (4.2-6.2); RED CELL DISTRIBUTION WIDTH 14.7 % (9.0-15.0); WHITE BLOOD COUNT (AUTO) 8.3 K/uL (4.8-10.8)
[2020-09-25] MEDS: cloNIDine HCL 0.1 MG TABLET PO SCH ×4 (07:01→17:59)
[2020-09-25] MEDS: ACETAMINOPHEN 650 MG/20.3 ML UDC GT PRN ×2 (07:02→11:14)
[2020-09-25] MEDS: INSULIN GLARGINE 100 UNITS/ML 10 ML VIAL SQ SCH (07:09)
[2020-09-25 07:23] LABS: ANION GAP 5 (5-15); CHLORIDE 100 mmol/L (98-107); CREATININE 5.31 mg/dL (0.55-1.30); GLUCOSE 113 mg/dL (70-99); PHOSPHORUS 4.1 mg/dL (2.7-4.5); POTASSIUM 3.8 mmol/L (3.5-5.1); SODIUM SERUM 134 mmol/L (136-145); UREA NITROGEN, BLOOD 39 mg/dL (8-21)
[2020-09-25] MEDS: ALBUTEROL MDI INHALATION 8 GM INH INH SCH ×4 (07:45→20:20)
[2020-09-25 08:00] VITALS: BP_SYST 138
[2020-09-25] MEDS: PANTOPRAZOLE SODIUM 40 MG/VIAL (PROTONIX) IVP SCH ×2 (09:00→22:06)
[2020-09-25] MEDS: SENNA 8.8 MG/5 ML UDC GT SCH (09:00)
[2020-09-25] MEDS: FERROUS SULFATE 325 MG TABLET.DR PO SCH (09:00)
[2020-09-25] MEDS: POLYETHYLENE GLYCOL 3350, 17 GM/ POWD.PACK PO SCH (09:00)
[2020-09-25] MEDS: FLUTICASONE PROPIONATE 50 mCg/SPRAY 16 GM NS SCH ×2 (09:00→22:07)
[2020-09-25] MEDS: NIFEdipine 30 MG TAB.ER.24 PO SCH ×2 (09:00→22:08)
[2020-09-25] MEDS: calcitrioL 0.25 MCG CAPSULE PO SCH (09:00)
[2020-09-25] MEDS: DOCUSATE SODIUM 100 MG/10 ML UDC PO SCH ×2 (09:00→22:07)
[2020-09-25] MEDS: METOPROLOL TARTRATE 25 MG TABLET PO SCH ×2 (09:00→22:11)
[2020-09-25] MEDS: OXYBUTYNIN CHLORIDE 5 MG TABLET PO SCH ×2 (09:00→22:07)
[2020-09-25] MEDS: [UNRECOGNIZED DRUG - OTHER] SCH ×3 (09:00→22:06)
[2020-09-25] MEDS: APIXABAN 2.5 MG TABLET PO SCH ×2 (09:00→22:27)
[2020-09-25] MEDS: hydrALAZINE HCL 25 MG TABLET PO SCH ×2 (09:00→22:11)
[2020-09-25] MEDS: glipiZIDE XL 5 MG TAB ( GLUCOTROL XL) PO SCH (09:00)
[2020-09-25] MEDS: ATORVASTATIN 10 MG TABLET PO SCH (09:00)
[2020-09-25 12:20] VITALS: BP_SYST 97
[2020-09-25 17:58] VITALS: BP_SYST 162
[2020-09-25 20:10] VITALS: BP_SYST 151
[2020-09-25] MEDS: traZODone HCL 50 MG TABLET (DESYREL) PO SCH (22:07)
[2020-09-25] MEDS: TERAZOSIN HCL 1 MG CAPSULE (HYTRIN) PO SCH (22:11)
[2020-09-26] VITALS (7 sets, daily range): BP systolic 100–144
[2020-09-26] MEDS: ALBUTEROL MDI INHALATION 8 GM INH INH SCH ×6 (00:34→23:57)
[2020-09-26 06:35] LABS: BASOPHILS # (AUTO) 0.1 K/uL (0.0-0.2); BASOPHILS % (AUTO) 0.8 % (0.0-2.0); EOSINOPHILS # (AUTO) 0.2 K/uL (0.0-0.4); EOSINOPHILS % (AUTO) 2.1 % (0.0-4.0); HEMATOCRIT 27.6 % (36-54); HEMOGLOBIN 9.3 g/dL (14.0-18.0); LYMPHOCYTES # (AUTO) 1.3 K/uL (1.0-5.5); LYMPHOCYTES % (AUTO) 15.4 % (20.5-51.5); MEAN CORPUSCULAR HEMOGLOBIN 29 pg (27-31); MEAN CORPUSCULAR HGB CONC 34 % (32-36); MEAN CORPUSCULAR VOLUME 85 fL (79.0-98.0); MONOCYTES # (AUTO) 0.8 K/uL (0.0-1.0); MONOCYTES % (AUTO) 10.1 % (1.7-9.3); NEUTROPHILS # (AUTO) 5.9 K/uL (1.8-7.7); NEUTROPHILS % (AUTO) 71.6 % (40.0-70.0); PLATELET COUNT (AUTO) 326 K/uL (130-430); RED BLOOD CELL COUNT(AUTO) 3.24 MIL/uL (4.2-6.2); RED CELL DISTRIBUTION WIDTH 14.9 % (9.0-15.0); WHITE BLOOD COUNT (AUTO) 8.2 K/uL (4.8-10.8)
[2020-09-26] MEDS: cloNIDine HCL 0.1 MG TABLET PO SCH ×5 (06:52→23:10)
[2020-09-26] MEDS: INSULIN GLARGINE 100 UNITS/ML 10 ML VIAL SQ SCH (07:00)
[2020-09-26 07:12] LABS: ALANINE AMINOTRANSFERASE 18 U/L (12-78); ALBUMIN 2.5 g/dL (3.4-4.8); ANION GAP 9 (5-15); ASPARTATE AMINOTRANSFERASE 12 U/L (10-37); CALCIUM 9.2 mg/dL (8.4-11.0); CHLORIDE 101 mmol/L (98-107); CREATININE 6.04 mg/dL (0.55-1.30); GLUCOSE 61 mg/dL (70-99); PHOSPHORUS 4.7 mg/dL (2.7-4.5); POTASSIUM 4.3 mmol/L (3.5-5.1); SODIUM SERUM 140 mmol/L (136-145); TOTAL BILIRUBIN 0.3 mg/dL (0.0-1.0); UREA NITROGEN, BLOOD 43 mg/dL (8-21)
[2020-09-26] MEDS: hydrALAZINE HCL 25 MG TABLET PO SCH ×3 (09:00→21:00)
[2020-09-26] MEDS: METOPROLOL TARTRATE 25 MG TABLET PO SCH ×3 (09:00→21:00)
[2020-09-26] MEDS: [UNRECOGNIZED DRUG - OTHER] SCH ×3 (09:51→21:00)
[2020-09-26] MEDS: PANTOPRAZOLE SODIUM 40 MG/VIAL (PROTONIX) IVP SCH ×2 (09:51→21:00)
[2020-09-26] MEDS: FLUTICASONE PROPIONATE 50 mCg/SPRAY 16 GM NS SCH ×2 (09:51→21:00)
[2020-09-26] MEDS: SENNA 8.8 MG/5 ML UDC GT SCH (09:51)
[2020-09-26] MEDS: DOCUSATE SODIUM 100 MG/10 ML UDC PO SCH ×2 (09:52→21:00)
[2020-09-26] MEDS: OXYBUTYNIN CHLORIDE 5 MG TABLET PO SCH ×2 (09:52→21:00)
[2020-09-26] MEDS: calcitrioL 0.25 MCG CAPSULE PO SCH (09:52)
[2020-09-26] MEDS: ATORVASTATIN 10 MG TABLET PO SCH (09:52)
[2020-09-26] MEDS: NIFEdipine 30 MG TAB.ER.24 PO SCH ×2 (09:52→21:00)
[2020-09-26] MEDS: POLYETHYLENE GLYCOL 3350, 17 GM/ POWD.PACK PO SCH (09:52)
[2020-09-26] MEDS: glipiZIDE XL 5 MG TAB ( GLUCOTROL XL) PO SCH (09:52)
[2020-09-26] MEDS: FERROUS SULFATE 325 MG TABLET.DR PO SCH (09:52)
[2020-09-26] MEDS: APIXABAN 2.5 MG TABLET PO SCH ×2 (10:05→21:00)
[2020-09-26] MEDS: ONDANSETRON HCL 4 MG/2 ML VIAL IVP PRN (11:32)
[2020-09-26] MEDS ORDERED: HEPARIN SODIUM, PORCINE 10,000 UNITS/ 10 ML VIAL IV ONE (12:15)
[2020-09-26] MEDS: TERAZOSIN HCL 1 MG CAPSULE (HYTRIN) PO SCH (21:00)
[2020-09-26] MEDS: traZODone HCL 50 MG TABLET (DESYREL) PO SCH (21:00)
[2020-09-27] VITALS (7 sets, daily range): BP systolic 121–169
[2020-09-27] MEDS: ALBUTEROL MDI INHALATION 8 GM INH INH SCH ×5 (03:00→15:00)
[2020-09-27] MEDS: cloNIDine HCL 0.1 MG TABLET PO SCH ×3 (06:43→18:12)
[2020-09-27] MEDS: INSULIN GLARGINE 100 UNITS/ML 10 ML VIAL SQ SCH (07:00)
[2020-09-27 07:04] LABS: BASOPHILS # (AUTO) 0.1 K/uL (0.0-0.2); BASOPHILS % (AUTO) 1.1 % (0.0-2.0); EOSINOPHILS # (AUTO) 0.2 K/uL (0.0-0.4); EOSINOPHILS % (AUTO) 2.5 % (0.0-4.0); HEMATOCRIT 27.2 % (36-54); HEMOGLOBIN 9.1 g/dL (14.0-18.0); LYMPHOCYTES # (AUTO) 1.3 K/uL (1.0-5.5); LYMPHOCYTES % (AUTO) 16.9 % (20.5-51.5); MEAN CORPUSCULAR HEMOGLOBIN 29 pg (27-31); MEAN CORPUSCULAR HGB CONC 34 % (32-36); MEAN CORPUSCULAR VOLUME 86 fL (79.0-98.0); MONOCYTES # (AUTO) 0.8 K/uL (0.0-1.0); MONOCYTES % (AUTO) 9.9 % (1.7-9.3); NEUTROPHILS # (AUTO) 5.3 K/uL (1.8-7.7); NEUTROPHILS % (AUTO) 69.6 % (40.0-70.0); PLATELET COUNT (AUTO) 292 K/uL (130-430); RED BLOOD CELL COUNT(AUTO) 3.18 MIL/uL (4.2-6.2); RED CELL DISTRIBUTION WIDTH 14.8 % (9.0-15.0); WHITE BLOOD COUNT (AUTO) 7.6 K/uL (4.8-10.8)
[2020-09-27 07:40] LABS: ANION GAP 10 (5-15); CALCIUM 9.3 mg/dL (8.4-11.0); CHLORIDE 101 mmol/L (98-107); CREATININE 5.63 mg/dL (0.55-1.30); GLUCOSE 94 mg/dL (70-99); PHOSPHORUS 4.7 mg/dL (2.7-4.5); POTASSIUM 4.3 mmol/L (3.5-5.1); SODIUM SERUM 140 mmol/L (136-145); UREA NITROGEN, BLOOD 35 mg/dL (8-21)
[2020-09-27] MEDS: APIXABAN 2.5 MG TABLET PO SCH ×2 (09:00→21:24)
[2020-09-27] MEDS: SENNA 8.8 MG/5 ML UDC GT SCH (10:19)
[2020-09-27] MEDS: PANTOPRAZOLE SODIUM 40 MG/VIAL (PROTONIX) IVP SCH ×2 (10:19→21:19)
[2020-09-27] MEDS: [UNRECOGNIZED DRUG - OTHER] SCH ×3 (10:19→21:42)
[2020-09-27] MEDS: hydrALAZINE HCL 25 MG TABLET PO SCH ×2 (10:19→21:20)
[2020-09-27] MEDS: FLUTICASONE PROPIONATE 50 mCg/SPRAY 16 GM NS SCH ×2 (10:19→21:41)
[2020-09-27] MEDS: DOCUSATE SODIUM 100 MG/10 ML UDC PO SCH ×2 (10:20→21:21)
[2020-09-27] MEDS: METOPROLOL TARTRATE 25 MG TABLET PO SCH ×2 (10:20→21:23)
[2020-09-27] MEDS: FERROUS SULFATE 325 MG TABLET.DR PO SCH (10:20)
[2020-09-27] MEDS: ATORVASTATIN 10 MG TABLET PO SCH (10:20)
[2020-09-27] MEDS: OXYBUTYNIN CHLORIDE 5 MG TABLET PO SCH ×2 (10:20→21:21)
[2020-09-27] MEDS: glipiZIDE XL 5 MG TAB ( GLUCOTROL XL) PO SCH (10:20)
[2020-09-27] MEDS: POLYETHYLENE GLYCOL 3350, 17 GM/ POWD.PACK PO SCH (10:21)
[2020-09-27] MEDS: calcitrioL 0.25 MCG CAPSULE PO SCH (10:21)
[2020-09-27] MEDS: NIFEdipine 30 MG TAB.ER.24 PO SCH ×2 (10:21→21:22)
[2020-09-27] MEDS: traZODone HCL 50 MG TABLET (DESYREL) PO SCH (21:21)
[2020-09-27] MEDS: TERAZOSIN HCL 1 MG CAPSULE (HYTRIN) PO SCH (21:34)
[2020-09-28] VITALS (7 sets, daily range): BP systolic 101–153
[2020-09-28] MEDS: cloNIDine HCL 0.1 MG TABLET PO SCH ×4 (00:29→17:16)
[2020-09-28] MEDS: INSULIN GLARGINE 100 UNITS/ML 10 ML VIAL SQ SCH (06:38)
[2020-09-28] MEDS: ALBUTEROL MDI INHALATION 8 GM INH INH SCH ×5 (07:25→19:30)
[2020-09-28 08:20] LABS: BASOPHILS # (AUTO) 0.1 K/uL (0.0-0.2); EOSINOPHILS # (AUTO) 0.3 K/uL (0.0-0.4); EOSINOPHILS % (AUTO) 3.9 % (0.0-4.0); HEMOGLOBIN 8.4 g/dL (14.0-18.0); LYMPHOCYTES # (AUTO) 1.6 K/uL (1.0-5.5); MEAN CORPUSCULAR HEMOGLOBIN 29 pg (27-31); MEAN CORPUSCULAR HGB CONC 34 % (32-36); MEAN CORPUSCULAR VOLUME 85 fL (79.0-98.0); MONOCYTES # (AUTO) 0.7 K/uL (0.0-1.0); MONOCYTES % (AUTO) 9.1 % (1.7-9.3); NEUTROPHILS # (AUTO) 4.9 K/uL (1.8-7.7); PLATELET COUNT (AUTO) 291 K/uL (130-430); RED BLOOD CELL COUNT(AUTO) 2.93 MIL/uL (4.2-6.2); RED CELL DISTRIBUTION WIDTH 15.1 % (9.0-15.0); WHITE BLOOD COUNT (AUTO) 7.5 K/uL (4.8-10.8)
[2020-09-28] MEDS: FLUTICASONE PROPIONATE 50 mCg/SPRAY 16 GM NS SCH ×2 (09:13→20:44)
[2020-09-28] MEDS: [UNRECOGNIZED DRUG - OTHER] SCH ×3 (09:13→22:26)
[2020-09-28] MEDS: PANTOPRAZOLE SODIUM 40 MG/VIAL (PROTONIX) IVP SCH ×2 (09:14→20:37)
[2020-09-28] MEDS: POLYETHYLENE GLYCOL 3350, 17 GM/ POWD.PACK PO SCH (09:15)
[2020-09-28] MEDS: SENNA 8.8 MG/5 ML UDC GT SCH (09:15)
[2020-09-28] MEDS: hydrALAZINE HCL 25 MG TABLET PO SCH ×2 (09:15→20:33)
[2020-09-28] MEDS: OXYBUTYNIN CHLORIDE 5 MG TABLET PO SCH ×2 (09:16→20:34)
[2020-09-28] MEDS: calcitrioL 0.25 MCG CAPSULE PO SCH (09:16)
[2020-09-28] MEDS: glipiZIDE XL 5 MG TAB ( GLUCOTROL XL) PO SCH (09:17)
[2020-09-28] MEDS: DOCUSATE SODIUM 100 MG/10 ML UDC PO SCH ×2 (09:18→20:33)
[2020-09-28] MEDS: METOPROLOL TARTRATE 25 MG TABLET PO SCH ×2 (09:18→20:32)
[2020-09-28] MEDS: ATORVASTATIN 10 MG TABLET PO SCH (09:18)
[2020-09-28] MEDS: FERROUS SULFATE 325 MG TABLET.DR PO SCH (09:19)
[2020-09-28] MEDS: NIFEdipine 30 MG TAB.ER.24 PO SCH ×2 (09:20→20:34)
[2020-09-28] MEDS: APIXABAN 2.5 MG TABLET PO SCH ×2 (09:23→20:36)
[2020-09-28] MEDS: INSULIN REGULAR, HUMAN 100 UNITS/ML, 10 ML VIAL (humuLIN R) SUBCUT PRN (11:49)
[2020-09-28] MEDS ORDERED: HEPARIN SODIUM,PORCINE 5,000 UNITS/ML VIAL SUBCUT ONE (13:30)
[2020-09-28] MEDS: traZODone HCL 50 MG TABLET (DESYREL) PO SCH (20:34)
[2020-09-28] MEDS: TERAZOSIN HCL 1 MG CAPSULE (HYTRIN) PO SCH (22:26)
[2020-09-29] VITALS: BP_SYST 137
[2020-09-29] MEDS: INSULIN REGULAR, HUMAN 100 UNITS/ML, 10 ML VIAL (humuLIN R) SUBCUT PRN ×2 (00:22→18:12)
[2020-09-29] MEDS: ALBUTEROL MDI INHALATION 8 GM INH INH SCH ×4 (04:10→15:00)
[2020-09-29] MEDS: cloNIDine HCL 0.1 MG TABLET PO SCH ×5 (06:00→23:43)
[2020-09-29] MEDS: INSULIN GLARGINE 100 UNITS/ML 10 ML VIAL SQ SCH (06:13)
[2020-09-29 07:49] LABS: BASOPHILS # (AUTO) 0.1 K/uL (0.0-0.2); BASOPHILS % (AUTO) 1.1 % (0.0-2.0); EOSINOPHILS # (AUTO) 0.2 K/uL (0.0-0.4); HEMATOCRIT 27.2 % (36-54); HEMOGLOBIN 9.3 g/dL (14.0-18.0); LYMPHOCYTES # (AUTO) 1.4 K/uL (1.0-5.5); LYMPHOCYTES % (AUTO) 19.9 % (20.5-51.5); MEAN CORPUSCULAR HEMOGLOBIN 29 pg (27-31); MEAN CORPUSCULAR HGB CONC 34 % (32-36); MEAN CORPUSCULAR VOLUME 86 fL (79.0-98.0); MONOCYTES # (AUTO) 0.7 K/uL (0.0-1.0); MONOCYTES % (AUTO) 9.5 % (1.7-9.3); NEUTROPHILS # (AUTO) 4.7 K/uL (1.8-7.7); NEUTROPHILS % (AUTO) 66.5 % (40.0-70.0); PLATELET COUNT (AUTO) 290 K/uL (130-430); RED BLOOD CELL COUNT(AUTO) 3.18 MIL/uL (4.2-6.2)
[2020-09-29 08:51] LABS: ANION GAP 8 (5-15); CALCIUM 9.1 mg/dL (8.4-11.0); CHLORIDE 101 mmol/L (98-107); CREATININE 5.43 mg/dL (0.55-1.30); GLUCOSE 80 mg/dL (70-99); POTASSIUM 4.1 mmol/L (3.5-5.1); SODIUM SERUM 138 mmol/L (136-145); UREA NITROGEN, BLOOD 31 mg/dL (8-21)
[2020-09-29 09:00] VITALS: BP_SYST 121
[2020-09-29] MEDS: PANTOPRAZOLE SODIUM 40 MG/VIAL (PROTONIX) IVP SCH ×2 (09:00→21:31)
[2020-09-29] MEDS: DOCUSATE SODIUM 100 MG/10 ML UDC PO SCH ×2 (09:01→21:33)
[2020-09-29] MEDS: POLYETHYLENE GLYCOL 3350, 17 GM/ POWD.PACK PO SCH (09:01)
[2020-09-29] MEDS: calcitrioL 0.25 MCG CAPSULE PO SCH (09:01)
[2020-09-29] MEDS: METOPROLOL TARTRATE 25 MG TABLET PO SCH ×2 (09:03→21:36)
[2020-09-29] MEDS: FERROUS SULFATE 325 MG TABLET.DR PO SCH (09:03)
[2020-09-29] MEDS: OXYBUTYNIN CHLORIDE 5 MG TABLET PO SCH ×2 (09:04→21:40)
[2020-09-29] MEDS: glipiZIDE XL 5 MG TAB ( GLUCOTROL XL) PO SCH (09:04)
[2020-09-29] MEDS: hydrALAZINE HCL 25 MG TABLET PO SCH ×2 (09:05→21:35)
[2020-09-29] MEDS: NIFEdipine 30 MG TAB.ER.24 PO SCH ×2 (09:06→21:35)
[2020-09-29] MEDS: ATORVASTATIN 10 MG TABLET PO SCH (09:07)
[2020-09-29] MEDS: FLUTICASONE PROPIONATE 50 mCg/SPRAY 16 GM NS SCH ×2 (09:07→21:37)
[2020-09-29] MEDS: [UNRECOGNIZED DRUG - OTHER] SCH ×3 (09:08→21:38)
[2020-09-29] MEDS: APIXABAN 2.5 MG TABLET PO SCH ×2 (09:09→21:41)
[2020-09-29] MEDS: SENNA 8.8 MG/5 ML UDC GT SCH (09:27)
[2020-09-29 12:34] VITALS: BP_SYST 133
[2020-09-29 16:36] VITALS: BP_SYST 122
[2020-09-29 20:00] VITALS: BP_SYST 133
[2020-09-29] MEDS: traZODone HCL 50 MG TABLET (DESYREL) PO SCH (21:35)
[2020-09-29] MEDS: TERAZOSIN HCL 1 MG CAPSULE (HYTRIN) PO SCH (21:45)
[2020-09-30] VITALS (7 sets, daily range): BP systolic 116–137
[2020-09-30] MEDS: cloNIDine HCL 0.1 MG TABLET PO SCH ×3 (05:38→18:00)
[2020-09-30 06:37] LABS: BASOPHILS # (AUTO) 0.1 K/uL (0.0-0.2); BASOPHILS % (AUTO) 1.2 % (0.0-2.0); EOSINOPHILS # (AUTO) 0.2 K/uL (0.0-0.4); EOSINOPHILS % (AUTO) 3.1 % (0.0-4.0); HEMATOCRIT 27.5 % (36-54); HEMOGLOBIN 9.3 g/dL (14.0-18.0); LYMPHOCYTES # (AUTO) 1.5 K/uL (1.0-5.5); LYMPHOCYTES % (AUTO) 21.6 % (20.5-51.5); MEAN CORPUSCULAR HEMOGLOBIN 29 pg (27-31); MEAN CORPUSCULAR HGB CONC 34 % (32-36); MEAN CORPUSCULAR VOLUME 85 fL (79.0-98.0); MONOCYTES # (AUTO) 0.7 K/uL (0.0-1.0); MONOCYTES % (AUTO) 9.5 % (1.7-9.3); NEUTROPHILS # (AUTO) 4.6 K/uL (1.8-7.7); NEUTROPHILS % (AUTO) 64.6 % (40.0-70.0); PLATELET COUNT (AUTO) 288 K/uL (130-430); RED BLOOD CELL COUNT(AUTO) 3.23 MIL/uL (4.2-6.2); WHITE BLOOD COUNT (AUTO) 7.1 K/uL (4.8-10.8)
[2020-09-30] MEDS: INSULIN GLARGINE 100 UNITS/ML 10 ML VIAL SQ SCH (06:52)
[2020-09-30] MEDS: ONDANSETRON HCL 4 MG/2 ML VIAL IVP PRN (07:48)
[2020-09-30 08:30] LABS: CHLORIDE 100 mmol/L (98-107); POTASSIUM 4.5 mmol/L (3.5-5.1); SODIUM SERUM 137 mmol/L (136-145)
[2020-09-30 08:31] LABS: ANION GAP 11 (5-15); CALCIUM 9.1 mg/dL (8.4-11.0); CREATININE 6.34 mg/dL (0.55-1.30); GLUCOSE 117 mg/dL (70-99); PHOSPHORUS 4.5 mg/dL (2.7-4.5); UREA NITROGEN, BLOOD 40 mg/dL (8-21)
[2020-09-30] MEDS: DOCUSATE SODIUM 100 MG/10 ML UDC PO SCH ×2 (09:00→20:46)
[2020-09-30] MEDS: SENNA 8.8 MG/5 ML UDC GT SCH (09:00)
[2020-09-30] MEDS: ALBUTEROL MDI INHALATION 8 GM INH INH SCH ×2 (09:10→14:41)
[2020-09-30] MEDS: hydrALAZINE HCL 25 MG TABLET PO SCH ×3 (10:32→20:44)
[2020-09-30] MEDS: OXYBUTYNIN CHLORIDE 5 MG TABLET PO SCH ×2 (10:32→20:43)
[2020-09-30] MEDS: calcitrioL 0.25 MCG CAPSULE PO SCH (10:32)
[2020-09-30] MEDS: glipiZIDE XL 5 MG TAB ( GLUCOTROL XL) PO SCH (10:33)
[2020-09-30] MEDS: NIFEdipine 30 MG TAB.ER.24 PO SCH ×2 (10:34→20:43)
[2020-09-30] MEDS: PANTOPRAZOLE SODIUM 40 MG/VIAL (PROTONIX) IVP SCH ×2 (10:35→20:42)
[2020-09-30] MEDS: POLYETHYLENE GLYCOL 3350, 17 GM/ POWD.PACK PO SCH (10:35)
[2020-09-30] MEDS: ATORVASTATIN 10 MG TABLET PO SCH (10:35)
[2020-09-30] MEDS: FERROUS SULFATE 325 MG TABLET.DR PO SCH (10:35)
[2020-09-30] MEDS: APIXABAN 2.5 MG TABLET PO SCH ×2 (10:36→20:47)
[2020-09-30] MEDS: FLUTICASONE PROPIONATE 50 mCg/SPRAY 16 GM NS SCH ×2 (10:38→20:43)
[2020-09-30] MEDS: [UNRECOGNIZED DRUG - OTHER] SCH ×3 (10:38→20:42)
[2020-09-30] MEDS: METOPROLOL TARTRATE 25 MG TABLET PO SCH ×2 (10:56→20:45)
[2020-09-30] MEDS: traZODone HCL 50 MG TABLET (DESYREL) PO SCH (20:43)
[2020-09-30] MEDS: TERAZOSIN HCL 1 MG CAPSULE (HYTRIN) PO SCH (20:46)
[2020-10-01] VITALS: BP_SYST 118
[2020-10-01] MEDS: cloNIDine HCL 0.1 MG TABLET PO SCH ×4 (05:36→17:29)
[2020-10-01] MEDS: INSULIN GLARGINE 100 UNITS/ML 10 ML VIAL SQ SCH (06:32)
[2020-10-01] MEDS: ALBUTEROL MDI INHALATION 8 GM INH INH SCH ×5 (07:00→23:07)
[2020-10-01 07:26] LABS: BASOPHILS # (AUTO) 0.1 K/uL (0.0-0.2); BASOPHILS % (AUTO) 1.1 % (0.0-2.0); EOSINOPHILS # (AUTO) 0.3 K/uL (0.0-0.4); EOSINOPHILS % (AUTO) 3.4 % (0.0-4.0); HEMATOCRIT 27.2 % (36-54); HEMOGLOBIN 9.2 g/dL (14.0-18.0); LYMPHOCYTES # (AUTO) 1.5 K/uL (1.0-5.5); LYMPHOCYTES % (AUTO) 17.8 % (20.5-51.5); MEAN CORPUSCULAR HEMOGLOBIN 29 pg (27-31); MEAN CORPUSCULAR HGB CONC 34 % (32-36); MEAN CORPUSCULAR VOLUME 86 fL (79.0-98.0); MONOCYTES # (AUTO) 0.6 K/uL (0.0-1.0); MONOCYTES % (AUTO) 7.6 % (1.7-9.3); NEUTROPHILS # (AUTO) 5.9 K/uL (1.8-7.7); NEUTROPHILS % (AUTO) 70.1 % (40.0-70.0); PLATELET COUNT (AUTO) 284 K/uL (130-430); RED BLOOD CELL COUNT(AUTO) 3.17 MIL/uL (4.2-6.2); WHITE BLOOD COUNT (AUTO) 8.3 K/uL (4.8-10.8)
[2020-10-01 08:00] VITALS: BP_SYST 140
[2020-10-01 08:20] LABS: ALANINE AMINOTRANSFERASE 10 U/L (12-78); ALBUMIN 2.6 g/dL (3.4-4.8); ANION GAP 9 (5-15); ASPARTATE AMINOTRANSFERASE 9 U/L (10-37); CHLORIDE 99 mmol/L (98-107); CREATININE 6.97 mg/dL (0.55-1.30); GLUCOSE 143 mg/dL (70-99); PHOSPHORUS 4.7 mg/dL (2.7-4.5); POTASSIUM 4.7 mmol/L (3.5-5.1); SODIUM SERUM 135 mmol/L (136-145); TOTAL BILIRUBIN 0.2 mg/dL (0.0-1.0); UREA NITROGEN, BLOOD 48 mg/dL (8-21)
[2020-10-01] MEDS: SENNA 8.8 MG/5 ML UDC GT SCH (09:00)
[2020-10-01] MEDS: POLYETHYLENE GLYCOL 3350, 17 GM/ POWD.PACK PO SCH (09:10)
[2020-10-01] MEDS: DOCUSATE SODIUM 100 MG/10 ML UDC PO SCH ×2 (09:10→21:00)
[2020-10-01] MEDS: PANTOPRAZOLE SODIUM 40 MG/VIAL (PROTONIX) IVP SCH ×2 (09:14→22:08)
[2020-10-01] MEDS: OXYBUTYNIN CHLORIDE 5 MG TABLET PO SCH ×2 (09:14→22:09)
[2020-10-01] MEDS: glipiZIDE XL 5 MG TAB ( GLUCOTROL XL) PO SCH (09:15)
[2020-10-01] MEDS: NIFEdipine 30 MG TAB.ER.24 PO SCH ×2 (09:15→22:11)
[2020-10-01] MEDS: calcitrioL 0.25 MCG CAPSULE PO SCH (09:15)
[2020-10-01] MEDS: ATORVASTATIN 10 MG TABLET PO SCH (09:15)
[2020-10-01] MEDS: FERROUS SULFATE 325 MG TABLET.DR PO SCH (09:15)
[2020-10-01] MEDS: hydrALAZINE HCL 25 MG TABLET PO SCH ×2 (09:18→22:10)
[2020-10-01] MEDS: METOPROLOL TARTRATE 25 MG TABLET PO SCH ×2 (09:19→22:11)
[2020-10-01] MEDS: APIXABAN 2.5 MG TABLET PO SCH ×2 (09:20→22:13)
[2020-10-01] MEDS: [UNRECOGNIZED DRUG - OTHER] SCH ×3 (09:21→22:09)
[2020-10-01] MEDS: FLUTICASONE PROPIONATE 50 mCg/SPRAY 16 GM NS SCH ×2 (09:21→22:21)
[2020-10-01] MEDS ORDERED: HEPARIN SODIUM,PORCINE 5,000 UNITS/ML VIAL ONE (12:04)
[2020-10-01 12:05] VITALS: BP_SYST 129
[2020-10-01] MEDS ORDERED: HEPARIN SODIUM,PORCINE 5,000 UNITS/ML VIAL IVP ONE (12:45)
[2020-10-01 16:08] VITALS: BP_SYST 133
[2020-10-01 20:10] VITALS: BP_SYST 144
[2020-10-01] MEDS: traZODone HCL 50 MG TABLET (DESYREL) PO SCH (22:09)
[2020-10-01] MEDS: TERAZOSIN HCL 1 MG CAPSULE (HYTRIN) PO SCH (22:18)
[2020-10-02 00:10] VITALS: BP_SYST 143
[2020-10-02] MEDS: ALBUTEROL MDI INHALATION 8 GM INH INH SCH ×6 (03:18→23:20)
[2020-10-02] MEDS: cloNIDine HCL 0.1 MG TABLET PO SCH ×4 (06:00→18:02)
[2020-10-02] MEDS: INSULIN GLARGINE 100 UNITS/ML 10 ML VIAL SQ SCH (06:29)
[2020-10-02 07:45] LABS: BASOPHILS # (AUTO) 0.1 K/uL (0.0-0.2); BASOPHILS % (AUTO) 0.9 % (0.0-2.0); EOSINOPHILS # (AUTO) 0.2 K/uL (0.0-0.4); EOSINOPHILS % (AUTO) 2.3 % (0.0-4.0); HEMATOCRIT 27.8 % (36-54); HEMOGLOBIN 9.5 g/dL (14.0-18.0); LYMPHOCYTES # (AUTO) 1.4 K/uL (1.0-5.5); LYMPHOCYTES % (AUTO) 16.6 % (20.5-51.5); MEAN CORPUSCULAR HEMOGLOBIN 29 pg (27-31); MEAN CORPUSCULAR HGB CONC 34 % (32-36); MEAN CORPUSCULAR VOLUME 85 fL (79.0-98.0); MONOCYTES # (AUTO) 0.7 K/uL (0.0-1.0); NEUTROPHILS # (AUTO) 5.9 K/uL (1.8-7.7); NEUTROPHILS % (AUTO) 71.2 % (40.0-70.0); PLATELET COUNT (AUTO) 258 K/uL (130-430); RED BLOOD CELL COUNT(AUTO) 3.26 MIL/uL (4.2-6.2); RED CELL DISTRIBUTION WIDTH 14.9 % (9.0-15.0); WHITE BLOOD COUNT (AUTO) 8.3 K/uL (4.8-10.8)
[2020-10-02 07:52] LABS: ANION GAP 9 (5-15); CALCIUM 9.3 mg/dL (8.4-11.0); CHLORIDE 99 mmol/L (98-107); CREATININE 5.79 mg/dL (0.55-1.30); GLUCOSE 115 mg/dL (70-99); PHOSPHORUS 4.5 mg/dL (2.7-4.5); POTASSIUM 4.6 mmol/L (3.5-5.1); SODIUM SERUM 136 mmol/L (136-145); UREA NITROGEN, BLOOD 36 mg/dL (8-21)
[2020-10-02 08:02] VITALS: BP_SYST 123
[2020-10-02 08:37] VITALS: BP_SYST 128
[2020-10-02] MEDS: POLYETHYLENE GLYCOL 3350, 17 GM/ POWD.PACK PO SCH (09:13)
[2020-10-02] MEDS: FERROUS SULFATE 325 MG TABLET.DR PO SCH (09:13)
[2020-10-02] MEDS: ATORVASTATIN 10 MG TABLET PO SCH (09:13)
[2020-10-02] MEDS: glipiZIDE XL 5 MG TAB ( GLUCOTROL XL) PO SCH (09:13)
[2020-10-02] MEDS: OXYBUTYNIN CHLORIDE 5 MG TABLET PO SCH ×2 (09:14→23:03)
[2020-10-02] MEDS: calcitrioL 0.25 MCG CAPSULE PO SCH (09:14)
[2020-10-02] MEDS: METOPROLOL TARTRATE 25 MG TABLET PO SCH ×2 (09:15→23:05)
[2020-10-02] MEDS: NIFEdipine 30 MG TAB.ER.24 PO SCH ×2 (09:16→23:05)
[2020-10-02] MEDS: PANTOPRAZOLE SODIUM 40 MG/VIAL (PROTONIX) IVP SCH ×2 (09:17→23:00)
[2020-10-02] MEDS: SENNA 8.8 MG/5 ML UDC GT SCH (09:17)
[2020-10-02] MEDS: hydrALAZINE HCL 25 MG TABLET PO SCH ×2 (09:17→23:04)
[2020-10-02] MEDS: FLUTICASONE PROPIONATE 50 mCg/SPRAY 16 GM NS SCH ×2 (09:19→23:07)
[2020-10-02] MEDS: [UNRECOGNIZED DRUG - OTHER] SCH ×3 (09:20→23:01)
[2020-10-02] MEDS: DOCUSATE SODIUM 100 MG/10 ML UDC PO SCH ×2 (09:21→21:00)
[2020-10-02] MEDS: APIXABAN 2.5 MG TABLET PO SCH ×2 (09:25→21:00)
[2020-10-02 11:45] VITALS: BP_SYST 116
[2020-10-02 15:44] LABS: INR 1.1 (0.80-1.20); PROTHROMBIN TIME 10.8 SECS (9.5-12.5)
[2020-10-02 16:47] VITALS: BP_SYST 122
[2020-10-02 20:30] VITALS: BP_SYST 124
[2020-10-02] MEDS: traZODone HCL 50 MG TABLET (DESYREL) PO SCH (23:02)
[2020-10-02] MEDS: TERAZOSIN HCL 1 MG CAPSULE (HYTRIN) PO SCH (23:11)
[2020-10-03 00:55] VITALS: BP_SYST 135
[2020-10-03] MEDS: cloNIDine HCL 0.1 MG TABLET PO SCH ×4 (06:00→17:40)
[2020-10-03] MEDS: INSULIN GLARGINE 100 UNITS/ML 10 ML VIAL SQ SCH (06:13)
[2020-10-03] MEDS: ALBUTEROL MDI INHALATION 8 GM INH INH SCH ×4 (07:00→19:00)
[2020-10-03 07:08] LABS: BASOPHILS # (AUTO) 0.1 K/uL (0.0-0.2); BASOPHILS % (AUTO) 1.5 % (0.0-2.0); EOSINOPHILS # (AUTO) 0.2 K/uL (0.0-0.4); EOSINOPHILS % (AUTO) 3.1 % (0.0-4.0); HEMATOCRIT 25.6 % (36-54); HEMOGLOBIN 8.8 g/dL (14.0-18.0); LYMPHOCYTES # (AUTO) 1.4 K/uL (1.0-5.5); LYMPHOCYTES % (AUTO) 19.9 % (20.5-51.5); MEAN CORPUSCULAR HEMOGLOBIN 29 pg (27-31); MEAN CORPUSCULAR HGB CONC 35 % (32-36); MEAN CORPUSCULAR VOLUME 85 fL (79.0-98.0); MONOCYTES # (AUTO) 0.7 K/uL (0.0-1.0); MONOCYTES % (AUTO) 9.8 % (1.7-9.3); NEUTROPHILS # (AUTO) 4.8 K/uL (1.8-7.7); NEUTROPHILS % (AUTO) 65.7 % (40.0-70.0); PLATELET COUNT (AUTO) 251 K/uL (130-430); RED BLOOD CELL COUNT(AUTO) 3.02 MIL/uL (4.2-6.2); WHITE BLOOD COUNT (AUTO) 7.3 K/uL (4.8-10.8)
[2020-10-03 07:35] LABS: ALANINE AMINOTRANSFERASE 12 U/L (12-78); ALBUMIN 2.7 g/dL (3.4-4.8); ASPARTATE AMINOTRANSFERASE 11 U/L (10-37); CALCIUM 9.2 mg/dL (8.4-11.0); CHLORIDE 100 mmol/L (98-107); CREATININE 6.62 mg/dL (0.55-1.30); GLUCOSE 92 mg/dL (70-99); PHOSPHORUS 4.5 mg/dL (2.7-4.5); POTASSIUM 4.4 mmol/L (3.5-5.1); SODIUM SERUM 137 mmol/L (136-145); TOTAL BILIRUBIN 0.3 mg/dL (0.0-1.0); UREA NITROGEN, BLOOD 42 mg/dL (8-21)
[2020-10-03 07:49] LABS: ANION GAP 10 (5-15)
[2020-10-03] MEDS ORDERED: HYDROmorphone 2 MG/ML VIAL IVP PRN (08:45)
[2020-10-03] MEDS ORDERED: HYDROcodone/ACETAMIN 5-325 MG TAB (NORCO/ VICODIN) PO PRN (08:45)
[2020-10-03] MEDS ORDERED: MORPHINE 4 MG/ML INJ. SYRINGE IVP PRN (08:45)
[2020-10-03] MEDS: SENNA 8.8 MG/5 ML UDC GT SCH (09:00)
[2020-10-03] MEDS: APIXABAN 2.5 MG TABLET PO SCH ×2 (09:00→21:49)
[2020-10-03] MEDS: POLYETHYLENE GLYCOL 3350, 17 GM/ POWD.PACK PO SCH (10:16)
[2020-10-03] MEDS: PANTOPRAZOLE SODIUM 40 MG/VIAL (PROTONIX) IVP SCH ×2 (10:16→21:00)
[2020-10-03] MEDS: DOCUSATE SODIUM 100 MG/10 ML UDC PO SCH ×2 (10:17→21:00)
[2020-10-03] MEDS: NIFEdipine 30 MG TAB.ER.24 PO SCH ×2 (10:18→21:46)
[2020-10-03] MEDS: ATORVASTATIN 10 MG TABLET PO SCH (10:18)
[2020-10-03] MEDS: calcitrioL 0.25 MCG CAPSULE PO SCH (10:18)
[2020-10-03] MEDS: glipiZIDE XL 5 MG TAB ( GLUCOTROL XL) PO SCH (10:19)
[2020-10-03] MEDS: METOPROLOL TARTRATE 25 MG TABLET PO SCH ×2 (10:19→21:48)
[2020-10-03] MEDS: FERROUS SULFATE 325 MG TABLET.DR PO SCH (10:19)
[2020-10-03] MEDS: OXYBUTYNIN CHLORIDE 5 MG TABLET PO SCH ×2 (10:19→21:46)
[2020-10-03 10:20] VITALS: BP_SYST 139
[2020-10-03] MEDS: [UNRECOGNIZED DRUG - OTHER] SCH ×3 (10:20→21:00)
[2020-10-03] MEDS: FLUTICASONE PROPIONATE 50 mCg/SPRAY 16 GM NS SCH ×2 (10:21→21:00)
[2020-10-03] MEDS: hydrALAZINE HCL 25 MG TABLET PO SCH ×2 (10:35→21:48)
[2020-10-03 11:26] VITALS: BP_SYST 136
[2020-10-03 12:17] VITALS: BP_SYST 136
[2020-10-03] MEDS: INSULIN REGULAR, HUMAN 100 UNITS/ML, 10 ML VIAL (humuLIN R) SUBCUT PRN ×2 (13:00→17:39)
[2020-10-03 16:12] VITALS: BP_SYST 147
[2020-10-03] MEDS ORDERED: HEPARIN SODIUM,PORCINE 5,000 UNITS/ML VIAL MC ONE (18:45)
[2020-10-03 20:01] VITALS: BP_SYST 111
[2020-10-03] MEDS: traZODone HCL 50 MG TABLET (DESYREL) PO SCH (21:00)
[2020-10-03] MEDS: TERAZOSIN HCL 1 MG CAPSULE (HYTRIN) PO SCH (21:47)
[2020-10-03] MEDS ORDERED: hydrALAZINE HCL 25 MG TABLET ONE (21:55)
== END 2020-10-03 23:00 | disposition home health service (06) | DRG 870 ==
LOC: SED 18:42 → STU 23:44 → SIC 08-23 01:45 → STU 08-29 21:49 → SMU 09-03 15:22
PROVIDERS: ADMIT Preventive Medicine Preventive Medicine/Occupational Environmental Medicine; ATTEND Preventive Medicine Preventive Medicine/Occupational Environmental Medicine
PROC: 5A1955Z Respiratory Ventilation, Greater than 96 Consecutive Hours (ICD-10-PCS; principal; 2020-08-21)
PROC: 0BH17EZ Insertion of Endotracheal Airway into Trachea, Via Natural or Artificial Opening (ICD-10-PCS; 2020-08-21)
PROC: 02HV33Z Insertion of Infusion Device into Superior Vena Cava, Percutaneous Approach (ICD-10-PCS; 2020-08-23)
PROC: B548ZZA Ultrasonography of Superior Vena Cava, Guidance (ICD-10-PCS; 2020-08-23)
PROC: 5A1D70Z Performance of Urinary Filtration, Intermittent, Less than 6 Hours Per Day (ICD-10-PCS; 2020-08-23)
PROC: 5A1D70Z Performance of Urinary Filtration, Intermittent, Less than 6 Hours Per Day (ICD-10-PCS; 2020-08-24)
PROC: 30233N1 Transfusion of Nonautologous Red Blood Cells into Peripheral Vein, Percutaneous Approach (ICD-10-PCS; 2020-08-25)
PROC: 5A1D70Z Performance of Urinary Filtration, Intermittent, Less than 6 Hours Per Day (ICD-10-PCS; 2020-08-25)
PROC: 5A09357 Assistance with Respiratory Ventilation, Less than 24 Consecutive Hours, Continuous Positive Airway Pressure (ICD-10-PCS; 2020-08-27)
PROC: 5A1935Z Respiratory Ventilation, Less than 24 Consecutive Hours (ICD-10-PCS; 2020-08-27)
PROC: 5A1D70Z Performance of Urinary Filtration, Intermittent, Less than 6 Hours Per Day (ICD-10-PCS; 2020-08-27)
PROC: 5A1D70Z Performance of Urinary Filtration, Intermittent, Less than 6 Hours Per Day (ICD-10-PCS; 2020-08-29)
PROC: 5A1D70Z Performance of Urinary Filtration, Intermittent, Less than 6 Hours Per Day (ICD-10-PCS; 2020-08-31)
PROC: 5A1D70Z Performance of Urinary Filtration, Intermittent, Less than 6 Hours Per Day (ICD-10-PCS; 2020-09-03)
PROC: 5A1D70Z Performance of Urinary Filtration, Intermittent, Less than 6 Hours Per Day (ICD-10-PCS; 2020-09-04)
PROC: 5A1D70Z Performance of Urinary Filtration, Intermittent, Less than 6 Hours Per Day (ICD-10-PCS; 2020-09-05)
PROC: 5A1D70Z Performance of Urinary Filtration, Intermittent, Less than 6 Hours Per Day (ICD-10-PCS; 2020-09-07)
PROC: 5A1D70Z Performance of Urinary Filtration, Intermittent, Less than 6 Hours Per Day (ICD-10-PCS; 2020-09-10)
PROC: 5A1D70Z Performance of Urinary Filtration, Intermittent, Less than 6 Hours Per Day (ICD-10-PCS; 2020-09-12)
PROC: 0DB68ZX Excision of Stomach, Via Natural or Artificial Opening Endoscopic, Diagnostic (ICD-10-PCS; 2020-09-13)
PROC: 0DB58ZX Excision of Esophagus, Via Natural or Artificial Opening Endoscopic, Diagnostic (ICD-10-PCS; 2020-09-13)
PROC: 0D758ZZ Dilation of Esophagus, Via Natural or Artificial Opening Endoscopic (ICD-10-PCS; 2020-09-13)
PROC: 5A1D70Z Performance of Urinary Filtration, Intermittent, Less than 6 Hours Per Day (ICD-10-PCS; 2020-09-14)
PROC: 5A1D70Z Performance of Urinary Filtration, Intermittent, Less than 6 Hours Per Day (ICD-10-PCS; 2020-09-17)
PROC: 5A1D70Z Performance of Urinary Filtration, Intermittent, Less than 6 Hours Per Day (ICD-10-PCS; 2020-09-19)
PROC: 5A1D70Z Performance of Urinary Filtration, Intermittent, Less than 6 Hours Per Day (ICD-10-PCS; 2020-09-21)
PROC: 5A1D70Z Performance of Urinary Filtration, Intermittent, Less than 6 Hours Per Day (ICD-10-PCS; 2020-09-24)
PROC: 5A1D70Z Performance of Urinary Filtration, Intermittent, Less than 6 Hours Per Day (ICD-10-PCS; 2020-09-26)
PROC: 5A1D70Z Performance of Urinary Filtration, Intermittent, Less than 6 Hours Per Day (ICD-10-PCS; 2020-09-28)
PROC: 5A1D70Z Performance of Urinary Filtration, Intermittent, Less than 6 Hours Per Day (ICD-10-PCS; 2020-10-01)
PROC: 02PYX3Z Removal of Infusion Device from Great Vessel, External Approach (ICD-10-PCS; 2020-10-03)
PROC: 0JH63XZ Insertion of Tunneled Vascular Access Device into Chest Subcutaneous Tissue and Fascia, Percutaneous Approach (ICD-10-PCS; 2020-10-03)
PROC: 02HV33Z Insertion of Infusion Device into Superior Vena Cava, Percutaneous Approach (ICD-10-PCS; 2020-10-03)
PROC: B5181ZA Fluoroscopy of Superior Vena Cava using Low Osmolar Contrast, Guidance (ICD-10-PCS; 2020-10-03)
PROC: 5A1D70Z Performance of Urinary Filtration, Intermittent, Less than 6 Hours Per Day (ICD-10-PCS; 2020-10-03)
DX: A41.2 Sepsis due to unspecified staphylococcus (principal); E11.00 Type 2 diabetes mellitus with hyperosmolarity without nonketotic hyperglycemic-hyperosmolar coma (NKHHC); E11.10 Type 2 diabetes mellitus with ketoacidosis without coma; E43 Unspecified severe protein-calorie malnutrition; J96.01 Acute respiratory failure with hypoxia; R65.21 Severe sepsis with septic shock; U07.1 COVID-19; N18.6 End stage renal disease; E87.2 Acidosis; N17.9 Acute kidney failure, unspecified; E87.1 Hypo-osmolality and hyponatremia; Z99.11 Dependence on respirator [ventilator] status; E87.0 Hyperosmolality and hypernatremia; I13.0 Hypertensive heart and chronic kidney disease with heart failure and stage 1 through stage 4 chronic kidney disease, or unspecified chronic kidney disease; K92.2 Gastrointestinal hemorrhage, unspecified; N10 Acute pyelonephritis; I50.42 Chronic combined systolic (congestive) and diastolic (congestive) heart failure; I13.2 Hypertensive heart and chronic kidney disease with heart failure and with stage 5 chronic kidney disease, or end stage renal disease; D64.9 Anemia, unspecified; E11.22 Type 2 diabetes mellitus with diabetic chronic kidney disease; E78.5 Hyperlipidemia, unspecified; E83.51 Hypocalcemia; E83.52 Hypercalcemia; E87.5 Hyperkalemia; G40.409 Other generalized epilepsy and epileptic syndromes, not intractable, without status epilepticus; K21.00 Gastro-esophageal reflux disease with esophagitis, without bleeding; K29.70 Gastritis, unspecified, without bleeding; K44.9 Diaphragmatic hernia without obstruction or gangrene; K76.89 Other specified diseases of liver; N28.1 Cyst of kidney, acquired; R33.9 Retention of urine, unspecified; N28.9 Disorder of kidney and ureter, unspecified; E88.09 Other disorders of plasma-protein metabolism, not elsewhere classified; I95.1 Orthostatic hypotension; R13.10 Dysphagia, unspecified; E11.65 Type 2 diabetes mellitus with hyperglycemia; E78.00 Pure hypercholesterolemia, unspecified; R32 Unspecified urinary incontinence; Z79.01 Long term (current) use of anticoagulants; Z79.82 Long term (current) use of aspirin; R31.29 Other microscopic hematuria; Z86.73 Personal history of transient ischemic attack (TIA), and cerebral infarction without residual deficits; Z88.0 Allergy status to penicillin; Z68.25 Body mass index [BMI] 25.0-25.9, adult; Z99.2 Dependence on renal dialysis; E87.6 Hypokalemia; Z79.899 Other long term (current) drug therapy; Z79.4 Long term (current) use of insulin; Z88.6 Allergy status to analgesic agent; E83.41 Hypermagnesemia; E83.39 Other disorders of phosphorus metabolism
CPT/HCPCS: 36415; 36600; 43239; 70450-TC; 71045; 74018; 76000; 76376; 76700-TC; 80048; 80053; 80074; 80307; 81000-TC; 82009-TC; 82607; 82728; 82746; 82803-TC; 82962; 83010; 83540-TC; 83550-TC; 83605; 83735-TC; 84100-TC; 84153; 84484; 85007; 85018-TC; 85025; 85027; 85044-TC; 85379; 85384-TC; 85610-TC; 85651-TC; 85730-TC; 86038; 86140; 86886; 86900; 86901; 86920; 87040-TC; 87081; 87086; 88305; 88312; 88313; 90935; 90937; 92610-GN; 93005; 93971; 94003; 94640; 94760; 96365; 96366; 97110-GP; 97112-GP; 97116-GP; 97530-GP; 99291; C1751; C9113; G0378; J0330; J0360; J0692; J0878; J1644; J1815; J1940; J1953; J1956; J2060; J2175; J2185; J2250; J2270; J2405; J2543; J2704; J2765; J3370; J3480; J3490; J7030; J7040; J7042; J7050; J7060; J7613; P9021; U0003

== ENCOUNTER 2021-04-26 12:28 | Emergency (ER) | payer MEDICARE, SELFPAY ==
[~2021-04-26] VITALS: Ht 177.8 cm; Wt 90.7 kg
[~2021-04-26 12:28] MED LIST: ATOR10TA68 PO; CALC0.258 PO; CLON0.1T PO; DITXL5 PO; DOXY100C PO; ERGO500020 PO; FERR-69 PO; FURO-150 PO; GLIP5TAB26 PO; HYDR100T25 PO; HYT1 PO; INSU100V42 SQ; INSU100V9 SQ; METO200T3 PO; PRO40 PO; TRAZ-250 PO
[2021-04-26 12:46] VITALS: BP_SYST 131
[2021-04-26 13:42] LABS: ANION GAP 8 (5-15); CHLORIDE 99 mmol/L (98-107); CREATININE 4.52 mg/dL (0.55-1.30); GLUCOSE 204 mg/dL (70-99); POTASSIUM 3.9 mmol/L (3.5-5.1); SODIUM SERUM 138 mmol/L (136-145); UREA NITROGEN, BLOOD 21 mg/dL (8-21)
[2021-04-26 13:47] LABS: ALANINE AMINOTRANSFERASE 61 U/L (12-78); ALBUMIN 3.4 g/dL (3.4-4.8); ASPARTATE AMINOTRANSFERASE 25 U/L (10-37); BASOPHILS % (AUTO) 0.2 % (0.0-2.0); EOSINOPHILS % (AUTO) 0.2 % (0.0-4.0); HEMATOCRIT 33.7 % (36-54); HEMOGLOBIN 11.5 g/dL (14.0-18.0); LIPASE 109 U/L (73-393); LYMPHOCYTES # (AUTO) 0.5 K/uL (1.0-5.5); LYMPHOCYTES % (AUTO) 4.5 % (20.5-51.5); MEAN CORPUSCULAR HEMOGLOBIN 31 pg (27-31); MEAN CORPUSCULAR HGB CONC 34 % (32-36); MEAN CORPUSCULAR VOLUME 92 fL (79.0-98.0); MONOCYTES # (AUTO) 0.3 K/uL (0.0-1.0); MONOCYTES % (AUTO) 3.2 % (1.7-9.3); NEUTROPHILS # (AUTO) 9.9 K/uL (1.8-7.7); NEUTROPHILS % (AUTO) 91.9 % (40.0-70.0); PHOSPHORUS 2.8 mg/dL (2.7-4.5); PLATELET COUNT (AUTO) 226 K/uL (130-430); RED BLOOD CELL COUNT(AUTO) 3.67 MIL/uL (4.2-6.2); RED CELL DISTRIBUTION WIDTH 15.2 % (9.0-15.0); TOTAL BILIRUBIN 0.6 mg/dL (0.0-1.0); WHITE BLOOD COUNT (AUTO) 10.8 K/uL (4.8-10.8)
[2021-04-26] MEDS ORDERED: NACL 0.9% 500 ML IV ONE (14:00)
[2021-04-26 15:37] LABS: BILIRUBIN,URINE NEGATIVE (NEGATIVE); CLARITY/URINE CLEAR (CLEAR); COLOR,URINE YELLOW (YELLOW); GLUCOSE,URINE NEGATIVE (NEGATIVE); KETONES,URINE 1+ (NEGATIVE); LEUKOCYTE ESTERASE ,URINE NEGATIVE (NEGATIVE); NITRITE, URINE NEGATIVE (NEGATIVE); PROTEIN URINE 3+ (NEGATIVE); UROBILINOGEN,URINE 0.2 (0.2-1.0)
[2021-04-26 15:48] LABS: BLOOD, URINE TRACE (NEGATIVE)
[2021-04-26 15:50] LABS: BACTERIA,URINE FEW /HPF (None Seen); MUCUS,URINE None Seen /LPF (None Seen); RBC,URINE 0-3 /HPF (0-3); WBC,URINE 0-3 /HPF (0-3)
[2021-04-26] MEDS ORDERED: VANCOMYCIN HCL 1,000 MG in NS 250 ML IV ONE (16:00)
[2021-04-26] MEDS ORDERED: VANCOMYCIN HCL 1000 MG/VIAL IV ONE (16:09)
[2021-04-26] MEDS ORDERED: CETI-80 PO (16:25)
[2021-04-26] MEDS ORDERED: FLUN25SP NS (16:25)
[2021-04-26] MEDS ORDERED: REN800 PO (16:25)
[2021-04-26] MEDS ORDERED: MONT10TA33 PO (16:25)
[2021-04-26] MEDS ORDERED: NEPH PO (16:25)
[2021-04-26] MEDS ORDERED: FOLI-43 PO (16:25)
[2021-04-26] MEDS ORDERED: ASPI-1393 PO (16:25)
[2021-04-26 18:58] VITALS: BP_SYST 110
== END 2021-04-26 18:59 | disposition home or self-care (01) ==
LOC: SED 12:28
DX: R50.9 Fever, unspecified (principal); E11.9 Type 2 diabetes mellitus without complications; Z88.0 Allergy status to penicillin; Z88.8 Allergy status to other drugs, medicaments and biological substances; Z79.899 Other long term (current) drug therapy; Z20.822 Contact with and (suspected) exposure to COVID-19
CPT/HCPCS: 36415; 71045; 80053; 81000; 83605; 83690; 83735; 84100; 85025; 87040; 87426; 93005; 96361; 96365; 96366; 99285; J3370; J7030

== ENCOUNTER 2024-04-04 16:15 | Emergency (ER) | payer MEDICARE ==
[~2024-04-04] VITALS: Ht 170.2 cm; Wt 86.2 kg
[2024-04-04 16:15] VITALS: BP_SYST 216; PULSE 100; RESP 20; TEMP 97.8; O2SAT 97
[~2024-04-04 16:15] MED LIST changes: +ASPI-1393 PO; -CALC0.258 PO; +CETI-80 PO; -CLON0.1T PO; -DITXL5 PO; -DOXY100C PO; +ERGO1250 PO; -ERGO500020 PO; -FERR-69 PO; +FLUN25SP NS; +FOLI-43 PO; +HYDR100T13 PO; -HYDR100T25 PO; -INSU100V42 SQ; +INSU100V44 SQ; +MONT-40 PO; +NEPH PO; -PRO40 PO; +REN800 PO; -TRAZ-250 PO
[2024-04-04 17:56] LABS: BASOPHILS # (AUTO) 0.1 K/uL (0.0-0.2); BASOPHILS % (AUTO) 0.7 % (0.0-2.0); EOSINOPHILS # (AUTO) 0.2 K/uL (0.0-0.4); EOSINOPHILS % (AUTO) 1.7 % (0.0-4.0); LYMPHOCYTES # (AUTO) 1.4 K/uL (1.0-5.5); LYMPHOCYTES % (AUTO) 13.6 % (20.5-51.5); MEAN CORPUSCULAR HEMOGLOBIN 32 pg (27-31); MEAN CORPUSCULAR HGB CONC 35 % (32-36); MEAN CORPUSCULAR VOLUME 92 fL (79.0-98.0); MONOCYTES # (AUTO) 0.6 K/uL (0.0-1.0); MONOCYTES % (AUTO) 5.4 % (1.7-9.3); NEUTROPHILS # (AUTO) 8.3 K/uL (1.8-7.7); NEUTROPHILS % (AUTO) 78.6 % (40.0-70.0); PLATELET COUNT (AUTO) 310 K/uL (130-430); RED BLOOD CELL COUNT(AUTO) 3.49 MIL/uL (4.2-6.2); RED CELL DISTRIBUTION WIDTH 15.3 % (9.0-15.0); WHITE BLOOD COUNT (AUTO) 10.6 K/uL (4.8-10.8)
[2024-04-04] MEDS: SODIUM PHOSPHATE,MONO-DIBASIC 133 ML ENEMA RC ONE (17:59)
[2024-04-04 18:19] LABS: ALANINE AMINOTRANSFERASE 14 U/L (12-78); ALBUMIN 3.5 g/dL (3.4-4.8); AMYLASE 91 U/L (0-100); ANION GAP 11 (5-15); ASPARTATE AMINOTRANSFERASE 9 U/L (10-37); BILIRUBIN,DIRECT 0.1 mg/dL (0.0-0.3); CARBON DIOXIDE 27 mmol/L (23-29); CHLORIDE 96 mmol/L (98-107); GLUCOSE 323 mg/dL (74-106); LIPASE 286 U/L (16-77); SODIUM SERUM 134 mmol/L (136-145); TOTAL BILIRUBIN 0.4 mg/dL (0.0-1.0); TOTAL PROTEIN, SERUM 6.7 g/dL (6.4-8.3); UREA NITROGEN, BLOOD 84 mg/dL (8-21)
[2024-04-04] MEDS ORDERED: POLY17PO4 PO (18:44)
[2024-04-04] MEDS: MAGNESIUM CITRATE 300 ML ORAL SOLUTION PO ONE (18:46)
[2024-04-04 18:55] VITALS: BP_SYST 216; PULSE 100; RESP 20; TEMP 97.8; O2SAT 97
== END 2024-04-04 18:56 | disposition home or self-care (01) ==
LOC: SED 16:15
DX: K59.00 Constipation, unspecified (principal); R03.0 Elevated blood-pressure reading, without diagnosis of hypertension; E11.9 Type 2 diabetes mellitus without complications; E78.5 Hyperlipidemia, unspecified; I50.9 Heart failure, unspecified; Z88.0 Allergy status to penicillin; Z88.8 Allergy status to other drugs, medicaments and biological substances; Z79.899 Other long term (current) drug therapy; Z79.2 Long term (current) use of antibiotics; Z79.4 Long term (current) use of insulin
CPT/HCPCS: 36415; 80048; 80076; 82150; 83690; 85025; 99284